=== PATIENT | female | born 1960 | race Caucasian/White ===

== ENCOUNTER → 2017-11-05 09:15 | Observation (INO) ==
[2017-11-03 10:49] LABS: Basophils % 0.2 % (0.1-2.0); Eosinophils # 0.2 K/mm3 (0.0-0.4); Eosinophils % 1.5 % (0.1-12.0); Hematocrit 39.6 % (37.0-47.0); Hemoglobin 12.2 g/dL (12.2-16.2); Lymphocytes # 1.9 K/mm3 (0.7-4.5); Lymphocytes % 18.8 K/mm3 (10-50); Mean Corpuscular HGB Conc 30.9 g/dL (31.8-35.4); Mean Corpuscular Hemoglobin 27.8 pg (27.0-31.2); Mean Corpuscular Volume 89.9 fl (81-99); Mean Platelet Volume 8.3 fl (7.4-10.4); Monocytes # 0.6 K/mm3 (0.1-1.0); Monocytes % 6.4 % (1.7-9.3); Neutrophils # 7.3 K/mm3 (1.8-7.8); Neutrophils % 73.1 % (37.0-80.0); Platelet Count 273 K/mm3 (142-424); Red Cell Distribution Width 14.8 % (11.5-17.5)
[2017-11-03 11:02] LABS: Anion Gap 16.2 mEq/L (5-15); Bilirubin,Total 0.6 mg/dL (0.2-1.0); Globulin 4.1 gm/dl (1.3-3.2); Potassium 4.2 mmoL/L (3.5-5.1); Total Protein,Serum 8.1 gm/dL (6.4-8.2)
[2017-11-03 11:04] LABS: Amylase 40 U/L (25-125); Lipase 152 u/L (73-393)
--- NOTE | 2017-11-03 13:00 | History & Physical Report ---
*Admission Date: 11/03/17 *Chief complaint: Vomiting and diarrhea *History of present illness: 57 yr old female with history of diabetes, HTN, HLD and arthritis presented to our outpatient clinic this morning with c/o vomiting, nausea, diarrhea and abdominal pain for 5 days. She felt poorly for about 24 hours with malaise prior to onset of symptoms. She held her home medications and food for 48 hours and tried to resume PO food last night but then had emisis throughout the night last night. On exam her mucous membranes were dry, bowel sounds hyperactive and high-pitched in the upper abdomen with left upper quadrant tenderness and she was admitted for IV hydration and diagnostics. [facility] History I have reviewed the patient's past medical history: Yes Medical History: Reports:: Coronary Artery Disease, Depression, Diabetes Mellitus Type 1, Diabetes Mellitus Type 2, Hyperlipidemia, Hypertension Denies:: Cancer, Internal Pacemaker, MRSA Other Medical History: Reports: Arthritis, Hypothyroidism Other Surgeries: No: Pacemaker Amputation: No Fractures: Yes - *Social History Educational Level: Completed High School Smoking Status: Former smoker Alcohol Intake: never Occupational Status: disabled Housing: house Household Members: spouse - Psychiatric History Expresses thoughts of harming self/others: None Suicide Plan Description: No Plan *Family Hx:: Cancer, Diabetes, Heart Attack, Hyperlipidemia, Hypertension Review of Systems - Review of Systems Review of systems:: pertinent systems reviewed and negative unless documented below - Constitutional Reports anorexia, Reports malaise, Reports weakness - ENT Reports dry mouth - *Gastrointestinal Reports abdominal pain, Reports belching, Reports cramping, Reports incontinent of stools, Reports loose stools, Reports nausea, Reports vomiting Meds Home Medications Medication Instructions Recorded Confirmed Type Bisoprolol Fumarate 10 mg PO DAILY 11/03/17 11/03/17 History Duloxetine HCl 60 mg PO DAILY 11/03/17 11/03/17 History Levothyroxine Sodium 75 mcg PO DAILY 11/03/17 11/03/17 History [Levothyroxine 75mcg (0.075mg) Tab] Loratadine [Allergy] 10 mg PO DAILY 11/03/17 11/03/17 History Losartan Potassium 100 mg PO DAILY 11/03/17 11/03/17 History Lovastatin 20 mg PO DAILY 11/03/17 11/03/17 History Meloxicam 15 mg PO DAILY 11/03/17 11/03/17 History Metformin HCl 500 mg PO BID 11/03/17 11/03/17 History Omeprazole [Omeprazole 40mg 40 mg PO DAILY 11/03/17 11/03/17 History Capsule] buPROPion HCl [Bupropion Xl] 300 mg PO DAILY 11/03/17 11/03/17 History Allergies Allergy/AdvReac Type Severity Reaction Status Date / Time No Known Allergies Allergy Unverified 02/27/17 15:17 Exam Vital signs and Labs for Last 24 Hours: Temp Pulse Resp BP Pulse Ox 97.8 F 84 20 165/94 100 11/03/17 09:54 11/03/17 09:54 11/03/17 09:54 11/03/17 09:54 11/03/17 09:54 Laboratory Results - last 24 hr 11/03/17 10:30: WBC 10.0, RBC 4.40, Hgb 12.2, Hct 39.6, MCV 89.9, MCH 27.8, MCHC 30.9 L, RDW 14.8, Plt Count 273, MPV 8.3, Neut % (Auto) 73.1, Lymph % (Auto ) 18.8, [place] % (Auto) 6.4, Eos % (Auto) 1.5, Baso % (Auto) 0.2, Neut # (Auto) 7.3, Lymph # (Auto) 1.9, [place] # (Auto) 0.6, Eos # (Auto) 0.2, Baso # (Auto) 0.0 11/03/17 10:30: Sodium 138, Potassium 4.2, Chloride 102, Carbon Dioxide 24, Anion Gap 16.2 H, BUN 41 H, Creatinine 2.52 H, Estimated Creat Clear 21, Estimated GFR 20 L, Est GFR ( Amer) 24 L, Glucose 116 H, Calcium 9.0, Total Bilirubin 0.6, AST 36, ALT 75, Alkaline Phosphatase 112, Total Protein 8.1 , Albumin 4.0, Globulin 4.1 H, Albumin/Globulin Ratio 1.0 L 11/03/17 10:30: Amylase 40, Lipase 152 I & O for Last 24 hours: Intake & Output 11/01/17 11/02/17 11/03/17 11/04/17 11:59 11:59 11:59 11:59 Weight 258 lb 9 oz - Constitutional no acute distress, cooperative - *Routine HEENT Exam Head: Present: normocephalic Eye: Absent: conjunctival icterus ENT: Present: mucous membranes dry, oropharynx clear - *Routine Neck Exam Present: supple. Absent: lymphadenopathy - *Routine Respiratory Exam Present: CTA bilaterally - *Routine Cardiovascular Exam Present: RRR. Absent: murmur - *Routine Abdominal Exam Present: soft, tenderness (left upper quadrant). Absent: normoactive bowel sounds (hyperactive upper abdomen), distended, rebound, guarding - *Routine Extremities Exam Present: pulses intact, normal capillary refill. Absent: edema - *Routine Skin Exam Present: intact, dry, warm - *Routine Neurological Exam Present: alert, oriented X3. Absent: motor deficit Assessment and Plan (1) Gastroenteritis Current visit: Yes Status: Acute Category: Medical Code(s): K52.9 - Noninfective gastroenteritis and colitis, unspecified (2) JOHNNIE (acute kidney injury) Current visit: Yes Status: Acute Category: Medical Code(s): N17.9 - Acute kidney failure, unspecified (3) Abdominal pain, left upper quadrant Current visit: Yes Status: Acute Category: Medical Code(s): R10.12 - Left upper quadrant pain (4) Diabetes mellitus type 2 in obese Current visit: Yes Status: Chronic Category: Medical Code(s): E11.69 - Type 2 diabetes mellitus with other specified complication; E66.9 - Obesity, unspecified (5) HTN (hypertension) Current visit: Yes Status: Chronic Qualifiers: Hypertension type: essential hypertension Qualified Code(s): I10 - Essential (primary) hypertension Category: Medical Code(s): I10 - Essential (primary) hypertension (6) Osteoarthritis Current visit: Yes Status: Chronic Qualifiers: Osteoarthritis location: multiple joints Category: Medical Code(s): M19.90 - Unspecified osteoarthritis, unspecified site (7) Morbid obesity Current visit: Yes Status: Chronic Category: Medical Code(s): E66.01 - Morbid (severe) obesity due to excess calories - Assessment and plan all Dx Assessment and Plan for all problems:: Creatinine 2.52, baseline 1.0. Likely pre-renal. Will rehydrate with NS at 125ml /hr. Vitals are currently stable. Monitor urine output and repeat AM labs. NPO until CT abdomen obtained with oral contrast to evaluate for more concerning abdominal pathology. Once CT completed will begin clear liquid diet as tolerated. Hold metformin, ARB and NSAIDS. FSBS AC and HS with low-intensity SSI for coverage. Diarrhea PCR, urinalysis, blood cultures. IV PPI for GI protection.
--- NOTE | 2017-11-03 13:06 | Pharmacy Consult Notes ---
[facility] Pharmacy VTE Monitoring - Patient Demographics Admission date: 11/03/17 Report Date: 11/03/17 Time: 13:05 Allergies/Adverse Reactions: Patient Allergies No Known Allergies Allergy (Unverified 02/27/17 15:17) Height: 1.63 m Weight: 117.282 kg - VTE Risk Labs: VTE Related Lab Results Hgb 12.2 g/dL (12.2-16.2) 11/03/17 10:30 Hct 39.6 % (37.0-47.0) 11/03/17 10:30 Plt Count 273 K/mm3 (142-424) 11/03/17 10:30 BUN 41 mg/dL (7-18) H 11/03/17 10:30 Creatinine 2.52 mg/dL (0.55-1.02) H 11/03/17 10:30 Estimated Creat Clear 21 mL/min (0-300) 11/03/17 10:30 Was VTE Risk Assessment Performed: Yes VTE Score: 5 VTE Risk Level: Low Risk - Prophylaxis VTE Prophylaxis Ordered?: Yes Types of VTE Prophylaxis: TEDS Knee High Location of Applied Device: Bilateral Lower Extremeties - VTE Diagnosis Confirmed Treatment or plan recommended: Continue Current Treatment
[2017-11-03 13:17] LABS: Microscopic, Urine URINE MICROSCOPIC (MICROSCOPIC)
[2017-11-03 13:24] LABS: Appearance,Urine CLOUDY (Clear); Blood, Urine TRACE-L (Negative); Color,Urine YELLOW (Yellow); Glucose,Urine (UA) Negative (Negative); Ketones,Urine Negative (Negative); Leukocyte Esterase,Urine 2+ (Negative); PH,Urine 5.5 (5.0-8.5); Protein,Urine TRACE (Negative); Specific Gravity, Urine >= 1.030 (1.005-1.030); Urobilinogen,Urine 0.2 EU/dl (0.2)
[2017-11-03 13:48] LABS: Amorphous Sediment,Urine 2+ /lpf; Bacteria,Urine 3+ /lpf; Bilirubin,Urine Negative (Negative); WBC,Urine 20-50 #/hpf (0-3)
[2017-11-04 06:29] LABS: Basophils % 0.3 % (0.1-2.0); Eosinophils # 0.2 K/mm3 (0.0-0.4); Eosinophils % 2.2 % (0.1-12.0); Hematocrit 35.1 % (37.0-47.0); Hemoglobin 11.1 g/dL (12.2-16.2); Lymphocytes # 2.2 K/mm3 (0.7-4.5); Mean Corpuscular HGB Conc 31.5 g/dL (31.8-35.4); Mean Corpuscular Hemoglobin 27.9 pg (27.0-31.2); Mean Corpuscular Volume 88.7 fl (81-99); Mean Platelet Volume 8.5 fl (7.4-10.4); Monocytes # 0.6 K/mm3 (0.1-1.0); Monocytes % 5.9 % (1.7-9.3); Neutrophils # 7.3 K/mm3 (1.8-7.8); Neutrophils % 70.5 % (37.0-80.0); Platelet Count 240 K/mm3 (142-424); Red Blood Count 3.96 M/mm3 (4.20-5.40); Red Cell Distribution Width 14.9 % (11.5-17.5); White Blood Count 10.4 K/mm3 (4.8-10.8)
[2017-11-04 06:34] LABS: Anion Gap 13.9 mEq/L (5-15); Potassium 3.9 mmoL/L (3.5-5.1)
[2017-11-04 06:57] LABS: Calcium 7.8 mg/dL (8.5-10.1)
--- NOTE | 2017-11-04 08:47 | Progress Note ---
Internal Medicine - PN: Subj *Date: 11/04/17 *Time: 08:46 Interval history: Patient feels better, continues to have some episodes of diarrhea. No fevers, no vomiting. Has kept on liquids this morning. Exam Vital signs and Labs for Last 24 Hours: Temp Pulse Resp BP Pulse Ox 98.8 F 96 H 18 127/82 95 11/04/17 07:35 11/04/17 07:35 11/04/17 07:35 11/04/17 07:35 11/04/17 07:35 Laboratory Results - last 24 hr 11/03/17 10:30: WBC 10.0, RBC 4.40, Hgb 12.2, Hct 39.6, MCV 89.9, MCH 27.8, MCHC 30.9 L, RDW 14.8, Plt Count 273, MPV 8.3, Neut % (Auto) 73.1, Lymph % (Auto ) 18.8, [place] % (Auto) 6.4, Eos % (Auto) 1.5, Baso % (Auto) 0.2, Neut # (Auto) 7.3, Lymph # (Auto) 1.9, [place] # (Auto) 0.6, Eos # (Auto) 0.2, Baso # (Auto) 0.0 11/03/17 10:30: Sodium 138, Potassium 4.2, Chloride 102, Carbon Dioxide 24, Anion Gap 16.2 H, BUN 41 H, Creatinine 2.52 H, Estimated Creat Clear 21, Estimated GFR 20 L, Est GFR ( Amer) 24 L, Glucose 116 H, Calcium 9.0, Total Bilirubin 0.6, AST 36, ALT 75, Alkaline Phosphatase 112, Total Protein 8.1 , Albumin 4.0, Globulin 4.1 H, Albumin/Globulin Ratio 1.0 L 11/03/17 10:30: Amylase 40, Lipase 152 11/03/17 11:22: POC Glucose 140 H 11/03/17 13:11: Stl Aeromonas (PCR) Not detected, Stl C. cayetanensis PCR Not detected, Stool Rotavirus (PCR) Not detected, Stl Adenov F 40/41 PCR Not detected, Stool Astrovirus (PCR) Not detected, Stool Campylobacter PCR Not detected, Stl C.difficile Tox PCR Not detected, Stool Cryptosporidium PCR Not detected, Stl E.coli Shiga Tox PCR Not detected, Stool E coli O157 PCR Not detected, Stl Enterotoxigenic E PCR Not detected, Stool EPEC (PCR) Not detected , Stool EAEC (PCR) Not detected, Stl E. histolytica PCR Not detected, Stool Giardia Lamblia PCR Not detected, Stool Salmonella PCR Not detected, Stool Sapovirus (PCR) Not detected, Stl P. shigelloides PCR Not detected, Stl Shigella /EIEC PCR Not detected, St Y.enterocolitica PCR Not detected, Stool Vibrio (PCR ) Not detected, Stl Vibrio cholerae PCR Not detected, Stl Norovirus GI/GII PCR Not detected 11/03/17 13:11: Urine Color Yellow, Urine Appearance Cloudy, Urine pH 5.5, Ur Specific [place] >= 1.030, Urine Protein Trace, Urine Glucose (UA) Negative, Urine Ketones Negative, Urine Blood Trace-l, Urine Nitrate Negative, Urine Bilirubin Negative, Urine Urobilinogen 0.2, Ur Leukocyte Esterase 2+ A, Urine WBC 20-50, Ur Squamous Epith Cells 10-20, Amorphous Sediment 2+, Urine Bacteria 3+, Hyaline Casts 5-10 11/03/17 16:02: POC Glucose 87 11/03/17 20:23: POC Glucose 117 H 11/04/17 06:13: WBC 10.4, RBC 3.96 L, Hgb 11.1 L, Hct 35.1 L, MCV 88.7, MCH 27.9 , MCHC 31.5 L, RDW 14.9, Plt Count 240, MPV 8.5, Neut % (Auto) 70.5, Lymph % ( Auto) 21.0, [place] % (Auto) 5.9, Eos % (Auto) 2.2, Baso % (Auto) 0.3, Neut # (Auto ) 7.3, Lymph # (Auto) 2.2, [place] # (Auto) 0.6, Eos # (Auto) 0.2, Baso # (Auto) 0.0 11/04/17 06:13: Sodium 140, Potassium 3.9, Chloride 107, Carbon Dioxide 23, Anion Gap 13.9, BUN 29 H D, Creatinine 1.70 H D, Estimated Creat Clear 31, Estimated GFR 31 L, Est GFR ( Amer) 37 L D, Glucose 118 H, Calcium 7.8 L D 11/04/17 06:38: POC Glucose 119 H I & O for Last 24 hours: Intake & Output 11/01/17 11/02/17 11/03/17 11/04/17 11:59 11:59 11:59 11:59 Intake Total 3531 / 3531 Output Total 402 / 402 Balance 3129 / 3129 Weight 258 lb 9 oz 258 lb 9 oz Microbiology Reports for the Last 24 Hours: Microbiology 11/03/17 13:11 Urine,Clean Catch Urine Culture - Preliminary Gram Negative Rods Narrative: ENT exam clear. Oral mucosa is much more moist than yesterday. Lungs have clear air movement, but rate regular without murmurs abdomen soft, slightly tender in the lower quadrants. No ankle edema. Assessment and Plan (1) Gastroenteritis Current visit: Yes Status: Acute Category: Medical Code(s): K52.9 - Noninfective gastroenteritis and colitis, unspecified (2) JOHNNIE (acute kidney injury) Current visit: Yes Status: Acute Category: Medical Code(s): N17.9 - Acute kidney failure, unspecified Overall improving. Creatinine down to 1.7. Monitor again tomorrow morning. Advance diet as tolerated. (3) Abdominal pain, left upper quadrant Current visit: Yes Status: Acute Category: Medical Code(s): R10.12 - Left upper quadrant pain (4) Diabetes mellitus type 2 in obese Current visit: Yes Status: Chronic Category: Medical Code(s): E11.69 - Type 2 diabetes mellitus with other specified complication; E66.9 - Obesity, unspecified (5) HTN (hypertension) Current visit: Yes Status: Chronic Qualifiers: Hypertension type: essential hypertension Qualified Code(s): I10 - Essential (primary) hypertension Category: Medical Code(s): I10 - Essential (primary) hypertension (6) Osteoarthritis Current visit: Yes Status: Chronic Qualifiers: Osteoarthritis location: multiple joints Category: Medical Code(s): M19.90 - Unspecified osteoarthritis, unspecified site (7) Morbid obesity Current visit: Yes Status: Chronic Category: Medical Code(s): E66.01 - Morbid (severe) obesity due to excess calories
[2017-11-05 05:25] LABS: Basophils % 0.3 % (0.1-2.0); Eosinophils # 0.2 K/mm3 (0.0-0.4); Eosinophils % 2.7 % (0.1-12.0); Lymphocytes # 1.7 K/mm3 (0.7-4.5); Lymphocytes % 30.4 K/mm3 (10-50); Mean Corpuscular HGB Conc 35.1 g/dL (31.8-35.4); Mean Corpuscular Hemoglobin 31.1 pg (27.0-31.2); Mean Corpuscular Volume 88.7 fl (81-99); Mean Platelet Volume 9.4 fl (7.4-10.4); Monocytes # 0.4 K/mm3 (0.1-1.0); Monocytes % 7.2 % (1.7-9.3); Neutrophils # 3.4 K/mm3 (1.8-7.8); Neutrophils % 59.5 % (37.0-80.0); Platelet Count 161 K/mm3 (142-424); Red Blood Count 3.16 M/mm3 (4.20-5.40); Red Cell Distribution Width 14.9 % (11.5-17.5); White Blood Count 5.7 K/mm3 (4.8-10.8)
[2017-11-05 05:33] LABS: Anion Gap 14.8 mEq/L (5-15); Calcium 7.7 mg/dL (8.5-10.1); Potassium 3.8 mmoL/L (3.5-5.1)
[2017-11-05 05:46] LABS: Hemoglobin 9.9 g/dL (12.2-16.2)
--- NOTE | 2017-11-05 08:28 | Discharge Summary ---
General - General Admission date:: 11/03/17 Discharge date: 11/05/17 HPI HPI: 57 yr old female with history of diabetes, HTN, HLD and arthritis presented to our outpatient clinic this morning with c/o vomiting, nausea, diarrhea and abdominal pain for 5 days. She felt poorly for about 24 hours with malaise prior to onset of symptoms. She held her home medications and food for 48 hours and tried to resume PO food last night but then had emisis throughout the night last night. On exam her mucous membranes were dry, bowel sounds hyperactive and high-pitched in the upper abdomen with left upper quadrant tenderness and she was admitted for IV hydration and diagnostics. Hospital Course Hospital Course: Patient was admitted, found to have acute kidney injury with creatinine greater than 2, her baseline is usually normal. CT of abdomen and pelvis was essentially unremarkable. Rehydrated and improved very nicely and diet was slowly advanced and she tolerated this well although did continue to have ongoing episodes of loose stools. Of note diarrhea PCR testing was unremarkable with no organisms detected She was found to have urinary tract infection with E. coli, pansensitive, tentative to most antibiotics. This morning she was improving. Taking oral fluids well. Plan will be to discharge home on ciprofloxacin. Have blood work ordered in 2 days to reassess her kidney function, I have instructed her to hold her metformin and meloxicam for the time being because of her diarrhea and acute kidney injury respectively. She will be followed up in our [place] office to reassess response to therapy and review her lab work. Objective Vital signs: Temp Pulse Resp BP Pulse Ox 98.3 F 86 18 133/83 98 11/05/17 07:41 11/05/17 07:41 11/05/17 07:41 11/05/17 07:41 11/05/17 07:41 Narrative: This morning patient is alert, pleasant. Talkative. Oriented 3. Oral mucosa moist. No JVD. Lungs are clear. Heart rate regular. Abdomen is soft, no tenderness noted. No edema. Morbid obesity is noted and limits her exam accuracy, complicates all aspects of her care. Results Labs on day of discharge: Labs from last 24 hours 11/05/17 11/05/17 11/05/17 06:11 05:17 05:17 WBC 5.7 D RBC 3.16 L Hgb 9.9 L D Hct 28.0 L MCV 88.7 MCH 31.1 MCHC 35.1 RDW 14.9 Plt Count 161 D MPV 9.4 Neut % (Auto) 59.5 Lymph % (Auto) 30.4 [place] % (Auto) 7.2 Eos % (Auto) 2.7 Baso % (Auto) 0.3 Neut # (Auto) 3.4 Lymph # (Auto) 1.7 [place] # (Auto) 0.4 Eos # (Auto) 0.2 Baso # (Auto) 0.0 Sodium 142 Potassium 3.8 Chloride 109 H Carbon Dioxide 22 Anion Gap 14.8 BUN 13 D Creatinine 1.34 H D Estimated Creat Clear 39 Estimated GFR 40 L Est GFR ( Amer) 49 L D Glucose 107 H POC Glucose 110 Calcium 7.7 L Urine Color Urine Appearance Urine pH Ur Specific [place] Urine Protein Urine Glucose (UA) Urine Ketones Urine Blood Urine Nitrate Urine Bilirubin Urine Urobilinogen Ur Leukocyte Esterase Urine WBC Ur Squamous Epith Cells Amorphous Sediment Urine Bacteria Hyaline Casts 11/04/17 11/04/17 11/04/17 20:39 15:17 11:32 WBC RBC Hgb Hct MCV MCH MCHC RDW Plt Count MPV Neut % (Auto) Lymph % (Auto) [place] % (Auto) Eos % (Auto) Baso % (Auto) Neut # (Auto) Lymph # (Auto) [place] # (Auto) Eos # (Auto) Baso # (Auto) Sodium Potassium Chloride Carbon Dioxide Anion Gap BUN Creatinine Estimated Creat Clear Estimated GFR Est GFR ( Amer) Glucose POC Glucose 109 117 H 125 H Calcium Urine Color Urine Appearance Urine pH Ur Specific [place] Urine Protein Urine Glucose (UA) Urine Ketones Urine Blood Urine Nitrate Urine Bilirubin Urine Urobilinogen Ur Leukocyte Esterase Urine WBC Ur Squamous Epith Cells Amorphous Sediment Urine Bacteria Hyaline Casts 11/03/17 13:11 WBC RBC Hgb Hct MCV MCH MCHC RDW Plt Count MPV Neut % (Auto) Lymph % (Auto) [place] % (Auto) Eos % (Auto) Baso % (Auto) Neut # (Auto) Lymph # (Auto) [place] # (Auto) Eos # (Auto) Baso # (Auto) Sodium Potassium Chloride Carbon Dioxide Anion Gap BUN Creatinine Estimated Creat Clear Estimated GFR Est GFR ( Amer) Glucose POC Glucose Calcium Urine Color Yellow Urine Appearance Cloudy Urine pH 5.5 Ur Specific [place] >= 1.030 Urine Protein Trace Urine Glucose (UA) Negative Urine Ketones Negative Urine Blood Trace-l Urine Nitrate Negative Urine Bilirubin Negative Urine Urobilinogen 0.2 Ur Leukocyte Esterase 2+ A Urine WBC 20-50 Ur Squamous Epith Cells 10-20 Amorphous Sediment 2+ Urine Bacteria 3+ Hyaline Casts 5-10 Preliminary micro results at discharge 11/03/17 13:11 Urine Culture - Preliminary Urine,Clean Catch Escherichia coli Gram Negative Rods DS: Diagnosis - Discharge Diagnosis (1) Gastroenteritis Status: Resolved (2) JOHNNIE (acute kidney injury) Status: Resolved (3) Abdominal pain, left upper quadrant Status: Resolved (4) Diabetes mellitus type 2 in obese Status: Chronic (5) HTN (hypertension) Status: Chronic (6) Osteoarthritis Status: Chronic (7) Morbid obesity Status: Chronic (8) E. coli UTI Status: Acute Discharge Plan - Patient Discharge Instructions ACTIVITY: Continue current activity DIET: low fat, low cholesterol - Follow up Plan Follow up with: Hari Hobbs MD [Staff Physician] - 11/08/17 Disposition: Home, Self-Alf Medications: Home Medications Medication Instructions Recorded Confirmed Type Bisoprolol Fumarate 10 mg PO DAILY 11/03/17 11/03/17 History Duloxetine HCl 60 mg PO DAILY 11/03/17 11/03/17 History Levothyroxine Sodium 75 mcg PO DAILY 11/03/17 11/03/17 History [Levothyroxine 75mcg (0.075mg) Tab] Loratadine [Allergy] 10 mg PO DAILY 11/03/17 11/03/17 History Losartan Potassium 100 mg PO DAILY 11/03/17 11/03/17 History Lovastatin 20 mg PO DAILY 11/03/17 11/03/17 History Meloxicam 15 mg PO DAILY 11/03/17 11/03/17 History Metformin HCl 500 mg PO BID 11/03/17 11/03/17 History Omeprazole [Omeprazole 40mg 40 mg PO DAILY 11/03/17 11/03/17 History Capsule] Verapamil HCl 120 mg PO BID 11/03/17 11/03/17 History buPROPion HCl [Bupropion Xl] 300 mg PO DAILY 11/03/17 11/03/17 History Prescriptions/Medication Reconciliation: New Loperamide HCl [Loperamide] 1 mg PO Q6HP PRN #15 liquid PRN Reason: Diarrhea Ciprofloxacin HCl [Ciprofloxacin 500mg Tab] 500 mg PO BID #10 tab Continue Levothyroxine Sodium [Levothyroxine 75mcg (0.075mg) Tab] 75 mcg PO DAILY Omeprazole [Omeprazole 40mg Capsule] 40 mg PO DAILY Lovastatin 20 mg PO DAILY Losartan Potassium 100 mg PO DAILY Loratadine [Allergy] 10 mg PO DAILY Duloxetine HCl 60 mg PO DAILY buPROPion HCl [Bupropion Xl] 300 mg PO DAILY Bisoprolol Fumarate 10 mg PO DAILY Verapamil HCl 120 mg PO BID Discontinued Metformin HCl 500 mg PO BID Meloxicam 15 mg PO DAILY Other Amb Orders: Basic Metabolic Panel Time Frame: 11/07/17, Facility: [facility] , Location: [facility] Location
== END | disposition home or self-care (01) ==
LOC: 2ND
PROVIDERS: ADMIT Internal Medicine Adolescent Medicine; ATTEND Internal Medicine Adolescent Medicine
CPT/HCPCS: 36415; 74176; 80048; 80053; 81001; 82150; 82962; 83690; 85025; 87040; 87086; 87088; 87186; 87507; G0378; J2405

== ENCOUNTER → 2017-11-07 10:15 | Outpatient (CLI) | payer OTHER, MEDICARE, SELFPAY ==
[2017-11-07 13:50] LABS: Anion Gap 15.6 mEq/L (5-15); Blood Urea Nitrogen 13 mg/dL (7-18); Calcium 8.4 mg/dL (8.5-10.1); Carbon Dioxide 25 mmol/L (21.0-32.0); Chloride 106 mmol/L (98-107); Creatinine,Serum 1.37 mg/dL (0.55-1.02); Estimated Glomerular Filt Rate 39 ml/min (>60); GFR (African American) 48 ML/MIN (>60); Glucose 128 mg/dL (74-106); Potassium 3.6 mmoL/L (3.5-5.1); Sodium 143 mmol/L (136-145)
== END ==
PROVIDERS: PCP Internal Medicine Adolescent Medicine; Visit Provider Internal Medicine Adolescent Medicine
DX: N17.9 Acute kidney failure, unspecified (principal)
CPT/HCPCS: 36415; 80048

== ENCOUNTER → 2018-06-21 10:59 | Outpatient (CLI) | payer OTHER, MEDICARE, SELFPAY ==
[2018-06-21 13:47] LABS: Anion Gap 17.9 mEq/L (5-15); Blood Urea Nitrogen 29 mg/dL (7-18); Calcium 8.9 mg/dL (8.5-10.1); Carbon Dioxide 25 mmol/L (21.0-32.0); Chloride 103 mmol/L (98-107); Creatinine,Serum 1.42 mg/dL (0.55-1.02); Estimated Glomerular Filt Rate 38 ml/min (>60); GFR (African American) 46 ML/MIN (>60); Glucose 144 mg/dL (74-106); Potassium 4.9 mmoL/L (3.5-5.1); Sodium 141 mmol/L (136-145)
== END ==
PROVIDERS: PCP Internal Medicine Adolescent Medicine; Visit Provider Internal Medicine Adolescent Medicine
DX: R94.4 Abnormal results of kidney function studies (principal)
CPT/HCPCS: 36415; 80048

== ENCOUNTER → 2018-07-04 09:36 | Outpatient (CLI) | payer OTHER, MEDICARE, SELFPAY ==
--- NOTE | 2018-07-04 09:47 | US_ITS ---
US Kidney CLINICAL INDICATION: ITS.REASON: ABNORMAL KIDNEY FUNCTION ORDERING PHYSICIAN: Esperanza Quintana APRN PATIENT AGE: 58 years Comparison: None FINDINGS: The right kidney is 10 x 4 x 6 cm. There is mild cortical thinning. No hydronephrosis mass or perinephric fluid. There is mild splenomegaly at 14 cm. The left kidney is 10 x 4 x 5 cm with cortical thinning. No hydronephrosis mass or perinephric fluid collection. IMPRESSION: Bilateral renal cortical thinning, no hydronephrosis apparent
== END ==
PROVIDERS: PCP Internal Medicine Adolescent Medicine; Visit Provider Nurse Practitioner Family
DX: R94.4 Abnormal results of kidney function studies (principal)
CPT/HCPCS: 76770

== ENCOUNTER → 2018-07-06 09:57 | Outpatient (CLI) | payer OTHER, MEDICARE, SELFPAY ==
[2018-07-06 11:59] LABS: Creatinine,Urine Random 101 mg/dL (20-320)
[2018-07-06 12:02] LABS: Creatinine,Serum 1.25 mg/dL (0.55-1.02)
[2018-07-06 12:36] LABS: Collection Time,Urine 24 hours; Creatinine 24 Hour,Urine 1717 mg/24hr (630-2500); Creatinine Clearance Urine 75.4 mL/min (25-115); Patient Height,Urine 63 inches; Patient Weight,Urine 270 lbs; Total Volume,Urine 1700 mL (600-1600)
[2018-07-08 16:15] LABS: Albumin, U 28.8 % (.); Alpha-1-Globulin, U 1.2 % (.); Alpha-2-Globulin, U 12.1 % (.); M-Spike, % Not Observed % (Not Observed); Prot,24hr calculated 366 mg/24 hr (30-150); Protein,Total,Urine 21.5 mg/dL (Not Estab.)
== END ==
PROVIDERS: Visit Provider Internal Medicine Adolescent Medicine
DX: N28.9 Disorder of kidney and ureter, unspecified (principal)
CPT/HCPCS: 36415; 82570; 82575; 84156; 84166

== ENCOUNTER 2019-02-18 17:22 | Observation (INO) ==
[2019-02-18 18:20] LABS: Basophils # 0.1 K/mm3 (0-0.2); Basophils % 0.7 % (0.1-2.0); Eosinophils # 0.2 K/mm3 (0.0-0.4); Eosinophils % 1.5 % (0.1-12.0); Hematocrit 32.7 % (37.0-47.0); Hemoglobin 10.1 g/dL (12.2-16.2); Lymphocytes # 2.4 K/mm3 (0.7-4.5); Lymphocytes % 20.3 % (10-50); Mean Corpuscular HGB Conc 30.9 g/dL (31.8-35.4); Mean Corpuscular Volume 87.4 fl (81-99); Mean Platelet Volume 9.3 fl (7.4-10.4); Monocytes # 0.6 K/mm3 (0.1-1.0); Monocytes % 4.9 % (1.7-9.3); Neutrophils # 8.4 K/mm3 (1.8-7.8); Neutrophils % 72.7 % (37.0-80.0); Platelet Count 231 K/mm3 (142-424); Red Blood Count 3.75 M/mm3 (4.20-5.40); Red Cell Distribution Width 14.7 % (11.5-17.5); White Blood Count 11.6 K/mm3 (4.8-10.8)
[2019-02-18 18:23] LABS: Calcium 8.4 mg/dL (8.5-10.1)
[2019-02-19 06:24] LABS: Basophils # 0.1 K/mm3 (0-0.2); Basophils % 0.6 % (0.1-2.0); Eosinophils # 0.2 K/mm3 (0.0-0.4); Eosinophils % 1.9 % (0.1-12.0); Hematocrit 31.5 % (37.0-47.0); Hemoglobin 9.5 g/dL (12.2-16.2); Lymphocytes # 2.2 K/mm3 (0.7-4.5); Lymphocytes % 22.6 % (10-50); Mean Corpuscular HGB Conc 30.2 g/dL (31.8-35.4); Mean Corpuscular Volume 87.6 fl (81-99); Mean Platelet Volume 9.7 fl (7.4-10.4); Monocytes # 0.7 K/mm3 (0.1-1.0); Monocytes % 6.9 % (1.7-9.3); Neutrophils # 6.6 K/mm3 (1.8-7.8); Neutrophils % 68.1 % (37.0-80.0); Platelet Count 230 K/mm3 (142-424); Red Cell Distribution Width 14.8 % (11.5-17.5); White Blood Count 9.7 K/mm3 (4.8-10.8)
[2019-02-19 06:48] LABS: Anion Gap 14.4 mEq/L (5-15); Calcium 8.3 mg/dL (8.5-10.1)
--- NOTE | 2019-02-19 07:59 | H&P/Discharge Summary ---
General - General Admission date:: 02/18/19 Discharge date: 02/19/19 *Admission Date: 02/18/19 *Chief complaint: Weakness and dizziness/orthostasis *History of present illness: 58-year-old white female with multiple medical problems including morbid obesity, hypertension, history of mild renal insufficiency, who is on multiple blood pressure medications. Came to the office yesterday with a chief complaint of polydipsia without polyuria, recent exposure to gastrointestinal illness from grandchildren but no diarrhea or vomiting. She had mild nausea. In the office she was found to have orthostasis with 30 point systolic pressure dropped and was very dizzy when she stood up. Transferred to the infusion department at [facility] for saline infusions and labs, was found to have significant acute kidney injury with creatinine 2.35, over her baseline of 1.4 and was admitted to hospital for further evaluation and IV fluids. [facility] History I have reviewed the patient's past medical history: Yes Medical History: Reports:: Coronary Artery Disease, Depression, Diabetes Mellitus Type 1, Diabetes Mellitus Type 2, Hyperlipidemia, Hypertension Denies:: Cancer, Internal Pacemaker, MRSA *Have you ever received a pneumonia vaccine?: No *Have you received a flu vaccine this season?: Yes Other Medical History: Reports: Arthritis, Hypothyroidism Other Surgeries: Yes: Colonoscopy, EGD, Tubal Ligation, Other. No: Pacemaker Amputation: No Fractures: Yes - *Social History Educational Level: Completed High School Smoking Status: Former smoker Tobacco Type: cigarettes Alcohol Intake: never *Occupational Status:: disabled Housing: house Household Members: spouse *Travel in the last 8 weeks: None - Psychiatric History Pschychiatric History:: Reports:: Depression Family Hx:: Cancer, Diabetes, Heart Attack, Hyperlipidemia, Hypertension Review of Systems - Review of Systems Review of systems:: pertinent systems reviewed and negative unless documented below See HPI for positive review of systems. Cardiac and pulmonary issues reviewed and are negative. Otherwise 10 point review of systems negative as noted. Exam Vital signs and Labs for Last 24 Hours: Temp Pulse Resp BP Pulse Ox 98.6 F 96 H 18 130/79 95 02/19/19 04:00 02/19/19 04:00 02/19/19 04:00 02/19/19 04:00 02/19/19 04:00 Laboratory Results - last 24 hr 02/18/19 17:45: WBC 11.6 H, RBC 3.75 L, Hgb 10.1 L, Hct 32.7 L, MCV 87.4, MCH 27.0, MCHC 30.9 L, RDW 14.7, Plt Count 231, MPV 9.3, Neut % (Auto) 72.7, Lymph % (Auto) 20.3, Antelope % (Auto) 4.9, Eos % (Auto) 1.5, Baso % (Auto) 0.7, Neut # (Auto) 8.4 H, Lymph # (Auto) 2.4, Antelope # (Auto) 0.6, Eos # (Auto) 0.2, Baso # ( Auto) 0.1 02/18/19 17:45: Sodium 139, Potassium 5.0, Chloride 101, Carbon Dioxide 26, Anion Gap 17.0 H, BUN 31 H, Creatinine 2.53 H, Estimated Creat Clear 20, Estimated GFR 19 L*, Est GFR ( Amer) 23 L, Glucose 114 H, Calcium 8.4 L 02/18/19 17:45: Lactate 2.2 H 02/18/19 21:53: Lactate 2.1 H 02/18/19 23:50: Lactate 1.3 02/19/19 06:00: Sodium 139, Potassium 4.4, Chloride 103, Carbon Dioxide 26, Anion Gap 14.4, BUN 25 H, Creatinine 1.50 H D, Estimated Creat Clear 33, Estimated GFR 35 L, Est GFR ( Amer) 43 L D, Glucose 123 H, Calcium 8.3 L 02/19/19 06:00: WBC 9.7, RBC 3.60 L, Hgb 9.5 L, Hct 31.5 L, MCV 87.6, MCH 26.5 L , MCHC 30.2 L, RDW 14.8, Plt Count 230, MPV 9.7, Neut % (Auto) 68.1, Lymph % (Auto) 22.6, Antelope % (Auto) 6.9, Eos % (Auto) 1.9, Baso % (Auto) 0.6, Neut # (Auto) 6.6, Lymph # (Auto) 2.2, Antelope # (Auto) 0.7, Eos # (Auto) 0.2, Baso # (Auto) 0.1 I & O for Last 24 hours: Intake & Output 02/16/19 02/17/19 02/18/19 02/19/19 11:59 11:59 11:59 11:59 Intake Total 3170 / 3170 Output Total 100 / 100 Balance 3070 / 3070 Weight 283 lb 7 oz Narrative: In the office patient was pleasant, talkative. Orthostatic. Dizzy when she stood up and walked. No other neurologic deficits. Cranial ner ves were intact, oropharynx dry but clear. Lungs clear. Heart rate regular. Not tachycardic. Abdomen soft and nontender. Obesity limits her exam accuracy. No CVA tenderness. Minimal suprapubic tenderness. No edema or clubbing. Hospital Course Hospital Course: Patient was admitted. Saline infusions were continued. Blood and urine cultures were drawn. She had no fever. Leukocytosis was not noted. She has a mild anemia which was slightly worsened with saline administration and dilution. However this morning she felt much better, creatinine had come down to 1.5. She is urinating normally. No more orthostasis and her dizziness is resolved. Urine and blood cultures are pending. Plan would to discharge home. I will hold her losartan, short-term follow-up in my office in 48 hours and labs tomorrow, we will need to reassess her anemia work-up and kidney function in the office. Results Labs on day of discharge: Labs from last 24 hours 02/19/19 02/19/19 02/18/19 06:00 06:00 23:50 WBC 9.7 RBC 3.60 L Hgb 9.5 L Hct 31.5 L MCV 87.6 MCH 26.5 L MCHC 30.2 L RDW 14.8 Plt Count 230 MPV 9.7 Neut % (Auto) 68.1 Lymph % (Auto) 22.6 Antelope % (Auto) 6.9 Eos % (Auto) 1.9 Baso % (Auto) 0.6 Neut # (Auto) 6.6 Lymph # (Auto) 2.2 Antelope # (Auto) 0.7 Eos # (Auto) 0.2 Baso # (Auto) 0.1 Sodium 139 Potassium 4.4 Chloride 103 Carbon Dioxide 26 Anion Gap 14.4 BUN 25 H Creatinine 1.50 H D Estimated Creat Clear 33 Estimated GFR 35 L Est GFR ( Amer) 43 L D Glucose 123 H Lactate 1.3 Calcium 8.3 L 02/18/19 02/18/19 02/18/19 21:53 17:45 17:45 WBC RBC Hgb Hct MCV MCH MCHC RDW Plt Count MPV Neut % (Auto) Lymph % (Auto) Antelope % (Auto) Eos % (Auto) Baso % (Auto) Neut # (Auto) Lymph # (Auto) Antelope # (Auto) Eos # (Auto) Baso # (Auto) Sodium 139 Potassium 5.0 Chloride 101 Carbon Dioxide 26 Anion Gap 17.0 H BUN 31 H Creatinine 2.53 H Estimated Creat Clear 20 Estimated GFR 19 L* Est GFR ( Amer) 23 L Glucose 114 H Lactate 2.1 H 2.2 H Calcium 8.4 L 02/18/19 17:45 WBC 11.6 H RBC 3.75 L Hgb 10.1 L Hct 32.7 L MCV 87.4 MCH 27.0 MCHC 30.9 L RDW 14.7 Plt Count 231 MPV 9.3 Neut % (Auto) 72.7 Lymph % (Auto) 20.3 Antelope % (Auto) 4.9 Eos % (Auto) 1.5 Baso % (Auto) 0.7 Neut # (Auto) 8.4 H Lymph # (Auto) 2.4 Antelope # (Auto) 0.6 Eos # (Auto) 0.2 Baso # (Auto) 0.1 Sodium Potassium Chloride Carbon Dioxide Anion Gap BUN Creatinine Estimated Creat Clear Estimated GFR Est GFR ( Amer) Glucose Lactate Calcium DS: Diagnosis - Discharge Diagnosis (1) Orthostatic hypotension Status: Resolved (2) JOHNNIE (acute kidney injury) Status: Resolved Discharge Plan - Patient Discharge Instructions ACTIVITY: Continue current activity DIET: continue same diet - Follow up Plan Follow up with: Esperanza Quintana APRN [Nurse Practitioner] - 02/21/19 Disposition: Home, Self-Nursing Home Medications: Home Medications Medication Instructions Recorded Confirmed Type Duloxetine HCl 60 mg PO DAILY 11/03/17 02/18/19 History Levothyroxine Sodium 75 mcg PO DAILY 11/03/17 02/18/19 History [Levothyroxine 75mcg (0.075mg) Tab] Losartan Potassium 100 mg PO DAILY 11/03/17 02/18/19 History Lovastatin 20 mg PO DAILY 11/03/17 02/18/19 History Omeprazole [Omeprazole 40mg 40 mg PO DAILY 11/03/17 02/18/19 History Capsule] Verapamil HCl 120 mg PO BID 11/03/17 02/18/19 History Cetirizine HCl [Zyrtec] 10 mg PO DAILY 02/18/19 02/18/19 History Prescriptions/Medication Reconciliation: Continued Levothyroxine Sodium [Levothyroxine 75mcg (0.075mg) Tab] 75 mcg PO DAILY Omeprazole [Omeprazole 40mg Capsule] 40 mg PO DAILY Lovastatin 20 mg PO DAILY Duloxetine HCl 60 mg PO DAILY Verapamil HCl 120 mg PO BID Cetirizine HCl [Zyrtec] 10 mg PO DAILY Discontinued Losartan Potassium 100 mg PO DAILY Other Amb Orders: Basic Metabolic Panel Time Frame: 02/20/19, Location: None Selected Complete Blood Count Auto Diff Time Frame: 02/20/19, Location: None Selected - Problem Reconciliation Problems Reviewed?: Yes
--- NOTE | 2019-02-19 08:15 | Pharmacy Consult Notes ---
[facility] Pharmacy VTE Monitoring - Patient Demographics Admission date: 02/19/19 Report Date: 02/19/19 Time: 08:14 Allergies/Adverse Reactions: Patient Allergies No Known Allergies Allergy (Unverified 02/27/17 15:17) Height: 1.6 m Weight: 128.565 kg - VTE Risk Labs: VTE Related Lab Results Hgb 9.5 g/dL (12.2-16.2) L 02/19/19 06:00 Hct 31.5 % (37.0-47.0) L 02/19/19 06:00 Plt Count 230 K/mm3 (142-424) 02/19/19 06:00 BUN 25 mg/dL (7-18) H 02/19/19 06:00 Creatinine 1.50 mg/dL (0.55-1.02) H D 02/19/19 06:00 Estimated Creat Clear 33 mL/min (50-200) 02/19/19 06:00 Was VTE Risk Assessment Performed: Yes VTE Score: 5 VTE Risk Level: Low Risk - Prophylaxis VTE Prophylaxis Ordered?: Yes Types of VTE Prophylaxis: TEDS Knee High Location of Applied Device: Bilateral Lower Extremeties - VTE Diagnosis Confirmed Treatment or plan recommended: Continue Current Treatment
== END 2019-02-19 10:00 | disposition home or self-care (01) ==
LOC: INF 17:22 → 2ND 17:22
PROVIDERS: ADMIT Internal Medicine Adolescent Medicine; ATTEND Internal Medicine Adolescent Medicine
CPT/HCPCS: 36415; 80048; 83605; 85025; 87040; 87086; 87088; 87186; 96365; 96366; G0378; G0463

== ENCOUNTER → 2019-02-20 14:18 | Outpatient (CLI) | payer OTHER, MEDICARE, SELFPAY ==
[2019-02-20 15:29] LABS: Anion Gap 16.6 mEq/L (5-15); Blood Urea Nitrogen 20 mg/dL (7-18); Calcium 8.5 mg/dL (8.5-10.1); Carbon Dioxide 26 mmol/L (21.0-32.0); Chloride 103 mmol/L (98-107); Creatinine,Serum 1.27 mg/dL (0.55-1.02); Estimated Glomerular Filt Rate 43 ml/min (>60); GFR (African American) 52 ML/MIN (>60); Glucose 165 mg/dL (74-106); Potassium 4.6 mmoL/L (3.5-5.1); Sodium 141 mmol/L (136-145)
== END ==
PROVIDERS: Visit Provider Internal Medicine Adolescent Medicine
DX: D64.9 Anemia, unspecified (principal)
CPT/HCPCS: 36415; 80048

== ENCOUNTER 2019-03-16 12:46 | Observation (INO) ==
--- NOTE | 2019-03-16 12:59 | Emergency Department Note ---
ED Disposition Clinical Impression: Bradycardia, Generalized weakness, Lightheadedness Hypotension Qualifiers: Hypotension type: hypotension due to drug Qualified Code(s): I95.2 - Hypotension due to drugs Disposition: Admitted as Observation Condition on Discharge: Fair (Stable) Time of Disposition: 16:00 - Critical Care Critical Care Time: No Attestation: On 03/16/19, the high probability of a clinically significant, sudden or life threatening deterioration of the following system(s) required my full and direct attention, intervention and personal management. The time I documented below is in addition to time spent performing reported procedures but includes the following listed in this critical care notation. Medical Decision Making - Medical Records Medical records reviewed: Yes: I reviewed the patient's medical records. - Will Inquiry Pt receiving controlled substance: No Will was queried for this patient: No Vital Signs: 03/16/19 12:46 03/16/19 12:59 03/16/19 14:11 Pulse Rate [Radial] 62 43 L 55 L Respiratory Rate 22 Blood Pressure [Right Arm] 74/43 L 114/46 L 120/70 Blood Pressure Mean [Right Arm] 53 68 86 Blood Pressure Source [Right Arm] Automatic Cuff Blood Pressure Position [Right Arm] Sitting Sitting 02 Sat by Pulse Oximetry 96 97 Oxygen Delivery Method Room Air 03/16/19 15:03 Pulse Rate [Radial] 57 L Respiratory Rate Blood Pressure [Right Arm] 128/78 Blood Pressure Mean [Right Arm] 94 Blood Pressure Source [Right Arm] Blood Pressure Position [Right Arm] Sitting 02 Sat by Pulse Oximetry Oxygen Delivery Method - Lab Data Lab results reviewed: Yes: I reviewed the patient's lab results. Lab Results 03/16/19 12:56: WBC 8.4, RBC 3.76 L, Hgb 10.1 L, Hct 33.6 L, MCV 89.2, MCH 26.9 L, MCHC 30.2 L, RDW 15.3, Plt Count 264, MPV 9.8, Neut % (Auto) 59.9, Lymph % (Auto) 31.7, [place]ry % (Auto) 4.7, Eos % (Auto) 2.2, Baso % (Auto) 1.4, Neut # (Auto) 5.1, Lymph # (Auto) 2.7, [place] # (Auto) 0.4, Eos # (Auto) 0.2, Baso # (Auto) 0.1 03/16/19 12:56: Sodium 139, Potassium 5.5 H, Chloride 104, Carbon Dioxide 22, Anion Gap 18.5 H, BUN 26 H, Creatinine 1.62 H, Estimated Creat Clear 30, Estimated GFR 32 L, Est GFR ( Amer) 39 L, Glucose 262 H, Calcium 8.3 L, Total Bilirubin 0.2, AST 21, ALT 37, Alkaline Phosphatase 79, Troponin I < 0.02, Total Protein 6.8, Albumin 3.4, Globulin 3.4 H, Albumin/Globulin Ratio 1.0 L 03/16/19 12:56: Lactate 3.8 H Result diagrams: 03/16/19 12:56 03/16/19 12:56 Orders (Tests/Meds): ED MEDICATIONS Generic Name Dose Route Start Last Admin Trade Name Freq PRN Reason Stop Dose Admin Sodium Chloride 1,000 mls @ 999 mls/hr 03/16/19 13:15 03/16/19 13:00 Sod Chlor 0.9% 1000ml Bag IV 03/16/19 14:15 999 mls/hr .Q1H1M NHI Administration Sodium Chloride 1,800 mls @ 999 mls/hr 03/16/19 14:15 03/16/19 14:06 Sod Chlor 0.9% 1000ml Bag IV 03/16/19 16:03 999 mls/hr .Q1H49M NHI Administration ORDERS Category Date Time Status Chest XR -- portable [XR chest portable] Stat Exams 03/16/19 13:04 Taken Chest XR 2 view (NOT portable) [XR chest 2V] Stat Exams 03/16/19 14:13 Taken Troponin I Q3H Lab 03/16/19 16:15 Ordered Troponin I Q3H Lab 03/16/19 19:15 Ordered Urinalysis and Microscopic Stat Lab 03/16/19 13:06 Ordered - ECG Data Tracing #1 I reviewed this ECG and interpreted as documented below: (EKG at 12:52 PM showed a junctional rhythm with a rate of 49 bpm.) Medical Decision Narrative: 13:01 Patient evaluated. Patient noted to be hypotensive with a blood pressure in the 70s. EKG, chest x-ray and cardiac labs ordered. IV fluid bolus also ordered. Check was 252 mg/dL. 15:57 results of work-up reviewed including EKG, chest x-ray and labs. Attempted to give us a urine specimen however she missed the hat. She has been unable to urinate since that time. UA is still pending. I did discuss this patient's case with Dr. Infante who is on-call for her PCP. He is agreed to admit this patient observation. After history clinical condition on exam and results of her work-up I believe the patient did take an extra Carvedilol this morning shortly before her symptoms of dizziness and hypotension as well as bradycardia started. Patient heart rate is improved. She is not experiencing dizziness at this time. Blood pressure is also improved with fluids and after be monitored here in the ER. I have discussed results of work-up, diagnosis and care plan with patient and family. They understand, agree and all questions answered. Patient will be admitted for observation overnight. General Adult HPI - General Chief complaint: Dizziness Stated complaint: dizzy Time Seen by Provider: 03/16/19 12:49 Mode of Arrival: Wheelchair Source of Information: Patient Limitations: No Limitations Description of Symptoms (Recalled from ER Triage Doc. by RN): felt dizzy at [employer] - History of Present Illness HPI narrative: Patient is here in emergency room via private vehicle with for evaluation complaint having dizziness. Patient states she began to feel dizzy and lightheaded around 10:00 this morning after going to her [employer]. Patient states that her symptoms seem to gotten worse since that time. She has generalized weakness especially in both of her legs. No headache. She denies chest pain or shortness of breath. No abdominal pain. No nausea vomiting or diarrhea. No recent upper respiratory symptoms. Patient has a history of hypertension. 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 She cannot be certain that she may not have taken extra blood pressure medicine this morning. Patient also denies having any recent vaginal or rectal bleeding. No headache. No other complaints. - Related Data Home Medications Medication Instructions Recorded Confirmed Duloxetine HCl 60 mg PO DAILY 11/03/17 02/18/19 Levothyroxine Sodium 75 mcg PO DAILY 11/03/17 02/18/19 [Levothyroxine 75mcg (0.075mg) Tab] Omeprazole [Omeprazole 40mg 40 mg PO DAILY 11/03/17 02/18/19 Capsule] Verapamil HCl 120 mg PO BID 11/03/17 02/18/19 Cetirizine HCl [Zyrtec] 10 mg PO DAILY 02/18/19 02/18/19 ALPRAZolam [Xanax 0.5mg tab] 0.5 mg PO TIDP PRN 02/19/19 02/19/19 Cholecalciferol (Vitamin D3) 2,000 unit PO DAILY 02/19/19 02/19/19 [Vitamin D3] Fluticasone Propionate 1 spray NOSTRIL-B DAILY 02/19/19 02/19/19 Metformin HCl [Metformin 1000mg 1,000 mg PO BID 02/19/19 02/19/19 Tablets] Niacin 500 mg PO PM 02/19/19 02/19/19 Simvastatin 40 mg PO HS 02/19/19 02/19/19 buPROPion HCl [Bupropion Xl] 300 mg PO DAILY 02/19/19 02/19/19 carvediloL [Carvedilol 25mg Tab] 25 mg PO BID 02/19/19 02/19/19 Allergies Allergy/AdvReac Type Severity Reaction Status Date / Time No Known Allergies Allergy Unverified 02/27/17 15:17 [facility] History - Hepatitis A Screen Drug use history?: No High risk sexual behaviors?: No History of sexually transmitted infection?: No Currently employed?: No Childcare worker?: No Do you have indoor plumbing?: Yes Do you have electricity?: Yes Attestation statement:: This patient has been screened for Hepatitis A risk factors. I have reviewed the patient's past medical history: No Medical History: Reports:: Coronary Artery Disease, Depression, Diabetes Mellitus Type 1, Diabetes Mellitus Type 2, Hyperlipidemia, Hypertension Denies:: Cancer, Internal Pacemaker, MRSA Other Medical History: Reports: Arthritis, Hypothyroidism Other Surgeries: Yes: Colonoscopy, EGD, Tubal Ligation, Other. No: Pacemaker Amputation: No Fractures: Yes - Social History Educational Level: Completed High School Smoking Status: Former smoker Tobacco Type: cigarettes Alcohol Intake: never Occupational Status: disabled Housing: house Household Members: spouse - Psychiatric History Pschychiatric History:: Reports:: Depression Family Hx:: Cancer, Diabetes, Heart Attack, Hyperlipidemia, Hypertension ROS Obtained: Yes All systems reviewed & no additional complaints - Constitutional Constitutional: Reports system reviewed and no additional complaints, except as docu, Reports weakness (generalized) - Eyes Eyes: Reports system reviewed and no additional complaints, except as docu, Reports as per HPI (I'm "blind") - ENT Ears, Nose, Mouth, and Throat: Reports system reviewed and no additional complaints, except as docu, Denies nasal congestion - Cardiovascular Cardiovascular: Reports system reviewed and no additional complaints, except as docu, Denies chest pain, Denies diaphoresis, Denies dyspnea - Respiratory Respiratory: Yes system reviewed and no additional complaints, except as docu, No cough, No dyspnea - Gastrointestinal Gastrointestingal: Reports: system reviewed and no additional complaints, except as docu. Denies: abdominal pain, diarrhea, nausea, vomiting - Genitourinary Female Genitourinary: Reports system reviewed and no additional complaints, except as docu, Denies dysuria, Denies hematuria - Musculoskeletal Musculoskeletal: Reports system reviewed and no additional complaints, except as docu - Integumentary/Breasts Skin/Breast: Reports system reviewed and no additional complaints, except as docu, Denies rash - Neurologic Neurologic: Reports system reviewed and no additional complaints, except as docu, Reports as per HPI, Denies abnormal speech, Reports dizziness, Denies focal weakness, Denies numbness, Denies seizure-like activity - Endocrine Endocrine: Reports system reviewed and no additional complaints, except as docu - Hematologic/Lymphatic Henatologic/Lymphatic: Reports system reviewed and no additional complaints, except as docu - Allergic/Immunologic Allergic/Immunologic: Reports system reviewed and no additional complaints, except as docu Physical Exam - General General appearance: alert, in no apparent distress, obese - Head Head exam: atraumatic, normocephalic, normal inspection - Eye Eye exam: Present: normal appearance, PERRL, EOMI - ENT ENT exam: Present: normal oropharynx, mucous membranes moist, other (Discharge from ears or nares) - Neck Neck exam: Present: full ROM, trachea midline - Chest Chest inspection: Present: normal inspection, symmetric chest wall rise - Respiratory Respiratory exam: Present: normal lung sounds bilaterally. Absent: respiratory distress - Cardiovascular Cardiovascular exam: Present: bradycardia, other (Gentle rhythm on EKG at 49 bpm at 12:52 PM) - Abdominal Exam Abdominal exam: Present: soft, normal bowel sounds. Absent: distention, tenderness, guarding, rebound, rigidity, Salgado's sign, tenderness at McBurney's Point - Extremities Exam Extremities exam: Present: normal inspection, full ROM - Neurological Exam Neurological exam: Present: alert, oriented X3, CN II-XII intact, other (NIH Stroke Scale is zero) - Psychiatric Psychiatric exam: Present: normal affect, normal mood - Skin Skin exam: Present: warm, dry, intact. Absent: rash
[2019-03-16 13:13] LABS: Basophils # 0.1 K/mm3 (0-0.2); Basophils % 1.4 % (0.1-2.0); Eosinophils # 0.2 K/mm3 (0.0-0.4); Eosinophils % 2.2 % (0.1-12.0); Hematocrit 33.6 % (37.0-47.0); Hemoglobin 10.1 g/dL (12.2-16.2); Lymphocytes # 2.7 K/mm3 (0.7-4.5); Lymphocytes % 31.7 % (10-50); Mean Corpuscular HGB Conc 30.2 g/dL (31.8-35.4); Mean Corpuscular Volume 89.2 fl (81-99); Mean Platelet Volume 9.8 fl (7.4-10.4); Monocytes # 0.4 K/mm3 (0.1-1.0); Monocytes % 4.7 % (1.7-9.3); Neutrophils # 5.1 K/mm3 (1.8-7.8); Neutrophils % 59.9 % (37.0-80.0); Platelet Count 264 K/mm3 (142-424); Red Blood Count 3.76 M/mm3 (4.20-5.40); Red Cell Distribution Width 15.3 % (11.5-17.5); White Blood Count 8.4 K/mm3 (4.8-10.8)
[2019-03-16 13:24] LABS: Alanine Aminotransferase 37 U/L (12-78); Albumin Level 3.4 gm/dL (3.4-5.0); Alkaline Phosphatase 79 U/L (46-116); Anion Gap 18.5 mEq/L (5-15); Aspartate Amino Transferase 21 U/L (15-37); Bilirubin,Total 0.2 mg/dL (0.2-1.0); Blood Urea Nitrogen 26 mg/dL (7-18); Calcium 8.3 mg/dL (8.5-10.1); Carbon Dioxide 22 mmol/L (21.0-32.0); Chloride 104 mmol/L (98-107); Globulin 3.4 gm/dl (1.3-3.2); Glucose 262 mg/dL (74-106); Sodium 139 mmol/L (136-145); Total Protein,Serum 6.8 gm/dL (6.4-8.2)
[2019-03-16 18:31] LABS: Microscopic, Urine URINE MICROSCOPIC (MICROSCOPIC)
[2019-03-16 18:35] LABS: Appearance,Urine CLEAR (Clear); Bilirubin,Urine Negative (Negative); Blood, Urine Negative (Negative); Color,Urine YELLOW (Yellow); Glucose,Urine (UA) Negative (Negative); Ketones,Urine Negative (Negative); Leukocyte Esterase,Urine Negative (Negative); PH,Urine 5.5 (5.0-8.5); Protein,Urine Negative (Negative); Specific Gravity, Urine 1.025 (1.005-1.030); Urobilinogen,Urine 0.2 EU/dl (0.2)
[2019-03-16 18:38] LABS: Squamous Epithelial Cell,Urine Occasional #/hpf (0-5)
[2019-03-17 07:16] LABS: Anion Gap 15.2 mEq/L (5-15); Calcium 8.3 mg/dL (8.5-10.1)
[2019-03-17 07:18] LABS: Basophils # 0.1 K/mm3 (0-0.2); Basophils % 0.9 % (0.1-2.0); Eosinophils # 0.3 K/mm3 (0.0-0.4); Eosinophils % 2.6 % (0.1-12.0); Hematocrit 31.7 % (37.0-47.0); Hemoglobin 9.9 g/dL (12.2-16.2); Lymphocytes # 3.3 K/mm3 (0.7-4.5); Lymphocytes % 34.8 % (10-50); Mean Corpuscular HGB Conc 31.3 g/dL (31.8-35.4); Mean Corpuscular Volume 86.6 fl (81-99); Monocytes # 0.5 K/mm3 (0.1-1.0); Monocytes % 5.1 % (1.7-9.3); Neutrophils # 5.4 K/mm3 (1.8-7.8); Neutrophils % 56.6 % (37.0-80.0); Platelet Count 203 K/mm3 (142-424); Red Blood Count 3.66 M/mm3 (4.20-5.40); Red Cell Distribution Width 15.1 % (11.5-17.5); White Blood Count 9.5 K/mm3 (4.8-10.8)
--- NOTE | 2019-03-17 07:43 | Pharmacy Consult Notes ---
[facility] Pharmacy VTE Monitoring - Patient Demographics Admission date: 03/16/19 Report Date: 03/17/19 Time: 07:43 Allergies/Adverse Reactions: Patient Allergies No Known Allergies Allergy (Unverified 02/27/17 15:17) Height: 1.6 m Weight: 129.331 kg Patient Problems: Current Active Problems Hypotension (Acute) Bradycardia (Acute) Generalized weakness (Acute) Lightheadedness (Acute) - VTE Risk Labs: VTE Related Lab Results Hgb 9.9 g/dL (12.2-16.2) L 03/17/19 06:48 Hct 31.7 % (37.0-47.0) L 03/17/19 06:48 Plt Count 203 K/mm3 (142-424) 03/17/19 06:48 BUN 21 mg/dL (7-18) H 03/17/19 06:48 Creatinine 1.11 mg/dL (0.55-1.02) H D 03/17/19 06:48 Estimated Creat Clear 44 mL/min (50-200) 03/17/19 06:48 Was VTE Risk Assessment Performed: Yes VTE Score: 4 VTE Risk Level: Low Risk - Prophylaxis VTE Prophylaxis Ordered?: Yes Types of VTE Prophylaxis: TEDS Knee High Location of Applied Device: Bilateral Lower Extremeties - VTE Diagnosis Confirmed Treatment or plan recommended: Continue Current Treatment
--- NOTE | 2019-03-17 08:35 | H&P/Discharge Summary ---
General - General Admission date:: 03/16/19 Discharge date: 03/17/19 *Admission Date: 03/16/19 *Chief complaint: Weakness and dizziness *History of present illness: 59-year-old white female with multiple medical problems with history of exquisite sensitivity to blood pressure medications, who came to the emergency department with weakness, fatigue and dizziness, and was found to be hypotensive. On review of her medication history from the ER it turns out she took double her carvedilol yesterday morning secondary to some vision disturbances that she has. She was admitted overnight for observation and correction of her blood pressure issues. [facility] History I have reviewed the patient's past medical history: Yes Medical History: Reports:: Coronary Artery Disease, Depression, Diabetes Mellitus Type 1, Diabetes Mellitus Type 2, Hyperlipidemia, Hypertension Denies:: Cancer, Internal Pacemaker, MRSA *Have you ever received a pneumonia vaccine?: No *Have you received a flu vaccine this season?: Yes Other Medical History: Reports: Arthritis, Hypothyroidism Other Surgeries: Yes: Colonoscopy, EGD, Tubal Ligation, Other. No: Pacemaker Amputation: No Fractures: Yes - *Social History Educational Level: Completed High School Smoking Status: Former smoker Tobacco Type: cigarettes # Packs/Day (cigarettes): 1 Smoking End Date: 2015 Alcohol Intake: never *Occupational Status:: disabled Housing: house Household Members: spouse, family *Travel in the last 8 weeks: None - Psychiatric History Pschychiatric History:: Reports:: Depression Family Hx:: Cancer, Diabetes, Heart Attack, Hyperlipidemia, Hypertension Review of Systems - Review of Systems Review of systems:: pertinent systems reviewed and negative unless documented below - *Neurologic Reports dizziness, Reports weakness (generalized), Denies abnormal speech, Denies localized weakness, Denies numbness, Denies seizure-like activity Exam Vital signs and Labs for Last 24 Hours: Temp Pulse Resp BP Pulse Ox 98.3 F 79 16 149/78 H 98 03/17/19 04:00 03/17/19 04:00 03/17/19 04:00 03/17/19 04:00 03/17/19 04:00 Laboratory Results - last 24 hr 03/16/19 12:56: WBC 8.4, RBC 3.76 L, Hgb 10.1 L, Hct 33.6 L, MCV 89.2, MCH 26.9 L, MCHC 30.2 L, RDW 15.3, Plt Count 264, MPV 9.8, Neut % (Auto) 59.9, Lymph % (Auto) 31.7, [place] % (Auto) 4.7, Eos % (Auto) 2.2, Baso % (Auto) 1.4, Neut # (Auto) 5.1, Lymph # (Auto) 2.7, [place] # (Auto) 0.4, Eos # (Auto) 0.2, Baso # (Auto) 0.1 03/16/19 12:56: Sodium 139, Potassium 5.5 H, Chloride 104, Carbon Dioxide 22, Anion Gap 18.5 H, BUN 26 H, Creatinine 1.62 H, Estimated Creat Clear 30, Estimated GFR 32 L, Est GFR ( Amer) 39 L, Glucose 262 H, Calcium 8.3 L, Total Bilirubin 0.2, AST 21, ALT 37, Alkaline Phosphatase 79, Troponin I < 0.02, Total Protein 6.8, Albumin 3.4, Globulin 3.4 H, Albumin/Globulin Ratio 1.0 L 03/16/19 12:56: Lactate 3.8 H 03/16/19 16:23: Troponin I < 0.02 03/16/19 17:10: Lactate 2.3 H 03/16/19 18:27: Urine Color Yellow, Urine Appearance Clear, Urine pH 5.5, Ur Specific [place] 1.025, Urine Protein Negative, Urine Glucose (UA) Negative, Urine Ketones Negative, Urine Blood Negative, Urine Nitrate Negative, Urine Bilirubin Negative, Urine Urobilinogen 0.2, Ur Leukocyte Esterase Negative, Ur Squamous Epith Cells Occasional 03/16/19 19:45: Troponin I < 0.02 03/16/19 19:45: Lactate 2.3 H 03/17/19 06:48: WBC 9.5, RBC 3.66 L, Hgb 9.9 L, Hct 31.7 L, MCV 86.6, MCH 27.1, MCHC 31.3 L, RDW 15.1, Plt Count 203, MPV 9.0, Neut % (Auto) 56.6, Lymph % (Auto) 34.8, [place] % (Auto) 5.1, Eos % (Auto) 2.6, Baso % (Auto) 0.9, Neut # (Auto) 5.4, Lymph # (Auto) 3.3, [place] # (Auto) 0.5, Eos # (Auto) 0.3, Baso # (Auto) 0.1 03/17/19 06:48: Sodium 141, Potassium 4.2 D, Chloride 104, Carbon Dioxide 26, Anion Gap 15.2 H, BUN 21 H, Creatinine 1.11 H D, Estimated Creat Clear 44, Estimated GFR 50 L, Est GFR ( Amer) 60 D, Glucose 111 H D, Calcium 8.3 L I & O for Last 24 hours: Intake & Output 03/14/19 03/15/19 03/16/19 03/17/19 11:59 11:59 11:59 11:59 Intake Total 1033 / 1033 Output Total 800 / 800 Balance 233 / 233 Weight 285 lb 2 oz Narrative: Patient feeling much better. Up in a chair, no complaints. No orthostasis. Vital signs have normalized. Heart rate regular. Anterior lung arenas are clear. Abdomen obese but soft. No visible edema. Neurologically patient is intact. Oropharynx clear. Hospital Course Hospital Course: Patient was admitted. Blood pressure medications were held. She was given low- dose IV fluids. This morning she is much better. She will be discharged home. Our pharmacy service will investigate an outpatient pharmacy they can prepackaged her medications for her. Otherwise we will make no medication changes. I will see her next week. Results Labs on day of discharge: Labs from last 24 hours 03/17/19 03/17/19 03/16/19 06:48 06:48 19:45 WBC 9.5 RBC 3.66 L Hgb 9.9 L Hct 31.7 L MCV 86.6 MCH 27.1 MCHC 31.3 L RDW 15.1 Plt Count 203 MPV 9.0 Neut % (Auto) 56.6 Lymph % (Auto) 34.8 [place] % (Auto) 5.1 Eos % (Auto) 2.6 Baso % (Auto) 0.9 Neut # (Auto) 5.4 Lymph # (Auto) 3.3 [place] # (Auto) 0.5 Eos # (Auto) 0.3 Baso # (Auto) 0.1 Sodium 141 Potassium 4.2 D Chloride 104 Carbon Dioxide 26 Anion Gap 15.2 H BUN 21 H Creatinine 1.11 H D Estimated Creat Clear 44 Estimated GFR 50 L Est GFR ( Amer) 60 D Glucose 111 H D Lactate 2.3 H Calcium 8.3 L Total Bilirubin AST ALT Alkaline Phosphatase Troponin I Total Protein Albumin Globulin Albumin/Globulin Ratio Urine Color Urine Appearance Urine pH Ur Specific [place] Urine Protein Urine Glucose (UA) Urine Ketones Urine Blood Urine Nitrate Urine Bilirubin Urine Urobilinogen Ur Leukocyte Esterase Ur Squamous Epith Cells 03/16/19 03/16/19 03/16/19 19:45 18:27 17:10 WBC RBC Hgb Hct MCV MCH MCHC RDW Plt Count MPV Neut % (Auto) Lymph % (Auto) [place] % (Auto) Eos % (Auto) Baso % (Auto) Neut # (Auto) Lymph # (Auto) [place] # (Auto) Eos # (Auto) Baso # (Auto) Sodium Potassium Chloride Carbon Dioxide Anion Gap BUN Creatinine Estimated Creat Clear Estimated GFR Est GFR ( Amer) Glucose Lactate 2.3 H Calcium Total Bilirubin AST ALT Alkaline Phosphatase Troponin I < 0.02 Total Protein Albumin Globulin Albumin/Globulin Ratio Urine Color Yellow Urine Appearance Clear Urine pH 5.5 Ur Specific [place] 1.025 Urine Protein Negative Urine Glucose (UA) Negative Urine Ketones Negative Urine Blood Negative Urine Nitrate Negative Urine Bilirubin Negative Urine Urobilinogen 0.2 Ur Leukocyte Esterase Negative Ur Squamous Epith Cells Occasional 03/16/19 03/16/19 03/16/19 16:23 12:56 12:56 WBC RBC Hgb Hct MCV MCH MCHC RDW Plt Count MPV Neut % (Auto) Lymph % (Auto) [place] % (Auto) Eos % (Auto) Baso % (Auto) Neut # (Auto) Lymph # (Auto) [place] # (Auto) Eos # (Auto) Baso # (Auto) Sodium 139 Potassium 5.5 H Chloride 104 Carbon Dioxide 22 Anion Gap 18.5 H BUN 26 H Creatinine 1.62 H Estimated Creat Clear 30 Estimated GFR 32 L Est GFR ( Amer) 39 L Glucose 262 H Lactate 3.8 H Calcium 8.3 L Total Bilirubin 0.2 AST 21 ALT 37 Alkaline Phosphatase 79 Troponin I < 0.02 < 0.02 Total Protein 6.8 Albumin 3.4 Globulin 3.4 H Albumin/Globulin Ratio 1.0 L Urine Color Urine Appearance Urine pH Ur Specific [place] Urine Protein Urine Glucose (UA) Urine Ketones Urine Blood Urine Nitrate Urine Bilirubin Urine Urobilinogen Ur Leukocyte Esterase Ur Squamous Epith Cells 03/16/19 12:56 WBC 8.4 RBC 3.76 L Hgb 10.1 L Hct 33.6 L MCV 89.2 MCH 26.9 L MCHC 30.2 L RDW 15.3 Plt Count 264 MPV 9.8 Neut % (Auto) 59.9 Lymph % (Auto) 31.7 [place] % (Auto) 4.7 Eos % (Auto) 2.2 Baso % (Auto) 1.4 Neut # (Auto) 5.1 Lymph # (Auto) 2.7 [place] # (Auto) 0.4 Eos # (Auto) 0.2 Baso # (Auto) 0.1 Sodium Potassium Chloride Carbon Dioxide Anion Gap BUN Creatinine Estimated Creat Clear Estimated GFR Est GFR ( Amer) Glucose Lactate Calcium Total Bilirubin AST ALT Alkaline Phosphatase Troponin I Total Protein Albumin Globulin Albumin/Globulin Ratio Urine Color Urine Appearance Urine pH Ur Specific [place] Urine Protein Urine Glucose (UA) Urine Ketones Urine Blood Urine Nitrate Urine Bilirubin Urine Urobilinogen Ur Leukocyte Esterase Ur Squamous Epith Cells DS: Diagnosis - Discharge Diagnosis (1) Hypotension Status: Resolved Discharge Plan - Patient Discharge Instructions ACTIVITY: Continue current activity DIET: continue same diet Patient Instructions: DI for Bradycardia, DI for Hypotension - Follow up Plan Follow up with: Red Lee MD [Primary Care Provider] - 03/25/19 Disposition: Home, Self-Jail Medications: Home Medications Medication Instructions Recorded Confirmed Type Duloxetine HCl 60 mg PO DAILY 11/03/17 03/16/19 History Levothyroxine Sodium 75 mcg PO DAILY 11/03/17 03/16/19 History [Levothyroxine 75mcg (0.075mg) Tab] Omeprazole [Omeprazole 40mg 40 mg PO DAILY 11/03/17 03/16/19 History Capsule] Verapamil HCl 120 mg PO BID 11/03/17 03/16/19 History Cetirizine HCl [Zyrtec] 10 mg PO DAILY 02/18/19 03/16/19 History ALPRAZolam [Xanax 0.5mg tab] 0.5 mg PO TIDP PRN 02/19/19 03/16/19 History Cholecalciferol (Vitamin D3) 2,000 unit PO DAILY 02/19/19 03/16/19 History [Vitamin D3] Metformin HCl [Metformin 1000mg 1,000 mg PO BID 02/19/19 03/16/19 History Tablets] Simvastatin 40 mg PO HS 02/19/19 03/16/19 History carvediloL [Carvedilol 25mg Tab] 25 mg PO BID 02/19/19 03/16/19 History Acetaminophen [Tylenol Arthritis] 650 mg PO BID 03/16/19 03/16/19 History Ibuprofen [Ibuprofen 200MG Capsule] 200 mg PO BID 03/16/19 03/16/19 History Prescriptions/Medication Reconciliation: Continued Levothyroxine Sodium [Levothyroxine 75mcg (0.075mg) Tab] 75 mcg PO DAILY Omeprazole [Omeprazole 40mg Capsule] 40 mg PO DAILY Duloxetine HCl 60 mg PO DAILY Verapamil HCl 120 mg PO BID Cetirizine HCl [Zyrtec] 10 mg PO DAILY ALPRAZolam [Xanax 0.5mg tab] 0.5 mg PO TIDP PRN PRN Reason: Anxiety Cholecalciferol (Vitamin D3) [Vitamin D3] 2,000 unit PO DAILY Metformin HCl [Metformin 1000mg Tablets] 1,000 mg PO BID Simvastatin 40 mg PO HS carvediloL [Carvedilol 25mg Tab] 25 mg PO BID Acetaminophen [Tylenol Arthritis] 650 mg PO BID Ibuprofen [Ibuprofen 200MG Capsule] 200 mg PO BID - Problem Reconciliation Problems Reviewed?: Yes
--- NOTE | 2019-03-17 13:03 | Electrocardiograph Report ---
APPROVED REPORT Exam: Resting ECG HR:49 bpm ECG Measurements Heart Rate 49 AXES QRSd 80 QRS 0 QT 492 T28 QTc 444 <Conclusion> Junctional rhythm Abnormal ECG Electronically signed by : Remi Christianson, 03/17/2019 13:03:04
== END 2019-03-17 10:50 | disposition home or self-care (01) ==
LOC: ER 12:46 → 2ND 12:46
PROVIDERS: ADMIT Family Medicine; ATTEND Internal Medicine Adolescent Medicine
CPT/HCPCS: 36415; 71010; 71020; 71045; 71046; 80048; 80053; 81001; 83605; 84484; 85025; 93005; 96365; 96366; 99285; G0378

== ENCOUNTER → 2019-05-29 09:39 | Outpatient (CLI) | payer OTHER, MEDICARE, SELFPAY | PROVIDERS: PCP Internal Medicine Adolescent Medicine; Visit Provider Internal Medicine Adolescent Medicine | DX: R06.09 Other forms of dyspnea (principal) | CPT/HCPCS: 94060; 94618; 94726; 94729 ==

== ENCOUNTER → 2019-06-06 13:35 | Outpatient (CLI) | payer OTHER, MEDICARE, SELFPAY ==
--- NOTE | 2019-06-06 | CA_ITS ---
APPROVED REPORT EXAM: Comprehensive 2D, Doppler, and color-flow Echocardiogram Pool Table Mechanic: Talia Olivier RT(R) Ht: 5 ft 3 in Wt: 275lbs BSA: 2.21 BP: 140/80 mmHg Indications: COPD, ex smoker quit 5 years ago, edema, HTN, diabetes, SOB, DALAL, obesity, hyperlipidemia, family history of HD 2D Dimensions LVOT 2.11 cm (M/F) 1.5-2.5 M-Mode Dimensions RVDd 2.31 cm (0.9-2.6) LVDd 4.90 cm (3.5-5.7) LVDs 3.39 cm (3.5-5.7) IVSd 1.13 cm (0.6-1.1) PWd 0.85 cm (0.6-1.1) EF (Teich) 58.20% FS 30.80% EDV (Teich) 112.80 mL ESV (Teich) 47.10 mL LV Diastology E/A Ratio 0.89 Mitral Valve MV A Velocity 101.00 (40-130 cm/s) Left Ventricle Left atrium is mildly enlarged, left ventricle is normal size, mild concentric left ventricular hypertrophy, the estimated ejection fraction 55% with no regional wall motion abnormality, grade 1 diastolic dysfunction seen with tissue Doppler evidence of raise left atrial pressure. Right Ventricle Right atrium and right ventricular mildly enlarged with normal contractility. Aortic Valve Aortic valve is minimally thickened and fibrosed, there is no aortic stenosis or aortic insufficiency. Mitral Valve Mitral valve is grossly normal, there is mild mitral regurgitation. Tricuspid Valve Tricuspid valve is grossly normal, there is mild tricuspid regurgitation. Pulmonic Valve Pulmonic valve is poorly visualized. Great Vessels Aortic root is normal size. Pericardium No significant pericardial effusion noted. Conclusion 1. Mildly enlarged left atrium, normal left ventricular size, mild concentric left ventricular hypertrophy, visually estimated ejection fraction 55% with no regional wall motion abnormality, grade 1 diastolic dysfunction seen with tissue Doppler evidence of raise left atrial pressure. 2. Mildly enlarged right ventricle with normal contractility. 3. Mild mitral and tricuspid regurgitation. 4. No significant pericardial effusion noted. Electronically signed by : Geovani Blunt, 06/09/2019 17:27:18
== END ==
PROVIDERS: PCP Internal Medicine Adolescent Medicine; Visit Provider Internal Medicine Adolescent Medicine
DX: I51.89 Other ill-defined heart diseases (principal); R06.09 Other forms of dyspnea
CPT/HCPCS: 93306

== ENCOUNTER → 2020-04-06 16:03 | Outpatient (CLI) | payer OTHER, MEDICARE, SELFPAY ==
--- NOTE | 2020-04-06 16:28 | XR_ITS ---
PROCEDURE: XR CHEST 2V CLINICAL HISTORY: DYSPNEA UPON EFFORT, PANLOBULAR EMPHYSEMA COMPARISON: CT CHESTWO CT chest wo con from 09/12/2018 CR Chest from 09/12/2018 CR XR CHEST 2V from 03/16/2019 CR XR CHEST PORTABLE from 03/16/2019 FINDINGS: There is borderline cardiomegaly without failure. The lungs are clear without infiltrates, suspicious nodules, or pleural effusions. Minimal atelectatic or fibrotic change in the anterior clear space There are mild degenerative changes in the thoracic spine. IMPRESSION: No acute findings. Dictated by: Henry Garcia MD 04/06/2020 19:46 Henry Garcia MD in [place] 04/06/2020 19:46
[2020-04-06 16:31] LABS: Basophils # 0.1 K/mm3 (0-0.2); Basophils % 1.6 % (0.1-2.0); Eosinophils # 0.2 K/mm3 (0.0-0.4); Eosinophils % 2.3 % (0.1-12.0); Hematocrit 33.3 % (37.0-47.0); Hemoglobin 10.1 g/dL (12.2-16.2); Lymphocytes # 2.2 K/mm3 (0.7-4.5); Lymphocytes % 28.6 % (10-50); Mean Corpuscular HGB Conc 30.3 g/dL (31.8-35.4); Mean Corpuscular Hemoglobin 25.4 pg (27.0-31.2); Mean Corpuscular Volume 83.9 fl (81-99); Mean Platelet Volume 11.8 fl (7.4-10.4); Monocytes # 0.4 K/mm3 (0.1-1.0); Neutrophils # 4.8 K/mm3 (1.8-7.8); Neutrophils % 62.6 % (37.0-80.0); Platelet Count 191 K/mm3 (142-424); Red Blood Count 3.98 M/mm3 (4.20-5.40); Red Cell Distribution Width 16.1 % (11.5-17.5); White Blood Count 7.6 K/mm3 (4.8-10.8)
[2020-04-06 16:55] LABS: Chloride 105 mmol/L (98-107); Potassium 5.7 mmoL/L (3.5-5.1); Sodium 140 mmol/L (136-145)
[2020-04-06 16:58] LABS: Alanine Aminotransferase 47 U/L (12-78); Albumin Level 4.7 g/dl (3.5-5.0); Albumin/Globulin Ratio 1.5 (1.1-1.8); Alkaline Phosphatase 99 U/L (38-126); Anion Gap 14.7 mEq/L (5-15); Aspartate Amino Transferase 74 U/L (14-36); Bilirubin,Total 0.5 mg/dl (0.2-1.3); Blood Urea Nitrogen 14 mg/dl (7-17); Carbon Dioxide 26 mmol/L (22.0-30.0); Estimated Glomerular Filt Rate 42 ml/min (>60); GFR (African American) 50 ML/MIN (>60); Globulin 3.2 g/dL (1.3-3.2); Total Protein,Serum 7.9 g/dl (6.3-8.2)
[2020-04-06 16:59] LABS: Calcium 9.9 mg/dl (8.4-10.2); Glucose 90 mg/dl (74-100)
[2020-04-06 17:08] LABS: NT Pro Brain Natriuretic Pep. 556 pg/mL (0-125)
== END ==
PROVIDERS: Visit Provider Internal Medicine Adolescent Medicine
DX: R06.00 Dyspnea, unspecified (principal); J43.1 Panlobular emphysema
CPT/HCPCS: 36415; 71046; 80053; 83880; 85025; 85378

== ENCOUNTER → 2020-04-07 13:09 | Outpatient (CLI) | payer OTHER, MEDICARE, SELFPAY ==
--- NOTE | 2020-04-07 13:28 | CT_ITS ---
PROCEDURE: CT ANGIO CHEST CLINCIAL INDICATION: DYSPNEA COMPARISON: CT LDCTLCAS LDCT FOR LUNG CA SCREEN from 02/08/[address] chest wo con from 09/12/2018 TECHNIQUE: IV Contrast: 70ML Isovue 370 Axial images obtained with sagittal and coronal reformats. All CT scans at the facility use one or more dose reduction, viz: automated exposure control, ma/kV adjustment per patient size (including targeted exams where dose is matched to indication, i.e. head), or iterative reconstruction technique. FINDINGS: HEART AND MEDIASTINAL STRUCTURES: No evidence of pulmonary embolus or aortic aneurysm. No mediastinal or hilar mass or adenopathy. LUNGS AND PLEURAL SPACES: Centrilobular emphysema with COPD. There are faint interlobular hazy opacities which may be seen with smoking related lung disease. There is a 4 mm noncalcified nodule image 39 series 3 in the right upper lobe unchanged. Subpleural opacity is present in the right upper lobe posteriorly at 4 mm unchanged. 4 mm noncalcified nodule left lower lobe probably unchanged given difference in technique. BONY STRUCTURES: Multilevel thoracic spondylosis with sclerosis of the endplates not significantly changed UPPER ABDOMEN: Unremarkable. ADDITIONAL FINDINGS: No other significant abnormalities. IMPRESSION: 1. No evidence of acute pulmonary embolus. 2. COPD with centrilobular emphysema. There are scattered small pulmonary nodular opacities which are stable. 3. There is a mild diffuse interlobular haziness with a mosaic attenuation of the lungs which may be seen with smoking related lung disease/bronchitis. Dictated by: Henry Garcia MD 04/07/2020 15:48 Henry Garcia MD in [place] 04/07/2020 15:48
== END ==
PROVIDERS: PCP Internal Medicine Adolescent Medicine; Visit Provider Internal Medicine Adolescent Medicine
DX: R06.09 Other forms of dyspnea (principal)
CPT/HCPCS: 71275; Q9967

== ENCOUNTER → 2020-08-31 09:53 | Outpatient (CLI) | payer OTHER, MEDICARE, SELFPAY ==
[2020-08-31 14:01] LABS: Basophils # 0.1 K/mm3 (0-0.2); Basophils % 1.3 % (0.1-2.0); Eosinophils # 0.3 K/mm3 (0.0-0.4); Hematocrit 29.2 % (37.0-47.0); Hemoglobin 9.3 g/dL (12.2-16.2); Lymphocytes # 2.1 K/mm3 (0.7-4.5); Lymphocytes % 26.3 % (10-50); Mean Corpuscular HGB Conc 31.7 g/dL (31.8-35.4); Mean Corpuscular Hemoglobin 25.9 pg (27.0-31.2); Mean Corpuscular Volume 81.8 fl (81-99); Mean Platelet Volume 9.5 fl (7.4-10.4); Monocytes # 0.3 K/mm3 (0.1-1.0); Neutrophils % 64.4 % (37.0-80.0); Platelet Count 217 K/mm3 (142-424); Red Blood Count 3.57 M/mm3 (4.20-5.40); Red Cell Distribution Width 16.5 % (11.5-17.5); White Blood Count 7.8 K/mm3 (4.8-10.8)
[2020-08-31 14:15] LABS: Potassium 5.4 mmoL/L (3.5-5.1)
[2020-08-31 14:17] LABS: Alanine Aminotransferase 27 U/L (12-78); Aspartate Amino Transferase 38 U/L (14-36); Blood Urea Nitrogen 28 mg/dl (7-17); Estimated Glomerular Filt Rate 35 ml/min (>60); GFR (African American) 43 ML/MIN (>60)
[2020-08-31 14:18] LABS: Albumin Level 4.1 g/dl (3.5-5.0); Albumin/Globulin Ratio 1.3 (1.1-1.8); Alkaline Phosphatase 96 U/L (38-126); Bilirubin,Total 0.4 mg/dl (0.2-1.3); Calcium 8.8 mg/dl (8.4-10.2); Chol/HDL Ratio 4.5 (1-3.5); Cholesterol 104 mg/dl (140-200); Globulin 3.1 g/dL (1.3-3.2); Glucose 96 mg/dl (74-100); HDL Cholesterol 23 mg/dl (40-60); Total Protein,Serum 7.2 g/dl (6.3-8.2); Triglycerides 231 mg/dl (30-150); VLDL Cholesterol 46 mg/dL (0-40)
[2020-08-31 15:01] LABS: Hemoglobin A1C 5.9 % (4.0-6.0)
[2020-08-31 16:08] LABS: Anion Gap 18.4 mEq/L (5-15)
[2020-08-31 16:09] LABS: Carbon Dioxide 26 mmol/L (22.0-30.0); Chloride 102 mmol/L (98-107); Sodium 141 mmol/L (136-145)
[2020-08-31 19:13] LABS: Vitamin B12 545 pg/mL (239-931)
[2020-09-01 14:47] LABS: Iron 51 ug/dL (37-170)
== END ==
PROVIDERS: Visit Provider Internal Medicine Adolescent Medicine
DX: E11.9 Type 2 diabetes mellitus without complications (principal); E78.5 Hyperlipidemia, unspecified; D64.9 Anemia, unspecified; G60.9 Hereditary and idiopathic neuropathy, unspecified; Z79.84 Long term (current) use of oral hypoglycemic drugs
CPT/HCPCS: 36415; 80053; 80061; 82607; 82728; 83036; 83540; 85025

== ENCOUNTER → 2020-11-17 16:09 | Outpatient (CLI) | payer OTHER, MEDICARE, SELFPAY | PROVIDERS: Visit Provider Internal Medicine Gastroenterology | DX: Z01.812 Encounter for preprocedural laboratory examination (principal); Z20.822 Contact with and (suspected) exposure to COVID-19; Z13.810 Encounter for screening for upper gastrointestinal disorder; Z12.11 Encounter for screening for malignant neoplasm of colon | CPT/HCPCS: U0003 ==

== ENCOUNTER 2020-11-19 08:05 | Day surgery (SDC) | payer OTHER, MEDICARE, SELFPAY ==
[2020-11-17 13:27] VITALS: BMI 47.8
[2020-11-19] VITALS (8 sets, daily range): BP systolic 127–163; BP diastolic 56–97; PULSE 55–76; RESP 18; TEMP 36.4; O2SAT 93–98
[2020-11-19 09:00] LABS: POC Glucose,Bedside 114 (70-110)
--- NOTE | 2020-11-19 09:29 | P.PN_ITS ---
[facility] Anesthesia Checklist - Patient Identification Patient Identification: Arm Band - Structural Data Admitted From: Home Planned Operative Procedure/s: EGD/Colonoscopy Consent for Planned Operative Procedure(s) Verified: Yes - NPO Status Verified Time NPO: 00:00 - Airway Assessment C-Spine Mobility Assessed: Yes TMJ Mobility Assessed: Yes Dentition: Poor Dentition - Neurological Assessment Level of Consciousness: Awake Hx Seizures: No Numbness or tingling in extremities: No - Anesthesia Plan Anesthesia Risk discussed: Yes Anesthesia Plan: Verified ASA Class: III Anesthesia Type: MAC [facility] History I have reviewed the patient's past medical history: Yes Medical History: Reports:: Coronary Artery Disease, Depression, Diabetes Mellitus Type 1, Diabetes Mellitus Type 2, Hyperlipidemia, Hypertension Denies:: Cancer, Internal Pacemaker, MRSA, Seizures *Have you ever received a pneumonia vaccine?: No *Have you received a flu vaccine this season?: No Other Medical History: Reports: Arthritis, Hypothyroidism Anesthesia experience/problems:: Nausea Other Surgeries: Yes: Colonoscopy, EGD, Tubal Ligation, Other. No: Pacemaker Amputation: No Fractures: Yes - *Social History Last grade of school completed: Advanced degree Smoking Status: Former smoker Tobacco Type: cigarettes # Packs/Day (cigarettes): 1 Alcohol Intake: never Substance Use Type: denies use *Occupational Status:: disabled Housing: house Household Members: spouse, family *Travel in the last 8 weeks: None - Psychiatric History Pschychiatric History:: Reports:: Depression Family Hx:: Cancer, Diabetes, Heart Attack, Hyperlipidemia, Hypertension
--- NOTE | 2020-11-19 09:45 | HMH.PROC ---
[facility] Procedure Note Procedure Note:: Upper Endoscopy Procedure Report: Esophagogastroduodenoscopy with cold biopsies Endoscopost: Kin Pappas II, MD Referring Physician: Red Lee M.D. Date of Procedure: November 19, 2020 Equipment: Olympus GIF 190 standard upper endoscope Sedation: MAC sedation Indications: Mrs. Rebolledo is a 60-year-old female with iron deficiency anemia. She recently had a hemoglobin around 9. The patient reports no melena, hematochezia or rectal bleeding. She reports no hematemesis. She has had no vaginal bleeding. She reports no anticoagulation. She does take ibuprofen 200 mg 2 tablets daily. She does have chronic GERD for which she takes omeprazole 40 mg daily. She reports no abdominal pain, indigestion or dyspepsia. She has no dysphagia. Procedure: Prior to the procedure, a history and physical exam was performed, and patient's medications and allergies were reviewed. The risks, benefits and alternatives of the sedation and procedure were discussed with the patient. All questions were answered and informed consent was obtained. The patient was brought to the procedure room. Patient identification and proposed procedure were verified by the physician and the nurse. The patient was placed in a left lateral decubitus position and the scope was passed under direct vision. Throughout the procedure, the patient's blood pressure, pulse, and oxygen saturations were monitored continuously. The upper GI endoscopy was accomplished without difficulty. The patient tolerated the procedure well. Findings: The scope was passed directly into the upper esophagus and advanced to the third portion of the duodenum. The post bulbar duodenum and duodenal bulb were normal with normal mucosa and conniventes. Cold biopsies were taken from the post bulbar duodenum to rule out celiac disease. The scope was withdrawn through a normal duodenal bulb and pylorus into the stomach. There was some mild chronic gastritis and biopsies were taken along the lesser curvature to rule out H. pylori. There was a single gastric polyp with some surface erosion that was removed via cold biopsy. Upon retroflexion there was no hiatal hernia. The scope was then withdrawn into the esophagus. There was no evidence of reflux esophagitis or Corona's. The remainder of the esophageal mucosa was normal. Impression: 1. Chronic gastritis 2. Gastric polyp with surface erosion Plan: I will follow-up the biopsies. I am not convinced that the upper digestive tract findings explain the patient's iron deficiency. I do feel that the daily ibuprofen/NSAID most likely is playing some role with her iron deficiency. I will proceed with diagnostic colonoscopy.
--- NOTE | 2020-11-19 10:10 | P.PCN_ITS ---
[facility] Procedure Note Procedure Note:: Colonoscopy Procedure Report: Colonoscopy with cold snare polypectomy Endoscopist: Kin Pappas II, MD Referring physician: Red Lee M.D. Date of Procedure: November 19, 2020 Equipment: Olympus 190 variable stiffness pediatric colonoscope Sedation: MAC sedation Indication: Mrs. Rebolledo is a 60-year-old female with iron deficiency anemia. Her recent hemoglobin was 9.3 with hematocrit 29.2. This was in August 2020. Her hemoglobin and hematocrit were 9.9 and 31.7 in March 2019. The patient reports no bright red rectal bleeding or hematochezia. She reports no abdominal pain, weight loss, change in her bowel habits or family history of colon cancer. She did have a colonoscopy in April 2015 and had adenomatous polyps removed. Procedure: Prior to the procedure, a history and physical exam was performed, and patient's medications and allergies were reviewed. The risks, benefits and alternatives of the sedation and procedure were discussed with the patient. All questions were answered and informed consent was obtained. The patient was brought to the procedure room. Patient identification and proposed procedure were verified by the physician and the nurse. The patient was placed in a left lateral decubitus position and the scope was passed under direct vision. Throughout the procedure, the patient's blood pressure, pulse, and oxygen saturations were monitored continuously. The colonoscopy was accomplished without difficulty. The patient tolerated the procedure well. Findings: On digital rectal examination there was normal rectal tone. There were no external hemorrhoids. The colonoscope was introduced through the anal canal to the rectum and advanced to the cecum. The ileocecal valve and appendiceal orifice were identified. The scope was advanced a short distance into the ileum which appeared grossly normal. The scope was then withdrawn into the colon. There were a total of 3 polyps (ascending x2 (4 and 6 mm) and rectosigmoid x1 (3 mm)) which were all removed via cold snare polypectomy. The remaining cecum, ascending, transverse, descending, sigmoid and rectum were grossly normal. There were no mucosal abnormalities identified. Upon retroflexion within the rectum there were grade 1 internal hemorrhoids.The preparation was excellent throughout with [place] Preparation Score of 9. The cecal time was 12 minutes. Impression: 1. Diminutive colonic polyps x3 Plan: There was again no source for the patient's anemia. The patient's anemia is chronic and I would consider hematology consultation/evaluation. I would consider reticulocyte count and iron, B12 and folate studies. I do not have any recent creatinine. I will follow up the polyp histology and recommend repeat screening/surveillance colonoscopy again in 5 to 7 years.
[2020-11-19 12:26] LABS: Reticulocyte % (Auto) 3.2 % (0.9-3.2)
[2020-11-19 12:27] LABS: Alanine Aminotransferase 40 U/L (12-78); Albumin Level 4.4 g/dl (3.5-5.0); Albumin/Globulin Ratio 1.3 (1.1-1.8); Alkaline Phosphatase 91 U/L (38-126); Anion Gap 18.8 mEq/L (5-15); Aspartate Amino Transferase 53 U/L (14-36); Bilirubin,Total 0.3 mg/dl (0.2-1.3); Blood Urea Nitrogen 20 mg/dl (7-17); Calcium 9.3 mg/dl (8.4-10.2); Carbon Dioxide 26 mmol/L (22.0-30.0); Chloride 101 mmol/L (98-107); Creatinine Clearance Estimated 34 mL/min (50-200); Estimated Glomerular Filt Rate 38 ml/min (>60); GFR (African American) 46 ML/MIN (>60); Globulin 3.3 g/dL (1.3-3.2); Glucose 144 mg/dl (74-100); Potassium 4.8 mmoL/L (3.5-5.1); Sodium 141 mmol/L (136-145); Total Protein,Serum 7.7 g/dl (6.3-8.2)
[2020-11-19 12:33] LABS: Iron 45 ug/dL (37-170)
[2020-11-19 12:38] LABS: Total Iron Binding Capacity 481 ug/dL (265-497)
[2020-11-19 13:07] LABS: Ferritin 36.2 ng/ml (11.1-264)
[2020-11-19 13:34] LABS: Vitamin B12 674 pg/mL (239-931)
[2020-11-19 13:36] LABS: Folate 5.08 ng/mL
== END 2020-11-19 11:50 | disposition home or self-care (01) ==
LOC: OUTP 08:11
PROVIDERS: PCP Internal Medicine Adolescent Medicine; Visit Provider Internal Medicine Gastroenterology
PROC: 0DJ08ZZ Inspection of Upper Intestinal Tract, Via Natural or Artificial Opening Endoscopic (ICD-10-PCS; CPT 43235; principal; 2020-11-19 09:30)
DX: K29.50 Unspecified chronic gastritis without bleeding (principal); K31.7 Polyp of stomach and duodenum; K63.5 Polyp of colon; I25.10 Atherosclerotic heart disease of native coronary artery without angina pectoris; F32.9 Major depressive disorder, single episode, unspecified; E10.9 Type 1 diabetes mellitus without complications; E11.9 Type 2 diabetes mellitus without complications; E78.5 Hyperlipidemia, unspecified; I10 Essential (primary) hypertension; E03.9 Hypothyroidism, unspecified; M19.90 Unspecified osteoarthritis, unspecified site; Z87.891 Personal history of nicotine dependence
CPT/HCPCS: 43239; 45385; 80053; 82607; 82728; 82746; 82962; 83540; 83550; 85044

== ENCOUNTER → 2021-01-25 08:25 | Outpatient (CLI) | payer OTHER, MEDICARE, SELFPAY ==
[2021-01-26 11:55] LABS: Basophils # 0.1 K/mm3 (0-0.2); Basophils % 0.6 % (0.1-2.0); Eosinophils # 0.2 K/mm3 (0.0-0.4); Eosinophils % 1.4 % (0.1-12.0); Hematocrit 36.6 % (37.0-47.0); Lymphocytes # 4.6 K/mm3 (0.7-4.5); Lymphocytes % 30.7 % (10-50); Mean Corpuscular HGB Conc 29.9 g/dL (31.8-35.4); Mean Corpuscular Hemoglobin 26.1 pg (27.0-31.2); Mean Corpuscular Volume 87.1 fl (81-99); Mean Platelet Volume 10.7 fl (7.4-10.4); Monocytes # 0.7 K/mm3 (0.1-1.0); Monocytes % 4.4 % (1.7-9.3); Neutrophils # 9.4 K/mm3 (1.8-7.8); Neutrophils % 62.9 % (37.0-80.0); Platelet Count 335 K/mm3 (142-424); Red Cell Distribution Width 15.1 % (11.5-17.5)
[2021-01-26 12:00] LABS: MANUAL DIFFERENTIAL MANUAL DIFFERENTIAL (MANUAL DIFF)
[2021-01-26 12:29] LABS: Chloride 105 mmol/L (98-107); Sodium 140 mmol/L (136-145)
[2021-01-26 12:30] LABS: Potassium 5.2 mmoL/L (3.5-5.1)
[2021-01-26 12:32] LABS: Alanine Aminotransferase 36 U/L (12-78); Albumin Level 3.9 g/dl (3.5-5.0); Albumin/Globulin Ratio 1.5 (1.1-1.8); Alkaline Phosphatase 71 U/L (38-126); Anion Gap 16.2 mEq/L (5-15); Aspartate Amino Transferase 45 U/L (14-36); Bilirubin,Total 0.2 mg/dl (0.2-1.3); Blood Urea Nitrogen 50 mg/dl (7-17); Carbon Dioxide 24 mmol/L (22.0-30.0); Cholesterol 123 mg/dl (140-200); Estimated Glomerular Filt Rate 33 ml/min (>60); GFR (African American) 40 ML/MIN (>60); Globulin 2.6 g/dL (1.3-3.2); Total Protein,Serum 6.5 g/dl (6.3-8.2); Triglycerides 255 mg/dl (30-150); VLDL Cholesterol 51 mg/dL (0-40)
[2021-01-26 12:33] LABS: Chol/HDL Ratio 3.4 (1-3.5); Glucose 87 mg/dl (74-100); HDL Cholesterol 36 mg/dl (40-60)
[2021-01-26 12:44] LABS: Direct LDL Cholesterol 46.71 mg/dL (100-129)
[2021-01-26 12:55] LABS: Eosinophils % 2 % (0-3); Hypochromasia 2+; Lymphocytes % 28 % (10-50); Monocytes % 3 % (2-9); Neutrophils % 67 % (42-76); Total Cells Counted 100
[2021-01-26 12:56] LABS: Platelet Estimate Normal
[2021-01-26 13:02] LABS: Thyroid Stimulating Hormone 2.34 uIU/mL (0.465-4.68)
[2021-01-26 22:56] LABS: Vitamin B12 443 pg/mL (239-931)
[2021-01-26 23:23] LABS: Hemoglobin A1C 6.3 % (4.0-6.0)
== END ==
PROVIDERS: Visit Provider Internal Medicine Adolescent Medicine
DX: E11.9 Type 2 diabetes mellitus without complications (principal); E78.5 Hyperlipidemia, unspecified; G60.9 Hereditary and idiopathic neuropathy, unspecified
CPT/HCPCS: 80053; 80061; 82306; 82607; 83036; 84443; 85007; 85025

== ENCOUNTER → 2021-02-22 18:52 | Outpatient (CLI) | payer OTHER, MEDICARE, SELFPAY | PROVIDERS: Visit Provider Internal Medicine Adolescent Medicine | DX: R30.0 Dysuria (principal); B96.4 Proteus (mirabilis) (morganii) as the cause of diseases classified elsewhere | CPT/HCPCS: 87086; 87088; 87186 ==

== ENCOUNTER → 2021-04-05 17:19 | Outpatient (CLI) | payer MEDICARE, SELFPAY ==
--- NOTE | 2021-04-05 17:38 | XR_ITS ---
PROCEDURE INFORMATION: Exam: XR Chest Exam date and time: 04/05/2021 5:38 PM Age: 61 years old Clinical indication: Cough and shortness of breath; Patient HX: SOA TECHNIQUE: Imaging protocol: XR of the chest. Views: 2 views. COMPARISON: CR XR CHEST 2V 04/06/2020 4:33 PM FINDINGS: Lungs: Unremarkable. No consolidation. Pleural spaces: Unremarkable. No pleural effusion. No pneumothorax. Heart/Mediastinum: Unremarkable. No cardiomegaly. Bones/joints: Unremarkable. IMPRESSION: No acute findings.
[2021-04-05 17:49] LABS: Basophils # 0.1 K/mm3 (0-0.2); Basophils % 1.4 % (0.1-2.0); Eosinophils # 0.2 K/mm3 (0.0-0.4); Eosinophils % 2.2 % (0.1-12.0); Hematocrit 35.4 % (37.0-47.0); Hemoglobin 10.6 g/dL (12.2-16.2); Lymphocytes % 30.5 % (10-50); Mean Corpuscular HGB Conc 29.9 g/dL (31.8-35.4); Mean Corpuscular Hemoglobin 25.6 pg (27.0-31.2); Mean Corpuscular Volume 85.6 fl (81-99); Mean Platelet Volume 11.2 fl (7.4-10.4); Monocytes # 0.3 K/mm3 (0.1-1.0); Monocytes % 4.7 % (1.7-9.3); Neutrophils # 4.1 K/mm3 (1.8-7.8); Neutrophils % 61.3 % (37.0-80.0); Platelet Count 183 K/mm3 (142-424); Red Blood Count 4.14 M/mm3 (4.20-5.40); Red Cell Distribution Width 15.7 % (11.5-17.5); White Blood Count 6.7 K/mm3 (4.8-10.8)
[2021-04-05 18:42] LABS: Alanine Aminotransferase 36 U/L (12-78); Albumin Level 4.6 g/dl (3.5-5.0); Albumin/Globulin Ratio 1.8 (1.1-1.8); Alkaline Phosphatase 99 U/L (38-126); Anion Gap 19.2 mEq/L (5-15); Aspartate Amino Transferase 38 U/L (14-36); Bilirubin,Total 0.4 mg/dl (0.2-1.3); Blood Urea Nitrogen 25 mg/dl (7-17); Calcium 9.3 mg/dl (8.4-10.2); Carbon Dioxide 23 mmol/L (22.0-30.0); Chloride 104 mmol/L (98-107); Estimated Glomerular Filt Rate 33 ml/min (>60); GFR (African American) 39 ML/MIN (>60); Globulin 2.6 g/dL (1.3-3.2); Glucose 150 mg/dl (74-100); Potassium 5.2 mmoL/L (3.5-5.1); Sodium 141 mmol/L (136-145); Total Protein,Serum 7.2 g/dl (6.3-8.2)
== END ==
PROVIDERS: Visit Provider Internal Medicine Adolescent Medicine
DX: U07.1 COVID-19 (principal); R06.02 Shortness of breath; R05.9 Cough, unspecified
CPT/HCPCS: 36415; 71046; 80053; 85025; C9803; U0003; U0005

== ENCOUNTER 2021-04-12 15:12 | Outpatient (CLI) | payer MEDICARE, SELFPAY ==
[2021-04-12 15:20] VITALS: BMI 44.2
[2021-04-12 15:40] VITALS: BP 96/68; PULSE 58; RESP 20; O2SAT 95
[2021-04-12 15:49] LABS: Chloride 101 mmol/L (98-107)
[2021-04-12 15:50] LABS: Sodium 132 mmol/L (136-145)
[2021-04-12 15:53] LABS: Blood Urea Nitrogen 55 mg/dl (7-17); Calcium 8.6 mg/dl (8.4-10.2); Carbon Dioxide 21 mmol/L (22.0-30.0); Creatinine Clearance Estimated 20 mL/min (50-200); Estimated Glomerular Filt Rate 20 ml/min (>60); GFR (African American) 25 ML/MIN (>60); Glucose 128 mg/dl (74-100)
[2021-04-12 17:40] VITALS: BP 105/72; PULSE 61; RESP 20; O2SAT 96
== END 2021-04-12 17:40 | disposition home or self-care (01) ==
LOC: INF 15:14
PROVIDERS: PCP Internal Medicine Adolescent Medicine; Visit Provider Internal Medicine Adolescent Medicine
DX: U07.1 COVID-19 (principal)
CPT/HCPCS: 80048; 96360; 96361; 96375; J2405

== ENCOUNTER 2021-04-13 11:15 | Outpatient (CLI) | payer MEDICARE, SELFPAY ==
[2021-04-13 12:10] VITALS: BP 120/61; PULSE 94; RESP 20; O2SAT 94
[2021-04-13 13:42] VITALS: BMI 44.2
[2021-04-13 14:00] LABS: Chloride 111 mmol/L (98-107); Sodium 138 mmol/L (136-145)
[2021-04-13 14:01] LABS: Potassium 4.8 mmoL/L (3.5-5.1)
[2021-04-13 14:03] LABS: Blood Urea Nitrogen 33 mg/dl (7-17); Creatinine Clearance Estimated 37 mL/min (50-200); Estimated Glomerular Filt Rate 41 ml/min (>60); GFR (African American) 50 ML/MIN (>60)
[2021-04-13 14:04] LABS: Calcium 7.8 mg/dl (8.4-10.2); Carbon Dioxide 21 mmol/L (22.0-30.0); Glucose 123 mg/dl (74-100)
[2021-04-13 14:06] LABS: Anion Gap 10.8 mEq/L (5-15)
[2021-04-13 14:25] VITALS: BP 148/65; PULSE 88; RESP 20
== END 2021-04-13 14:25 | disposition home or self-care (01) ==
LOC: INF 11:17
PROVIDERS: PCP Internal Medicine Adolescent Medicine; Visit Provider Internal Medicine Adolescent Medicine
DX: U07.1 COVID-19 (principal)
CPT/HCPCS: 80048; 96360

== ENCOUNTER → 2021-09-09 07:27 | Outpatient (CLI) | payer MEDICARE, SELFPAY ==
[2021-09-08 16:58] LABS: Chloride 105 mmol/L (98-107); Potassium 5.1 mmoL/L (3.5-5.1); Sodium 139 mmol/L (136-145)
[2021-09-08 17:01] LABS: Alanine Aminotransferase 38 U/L (12-78); Albumin Level 4.4 g/dl (3.5-5.0); Albumin/Globulin Ratio 1.5 (1.1-1.8); Alkaline Phosphatase 101 U/L (38-126); Anion Gap 16.1 mEq/L (5-15); Aspartate Amino Transferase 50 U/L (14-36); Bilirubin,Total 0.4 mg/dl (0.2-1.3); Blood Urea Nitrogen 26 mg/dl (7-17); Calcium 9.6 mg/dl (8.4-10.2); Carbon Dioxide 23 mmol/L (22.0-30.0); Cholesterol 120 mg/dl (140-200); Estimated Glomerular Filt Rate 41 ml/min (>60); GFR (African American) 50 ML/MIN (>60); Globulin 2.9 g/dL (1.3-3.2); Glucose 147 mg/dl (74-100); HDL Cholesterol 24 mg/dl (40-60); Total Protein,Serum 7.3 g/dl (6.3-8.2); Triglycerides 305 mg/dl (30-150); VLDL Cholesterol 61 mg/dL (0-40)
[2021-09-08 17:03] LABS: Basophils # 0.1 K/mm3 (0-0.2); Basophils % 1.5 % (0.1-2.0); Eosinophils # 0.4 K/mm3 (0.0-0.4); Eosinophils % 4.6 % (0.1-12.0); Hemoglobin 9.7 g/dL (12.2-16.2); Lymphocytes # 2.3 K/mm3 (0.7-4.5); Lymphocytes % 25.7 % (10-50); Mean Corpuscular HGB Conc 32.3 g/dL (31.8-35.4); Mean Corpuscular Volume 80.6 fl (81-99); Mean Platelet Volume 10.4 fl (7.4-10.4); Monocytes # 0.6 K/mm3 (0.1-1.0); Monocytes % 6.2 % (1.7-9.3); Neutrophils # 5.5 K/mm3 (1.8-7.8); Neutrophils % 62.1 % (37.0-80.0); Platelet Count 210 K/mm3 (142-424); Red Blood Count 3.72 M/mm3 (4.20-5.40); Red Cell Distribution Width 15.2 % (11.5-17.5); White Blood Count 8.8 K/mm3 (4.8-10.8)
[2021-09-08 17:13] LABS: Direct LDL Cholesterol 38.56 mg/dL (100-129)
[2021-09-08 17:43] LABS: Hemoglobin A1C 6.6 % (4.0-6.0)
== END ==
PROVIDERS: PCP Internal Medicine Adolescent Medicine; Visit Provider Internal Medicine Adolescent Medicine
DX: E11.69 Type 2 diabetes mellitus with other specified complication (principal); E66.9 Obesity, unspecified; K52.9 Noninfective gastroenteritis and colitis, unspecified; Z79.84 Long term (current) use of oral hypoglycemic drugs; Z68.42 Body mass index [BMI] 45.0-49.9, adult
CPT/HCPCS: 80053; 80061; 83036; 85025

== ENCOUNTER → 2021-12-08 14:39 | Outpatient (CLI) | payer MEDICARE, SELFPAY ==
[2021-12-08 19:12] LABS: Basophils # 0.2 K/mm3 (0-0.2); Basophils % 1.6 % (0.1-2.0); Eosinophils # 0.3 K/mm3 (0.0-0.4); Eosinophils % 2.7 % (0.1-12.0); Hematocrit 34.6 % (37.0-47.0); Hemoglobin 10.8 g/dL (12.2-16.2); Lymphocytes # 3.4 K/mm3 (0.7-4.5); Lymphocytes % 31.6 % (10-50); Mean Corpuscular HGB Conc 31.2 g/dL (31.8-35.4); Mean Corpuscular Hemoglobin 26.3 pg (27.0-31.2); Mean Corpuscular Volume 84.4 fl (81-99); Mean Platelet Volume 10.6 fl (7.4-10.4); Monocytes # 0.7 K/mm3 (0.1-1.0); Monocytes % 6.3 % (1.7-9.3); Neutrophils # 6.3 K/mm3 (1.8-7.8); Neutrophils % 57.8 % (37.0-80.0); Platelet Count 243 K/mm3 (142-424); White Blood Count 10.9 K/mm3 (4.8-10.8)
[2021-12-08 20:22] LABS: Thyroid Stimulating Hormone 2.72 uIU/mL (0.465-4.68)
== END ==
PROVIDERS: PCP Internal Medicine Adolescent Medicine; Visit Provider Internal Medicine Adolescent Medicine
DX: E11.69 Type 2 diabetes mellitus with other specified complication (principal); E66.9 Obesity, unspecified; D64.9 Anemia, unspecified; Z79.4 Long term (current) use of insulin; Z68.42 Body mass index [BMI] 45.0-49.9, adult
CPT/HCPCS: 83036; 84443; 85025

== ENCOUNTER → 2021-12-15 14:15 | Outpatient (CLI) | payer MEDICARE, SELFPAY ==
--- NOTE | 2021-12-15 14:15 | CT_ITS ---
FINAL REPORT CLINICAL HISTORY: lung cancer screening, hx smoker, quit 7 years ago, smoker 2 ppd for 45 years COMPARISON: CTA chest dated April 07, 2020 FINDINGS: Low-Dose Chest CT CTDI vol (mGy): 2.90 DLP (mGy-cm): 89.86 Axial images were obtained from the lung apex to the mid abdomen by computed tomography. Low-dose protocol was utilized. FINDINGS: CHEST: There is no axillary adenopathy. There is no hilar or mediastinal adenopathy. The heart is proper size. There is no pericardial or pleural effusion. Limited images of the upper abdomen are unremarkable. Lung window images demonstrate a calcified granuloma in the left lower lobe. There are several small pulmonary nodules again seen. These are not as well seen as on the prior exam but are probably stable. A stable 3 mm nodule is seen in the right upper lobe on image 24. A 2nd stable 3 mm nodule is seen near the major fissure on image 28. There are several other less than 5 mm pulmonary nodules bilaterally that are also stable. There is no definite new mass or nodule identified. IMPRESSION: Lung RADS category 2. Recommend 12 month follow-up low-dose chest CT. Reviewed, Interpreted and Dictated by Willian Hidalgo III, MD Transcribed by Kirill Griffith Authenticated and [facility]
== END ==
PROVIDERS: PCP Internal Medicine Adolescent Medicine; Visit Provider Internal Medicine Adolescent Medicine
DX: Z87.891 Personal history of nicotine dependence (principal); Z12.2 Encounter for screening for malignant neoplasm of respiratory organs
CPT/HCPCS: 71271

== ENCOUNTER → 2022-05-11 13:11 | Outpatient (CLI) | payer MEDICARE, SELFPAY ==
--- NOTE | 2022-05-11 13:14 | MM_ITS ---
PROCEDURE INFORMATION: Exam: Bilateral Screening 3D Mammography Exam date and time: 05/11/2022 1:12 PM Age: 62 years old Clinical indication: Screening examination TECHNIQUE: Imaging protocol: Bilateral Screening tomosynthesis and 2D mammography including computer-aided detection (CAD) when performed. COMPARISON: DMSB DIG MAMM-SCREEN BETZY 02/08/2016 2:14 PM FINDINGS: MAMMOGRAPHY: Breast composition: The breasts are almost entirely fatty. Mass: None. Architectural distortion: None. Calcifications: No suspicious calcifications. Asymmetric density: None. Skin thickening: None. Axillary adenopathy: None. IMPRESSION: No mammographic evidence of malignancy. Annual screening is recommended unless otherwise clinically indicated. ASSESSMENT: BI-RADS Category 1: Negative
== END ==
PROVIDERS: PCP Internal Medicine Adolescent Medicine; Visit Provider Internal Medicine Adolescent Medicine
DX: Z12.31 Encounter for screening mammogram for malignant neoplasm of breast (principal)
CPT/HCPCS: 77063; 77067

== ENCOUNTER → 2023-02-16 08:25 | Outpatient (CLI) | payer MEDICARE, SELFPAY | PROVIDERS: PCP Family Medicine; Visit Provider Family Medicine | DX: R05.9 Cough, unspecified (principal); U07.1 COVID-19 | CPT/HCPCS: 87635 ==

== ENCOUNTER → 2023-03-01 08:32 | Outpatient (CLI) | payer MEDICARE, SELFPAY ==
[2023-03-01 17:08] LABS: Basophils # 0.1 K/mm3 (0-0.2); Basophils % 1.3 % (0.1-2.0); Eosinophils # 0.4 K/mm3 (0.0-0.4); Eosinophils % 4.6 % (0.1-12.0); Hematocrit 32.7 % (37.0-47.0); Hemoglobin 10.5 g/dL (12.2-16.2); Lymphocytes # 2.2 K/mm3 (0.7-4.5); Lymphocytes % 25.5 % (10-50); Mean Corpuscular HGB Conc 32.1 g/dL (31.8-35.4); Mean Corpuscular Hemoglobin 26.1 pg (27.0-31.2); Mean Corpuscular Volume 81.1 fl (81-99); Mean Platelet Volume 9.7 fl (7.4-10.4); Monocytes # 0.4 K/mm3 (0.1-1.0); Neutrophils # 5.5 K/mm3 (1.8-7.8); Neutrophils % 63.6 % (37.0-80.0); Platelet Count 210 K/mm3 (142-424); Red Blood Count 4.04 M/mm3 (4.20-5.40); Red Cell Distribution Width 16.5 % (11.5-17.5); White Blood Count 8.7 K/mm3 (4.8-10.8)
[2023-03-01 17:12] LABS: Alanine Aminotransferase 34 U/L (12-78); Albumin Level 4.2 g/dl (3.5-5.0); Albumin/Globulin Ratio 1.4 (1.1-1.8); Alkaline Phosphatase 96 U/L (38-126); Anion Gap 15.9 mEq/L (5-15); Aspartate Amino Transferase 44 U/L (14-36); Bilirubin,Total 0.4 mg/dl (0.2-1.3); Blood Urea Nitrogen 19 mg/dl (7-17); Calcium 8.6 mg/dl (8.4-10.2); Carbon Dioxide 20 mmol/L (22.0-30.0); Chloride 108 mmol/L (98-107); Chol/HDL Ratio 4.9 (1-3.5); Cholesterol 118 mg/dl (140-200); Estimated Glomerular Filt Rate 41 ml/min (>60); GFR (African American) 50 ML/MIN (>60); Globulin 3.1 g/dL (1.3-3.2); Glucose 114 mg/dl (74-100); HDL Cholesterol 24 mg/dl (40-60); Potassium 4.9 mmoL/L (3.5-5.1); Sodium 139 mmol/L (136-145); Total Protein,Serum 7.3 g/dl (6.3-8.2); Triglycerides 283 mg/dl (30-150); VLDL Cholesterol 57 mg/dL (0-40)
[2023-03-01 17:24] LABS: Direct LDL Cholesterol 53.03 mg/dL (100-129)
[2023-03-01 17:54] LABS: Hemoglobin A1C 6.2 % (4.0-6.0)
[2023-03-01 18:30] LABS: Iron 66 ug/dL (37-170)
[2023-03-01 18:39] LABS: Total Iron Binding Capacity 433 ug/dL (265-497)
== END ==
PROVIDERS: PCP Family Medicine; Visit Provider Family Medicine
DX: Z00.00 Encounter for general adult medical examination without abnormal findings (principal); R53.83 Other fatigue; I10 Essential (primary) hypertension; E11.69 Type 2 diabetes mellitus with other specified complication; D64.9 Anemia, unspecified; E66.9 Obesity, unspecified; Z79.84 Long term (current) use of oral hypoglycemic drugs; Z87.891 Personal history of nicotine dependence; Z68.42 Body mass index [BMI] 45.0-49.9, adult
CPT/HCPCS: 80053; 80061; 83036; 83540; 83550; 84443; 85025

== ENCOUNTER 2023-06-05 20:35 | Outpatient (CLI) | payer MEDICARE, SELFPAY ==
[2023-06-05 20:40] LABS: Amphetamine/Metha Screen,Urine Negative ng/ml (<1000)
[2023-06-05 20:41] LABS: Barbiturates Screen,Urine Negative ng/ml (<200); Benzodiazepines Screen,Urine Positive ng/ml (<200)
[2023-06-05 20:42] LABS: Cannabinoid Screen,Urine Negative ng/ml (<50)
[2023-06-05 20:43] LABS: Cocaine Screen,Urine Negative ng/ml (<300); Methadone Screen,Urine Negative ng/ml (<300)
[2023-06-05 20:44] LABS: Opiate Screen,Urine Negative ng/ml (<300)
[2023-06-05 20:45] LABS: Phencyclidine Screen,Urine Negative ng/ml (<25)
== END 2023-06-05 23:59 ==
LOC: LAB.DROPOF 20:35
PROVIDERS: PCP Family Medicine; Visit Provider Family Medicine
DX: Z79.899 Other long term (current) drug therapy (principal)
CPT/HCPCS: 80307

== ENCOUNTER 2023-06-29 00:53 | Emergency (ER) | payer MEDICARE, SELFPAY ==
[2023-06-29 00:55] VITALS: BP 188/89; PULSE 88; RESP 33; TEMP 36.9; O2SAT 88; BMI 44.2
--- NOTE | 2023-06-29 01:02 | ECG_ITS ---
APPROVED REPORT Exam: Resting ECG HR:102 bpm ECG Measurements Heart Rate 102 AXES KS 171 P 82 QRSd 102 QRS 21 QT 348 T 89 QTc 407 Conclusion SINUS TACHYCARDIA WITH OCCASIONAL SUPRAVENTRICULAR PREMATURE COMPLEXES NONSPECIFIC T-WAVE ABNORMALITY ABNORMAL RHYTHM ECG UNCONFIRMED REPORT Electronically signed by : LEILANI HARO, 07/02/2023 02:57:00
--- NOTE | 2023-06-29 01:02 | PC.NURSE ---
Placed patient on 2LNC as patient is currently 88% on RM, Dr. Velasco arrived to bedside, updated provider.
--- NOTE | 2023-06-29 01:05 | XR_ITS ---
PROCEDURE INFORMATION: Exam: XR Chest Exam date and time: 06/29/2023 1:14 AM Age: 63 years old Clinical indication: Shortness of breath; Additional info: SOA, copd TECHNIQUE: Imaging protocol: Radiologic exam of the chest. Views: 1 view. COMPARISON: CT LUNG SCREENING 12/15/2021 2:19 PM FINDINGS: Limitations: The patient is wearing a bra which minimally limits the study. Lungs: No evidence of acute pulmonary disease or infiltrates Pleural spaces: No large effusion or pneumothorax. Heart/Mediastinum: No evidence of mediastinal widening or cardiac silhouette enlargement; the mediastinum and heart appear within normal limits for contour and size. Bones/joints: No evidence of acute osseous abnormalities within the visualized portions of the thoracic spine and ribs. Osseous structures appear appropriate for patient age. IMPRESSION: No dense parenchymal consolidation, pleural effusion, or pneumothorax.
--- NOTE | 2023-06-29 01:05 | ED_ITS ---
Discharge Plan Disposition Patient Disposition: Home, Self-Care Prescriptions Prescriptions: New prednisone 50 mg tablet 50 mg PO DAILY 5 Days Qty: 5 0RF No Action losartan 50 mg tablet 50 mg PO DAILY metformin 500 mg tablet extended release 24 hr 1,000 mg PO BID allopurinol 100 mg tablet 100 mg PO BID bisoprolol fumarate 5 mg tablet 5 mg PO DAILY cetirizine 10 mg tablet 10 mg PO DAILY Patient Comments: TAKE ONE TABLET BY MOUTH EVERY DAY triamcinolone acetonide 0.1 % cream 1 applic topical BID Qty: 30 0RF albuterol sulfate 0.63 mg/3 mL solution for nebulization 0.63 mg inhalation QID PRN (Reason: shortness of breath or wheezing) Qty: 75 0RF sodium chloride 0.9 % solution for nebulization 3 ml inhalation Q15M PRN (Reason: shortness of breath or wheezing) Qty: 90 2RF alprazolam 0.5 mg tablet 0.5 mg PO TIDP PRN (Reason: Anxiety) Qty: 90 2RF simvastatin 40 MG tablet 40 mg PO HS cholecalciferol (vitamin D3) 2,000 UNIT tablet 2,000 unit PO DAILY omeprazole 40 MG capsule,delayed release(DR/EC) 40 mg PO DAILY levothyroxine 75 MCG tablet 75 mcg PO DAILY duloxetine 60 MG capsule,delayed release(DR/EC) 60 mg PO DAILY verapamil 120 MG tablet 120 mg PO BID Referrals Follow up/Referrals: Paul Noe MD [Primary Care Provider] - See instructions Activity Restrictions/Add. Instructions Additional Instructions/Restrictions: Please follow-up with your primary care provider. Please return to the emergency department if you develop any new or worsening symptoms or become concerned for your health. Please take steroids as prescribed if your symptoms continue. Clinical Impressions Clinical Impression: Acute exacerbation of chronic obstructive pulmonary disease (COPD) Discharge ED Provider: Robson Velasco General Adult HPI General Chief complaint: Shortness of Breath/Dyspnea Stated complaint: copd, trouble breathing Time Seen by Provider: 06/29/23 01:05 History of Present Illness HPI narrative: 63-year-old female with history of COPD, diabetes, arthritis, chronic kidney disease presents with worsening shortness of breath. They have been replacing the floor inside the home and has been very kishan today. They also stained some cabinets and that is produced fumes as well. The patient's shortness of breath has been worsening since that time. She reports this feels like when she ac cidentally inhaled some cleaning chemicals. She denies any chest pain. Denies any abdominal pain or recent fever or illness. Related Data Home Medications Medication Instructions Recorded Confirmed duloxetine 60 mg capsule,delayed 60 mg PO DAILY Depression 11/03/17 06/05/23 release levothyroxine 75 mcg tablet 75 mcg PO DAILY THYROID 11/03/17 06/05/23 omeprazole 40 mg capsule,delayed 40 mg PO DAILY GERD 11/03/17 06/05/23 release verapamil 120 mg tablet 120 mg PO BID HEART RATE 11/03/17 06/05/23 cholecalciferol (vitamin D3) 50 2,000 unit PO DAILY Supplement 02/19/19 06/05/23 mcg (2,000 unit) tablet simvastatin 40 mg tablet 40 mg PO HS Cholesterol 02/19/19 06/05/23 allopurinol 100 mg tablet 100 mg PO BID 09/08/21 06/05/23 bisoprolol fumarate 5 mg tablet 5 mg PO DAILY 09/08/21 06/05/23 losartan 50 mg tablet 50 mg PO DAILY 09/08/21 06/05/23 metformin 500 mg tablet,extended 1,000 mg PO BID 09/08/21 06/05/23 release 24 hr cetirizine 10 mg tablet 10 mg PO DAILY 02/16/23 06/05/23 Previous Rx's Medication Instructions Recorded alprazolam 0.5 mg tablet 0.5 mg PO TIDP PRN Anxiety #90 tabs 10/12/21 triamcinolone acetonide 0.1 % 1 applic topical BID #30 grams 02/16/23 topical cream albuterol sulfate 0.63 mg/3 mL 0.63 mg (3 mL) inhalation QID PRN 05/15/23 solution for nebulization shortness of breath or wheezing #75 mL sodium chloride 0.9 % for 3 ml inhalation Q15M PRN shortness 05/15/23 nebulization of breath or wheezing #90 mL prednisone 50 mg tablet 50 mg PO DAILY 5 days #5 tabs 06/29/23 Allergies Allergy/AdvReac Type Severity Reaction Status Date / Time No Known Allergies Allergy Verified 06/05/23 13:48 [facility] Disclaimer: The information contained in this section may have been updated after the patient was seen, as this information can be updated by other users. Medical History Lichen sclerosus of female genitalia Lightheadedness Generalized weakness Orthostatic hypotension Elevated erythrocyte sedimentation rate E. coli UTI Abdominal pain, left upper quadrant JOHNNIE (acute kidney injury) Gastroenteritis Surgical History H/O tubal ligation Family History Father Cancer Social History Smoking Status: Former smoker tobacco type: cigarettes packs per day: 1 alcohol intake: never substance use type: denies use current occupational status: disabled Travel in the last 8 weeks: None household members: spouse and family housing: house current occupational exposures/hazards: No caffeine: Yes ROS Obtained: Yes All systems reviewed & no additional complaints except as documented Physical Exam General General appearance: alert and in no apparent distress Head Head exam: atraumatic and normocephalic Eye Eye exam: Present normal appearance, PERRL and EOMI ENT ENT exam: Present normal oropharynx and normal external ear exam Neck Neck exam: Present normal inspection and full ROM Chest Chest inspection: Present normal inspection and symmetric chest wall rise; Absent tenderness Respiratory Respiratory exam: Present wheezes and prolonged expiratory phase; Absent respiratory distress Cardiovascular Cardiovascular exam: Present normal rhythm and tachycardia Abdominal Exam Abdominal exam: Present soft; Absent distention, tenderness or guarding Extremities Exam Extremities exam: Present normal inspection; Absent edema or joint swelling Back Exam Back exam: Present normal inspection; Absent tenderness Neurological Exam Neurological exam: Present alert and oriented X3; Absent motor sensory deficit Psychiatric Psychiatric exam: Present normal affect and normal mood Skin Skin exam: Present warm, dry and normal color Lymphatic Lymphatic Findings: no adenopathy Medical Decision Making Medical Records Medical records reviewed: Yes I reviewed the patient's medical records. Will Inquiry Pt receiving controlled substance: No Will was queried for this patient: No Vital Signs: 06/29/23 00:55 06/29/23 01:42 06/29/23 01:42 Temperature 98.4 F Temperature Source Oral Pulse Rate 93 H 93 H Pulse Rate [Left Radial] 88 Respiratory Rate 33 H Blood Pressure Blood Pressure [Right Arm] 188/89 H Blood Pressure Mean Blood Pressure Mean [Right Arm] 122 Blood Pressure Source [Right Arm] Automatic Cuff Blood Pressure Position Blood Pressure Position [Right Arm] Sitting 02 Sat by Pulse Oximetry 88 L Oxygen Delivery Method Room Air Oxygen Flow Rate (LPM) 06/29/23 01:46 06/29/23 02:00 06/29/23 02:31 Temperature Temperature Source Pulse Rate 96 H 85 Pulse Rate [Left Radial] Respiratory Rate 22 13 Blood Pressure 118/68 133/84 153/82 H Blood Pressure [Right Arm] Blood Pressure Mean 87 100 105 Blood Pressure Mean [Right Arm] Blood Pressure Source [Right Arm] Blood Pressure Position Blood Pressure Position [Right Arm] 02 Sat by Pulse Oximetry 89 L 91 L Oxygen Delivery Method Nasal Cannula Oxygen Flow Rate (LPM) 2 06/29/23 02:35 Temperature 98.3 F Temperature Source Oral Pulse Rate 85 Pulse Rate [Left Radial] Respiratory Rate 15 Blood Pressure 153/82 H Blood Pressure [Right Arm] Blood Pressure Mean Blood Pressure Mean [Right Arm] Blood Pressure Source [Right Arm] Blood Pressure Position Sitting Blood Pressure Position [Right Arm] 02 Sat by Pulse Oximetry Oxygen Delivery Method Room Air Oxygen Flow Rate (LPM) Lab Data Lab results reviewed: Yes I reviewed the patient's lab results. Orders (Tests/Meds): ED MEDICATIONS Discontinued Medications Generic Name Dose Route Start Last Admin Trade Name Freq PRN Reason Stop Dose Admin Albuterol/Ipratropium 6 ml 06/29/23 01:05 06/29/23 01:25 Ipratropium/Albuterol 3 Ml Neb IH 06/29/23 01:06 6 ml ONCE ONE Administration Magnesium Sulfate 2 gm in 50 mls @ 50 mls/hr 06/29/23 01:05 06/29/23 01:13 Magnesium Sulfate 2gm/50ml Premix IV 06/29/23 02:04 50 mls/hr ONCE ONE Administration Methylprednisolone Sodium Succinate 80 mg 06/29/23 01:05 06/29/23 01:14 Methylprednisolone Sod Succ 125mg Vial IV 06/29/23 01:06 80 mg ONCE ONE Administration ORDERS Category Date Time Status CXR --portable [XR chest portable] Stat Exams 06/29/23 01:05 Completed Medical Decision Narrative: 63-year-old female with history of obesity, COPD, chronic kidney disease presents with progressive shortness of breath today after exposure to dust and fumes in the home during home renovation projects.. History was obtained interactive discussion with patient, family, chart review on arrival, patient is [afebrile, hemodynamically stable, satting 88-92 on room air,, alert, oriented x4, GCS 15], moving all extremities spontaneously. Full physical exam performed and significant for wheezing and diminished breath sounds with prolonged expiratory phase bilaterally. Differential includes but is not limited to COPD exacerbation, pneumonia, URI, heart failure. History and exam is most consistent with acute COPD exacerbation. Patient was placed on 2 L nasal cannula upon arrival. Patient was given DuoNeb's x 2, 80 of Solu-Medrol, 2 g IV magnesium for symptomatic management and correction of underlying abnormalities. Workup initiated including chest x-ray. On re-evaluation, patient [remains afebrile, HD stable.] She reports marked symptomatic improvement. She is satting 90% back on room air. We will observe for short period of time Imaging independently interpreted by me and significant for no focal opacity, some haziness in the left costophrenic angle. See radiology read for full review of final results. Laboratory workup, CT imaging, BiPAP was considered, but deemed unnecessary due to history and physical exam. Given patient history, exam and workup, patient's presentation most likely represents acute COPD exacerbation. On reassessment patient remains hemodynamically stable and breathing comfortably on room air with sats around 90%. Extensive discussion had with patient regarding her presentation. She was instructed to avoid the dust and fumes that she has been exposed to recently. A prescription for prednisone was written to take if her symptoms persist over the next couple of days. No indication for antibiotic at this time. Patient was discharged in stable condition with return precautions.. Procedures Risk/Benefits of Procedure(s) Were Explained: Yes Critical Care Critical Care Time Critical Care Time: No
--- NOTE | 2023-06-29 01:10 | PC.NURSE ---
Notified respiratory of mariama joy.
[2023-06-29] MEDS: MAGNESIUM SULFATE IN WATER 2 GM/50 ML PIGGYBACK IV (01:13)
[2023-06-29] MEDS: METHYLPREDNISOLONE SOD SUCC 125MG VIAL 80 MG IV (01:14)
--- NOTE | 2023-06-29 01:21 | PC.NURSE ---
patient getting breathing treatment, family at bedside
[2023-06-29] MEDS: IPRATROPIUM/ALBUTEROL 3 ML NEB 6 ML IH (01:25)
[2023-06-29 01:42] VITALS: PULSE 93
[2023-06-29 01:46] VITALS: BP 118/68; PULSE 96; RESP 22; O2SAT 89
[2023-06-29 02:00] VITALS: BP 133/84
[2023-06-29 02:31] VITALS: BP 153/82; PULSE 85; RESP 13; O2SAT 91
[2023-06-29 02:35] VITALS: BP 153/82; PULSE 85; RESP 15; TEMP 36.8; O2SAT 91
== END 2023-06-29 02:36 | disposition home or self-care (01) ==
PROVIDERS: Emergency Provider Emergency Medicine; PCP Family Medicine
DX: J44.1 Chronic obstructive pulmonary disease with (acute) exacerbation (principal); R06.02 Shortness of breath; R00.0 Tachycardia, unspecified; E11.9 Type 2 diabetes mellitus without complications; Z79.84 Long term (current) use of oral hypoglycemic drugs
CPT/HCPCS: 71045; 93005; 96365; 96375; 99284; J3475

== ENCOUNTER 2023-10-04 16:30 | Outpatient (CLI) | payer MEDICARE, SELFPAY ==
[2023-10-04 17:22] LABS: Basophils # 0.1 K/mm3 (0-0.2); Basophils % 1.1 % (0.1-2.0); Eosinophils # 0.3 K/mm3 (0.0-0.4); Hematocrit 27.5 % (37.0-47.0); Hemoglobin 9.8 g/dL (12.2-16.2); Lymphocytes # 2.3 K/mm3 (0.7-4.5); Lymphocytes % 25.6 % (10-50); Mean Corpuscular HGB Conc 35.6 g/dL (31.8-35.4); Mean Corpuscular Hemoglobin 28.8 pg (27.0-31.2); Mean Corpuscular Volume 80.8 fl (81-99); Mean Platelet Volume 10.4 fl (7.4-10.4); Monocytes # 0.5 K/mm3 (0.1-1.0); Monocytes % 5.5 % (1.7-9.3); Neutrophils # 5.7 K/mm3 (1.8-7.8); Neutrophils % 64.8 % (37.0-80.0); Platelet Count 203 K/mm3 (142-424); Red Blood Count 3.41 M/mm3 (4.20-5.40); White Blood Count 8.9 K/mm3 (4.8-10.8)
[2023-10-04 17:40] LABS: Alanine Aminotransferase 24 U/L (12-78); Albumin Level 3.9 g/dl (3.5-5.0); Albumin/Globulin Ratio 1.4 (1.1-1.8); Alkaline Phosphatase 86 U/L (38-126); Aspartate Amino Transferase 25 U/L (14-36); Bilirubin,Total 0.3 mg/dl (0.2-1.3); Blood Urea Nitrogen 19 mg/dl (7-17); Calcium 9.5 mg/dl (8.4-10.2); Carbon Dioxide 21 mmol/L (22.0-30.0); Chloride 111 mmol/L (98-107); Estimated Glomerular Filt Rate 56 ml/min (>60); GFR (African American) 67 ML/MIN (>60); Globulin 2.8 g/dL (1.3-3.2); Glucose 176 mg/dl (74-100); Sodium 142 mmol/L (136-145); Total Protein,Serum 6.7 g/dl (6.3-8.2)
[2023-10-04 19:46] LABS: Hemoglobin A1C 6.5 % (4.0-6.0)
== END 2023-10-04 23:59 | disposition home or self-care (01) ==
LOC: LAB.DROPOF 16:32
PROVIDERS: PCP Family Medicine; Visit Provider Family Medicine
DX: E11.69 Type 2 diabetes mellitus with other specified complication (principal); E66.9 Obesity, unspecified; Z79.84 Long term (current) use of oral hypoglycemic drugs; Z68.42 Body mass index [BMI] 45.0-49.9, adult
CPT/HCPCS: 80053; 83036; 85025

== ENCOUNTER 2024-01-03 13:30 | Outpatient (CLI) | payer MEDICARE, SELFPAY ==
[2024-01-03 16:37] LABS: Creatinine,Urine Random 303 mg/dL (Not Estab.)
[2024-01-03 17:20] LABS: Microalbumin/Creatinine Ratio 103.9
== END 2024-01-03 23:59 | disposition home or self-care (01) ==
LOC: LAB.DROPOF 01-04 12:33
PROVIDERS: PCP Family Medicine; Visit Provider Family Medicine
DX: E11.9 Type 2 diabetes mellitus without complications (principal)
CPT/HCPCS: 82043; 82570

== ENCOUNTER 2024-01-16 15:10 | Outpatient (CLI) | payer MEDICARE, SELFPAY ==
--- NOTE | 2024-01-16 15:10 | CT_ITS ---
FINAL REPORT TECHNIQUE: Thin section axial images were obtained from the lung apices to the upper abdomen by computed tomography. Reformatted images were obtained and reviewed. This study was performed with techniques to keep radiation doses al low as reasonably achievable (ALARA). Individualized dose reduction techniques using automated exposure control or adjustment of mA and/or kV according to the patient's size were employed. CLINICAL HISTORY: former smoker , quit 9 years ago. smoked 2 ppd x 45 years COMPARISON: 12/15/2021 FINDINGS: CHEST CT LOW DOSE 64-year-old female, former smoker who quit 9 years ago, [id number] history. CTDI vol (mGy): 2.9 DLP (mGy-cm): 96.38 There is no axillary adenopathy. There is no mediastinal or hilar mass or adenopathy. The heart is normal in size. There is no pericardial or pleural effusion. Lung window images demonstrate a calcified granuloma in the left lower lobe. There is a 3 mm right upper lobe nodule, best seen on image #31 of series 3, stable. There are scattered other less than 5 mm in size nodules. No new pulmonary nodules are identified.. Limited images of the upper abdomen are unremarkable. IMPRESSION: Lung-RADS category 2. Recommend 12 month follow up low dose chest CT. Reviewed, Interpreted and Dictated by Willian Hidalgo III, MD Transcribed by Veronica Fitzgerald Authenticated and [facility]
[2024-01-16 15:42] LABS: Basophils # 0.2 K/mm3 (0-0.2); Basophils % 1.8 % (0.1-2.0); Eosinophils # 0.3 K/mm3 (0.0-0.4); Eosinophils % 2.9 % (0.1-12.0); Hematocrit 32.5 % (37.0-47.0); Hemoglobin 10.3 g/dL (12.2-16.2); Lymphocytes # 2.8 K/mm3 (0.7-4.5); Lymphocytes % 25.8 % (10-50); Mean Corpuscular HGB Conc 31.7 g/dL (31.8-35.4); Mean Corpuscular Hemoglobin 24.8 pg (27.0-31.2); Mean Corpuscular Volume 78.2 fl (81-99); Mean Platelet Volume 9.5 fl (7.4-10.4); Monocytes # 0.4 K/mm3 (0.1-1.0); Neutrophils # 7.1 K/mm3 (1.8-7.8); Neutrophils % 65.5 % (37.0-80.0); Platelet Count 295 K/mm3 (142-424); Red Blood Count 4.16 M/mm3 (4.20-5.40); Red Cell Distribution Width 16.5 % (11.5-17.5); White Blood Count 10.9 K/mm3 (4.8-10.8)
[2024-01-16 16:29] LABS: Alanine Aminotransferase 47 U/L (12-78); Albumin Level 4.2 g/dl (3.5-5.0); Albumin/Globulin Ratio 1.4 (1.1-1.8); Alkaline Phosphatase 111 U/L (38-126); Anion Gap 16.7 mEq/L (5-15); Aspartate Amino Transferase 40 U/L (14-36); Bilirubin,Total 0.5 mg/dl (0.2-1.3); Blood Urea Nitrogen 16 mg/dl (7-17); Calcium 9.5 mg/dl (8.4-10.2); Carbon Dioxide 25 mmol/L (22.0-30.0); Chloride 101 mmol/L (98-107); Chol/HDL Ratio 4.3 (1-3.5); Cholesterol 141 mg/dl (140-200); Estimated Glomerular Filt Rate 45 ml/min (>60); GFR (African American) 55 ML/MIN (>60); Glucose 201 mg/dl (74-100); HDL Cholesterol 33 mg/dl (40-60); Potassium 4.7 mmoL/L (3.5-5.1); Sodium 138 mmol/L (136-145); Total Protein,Serum 7.2 g/dl (6.3-8.2); Triglycerides 270 mg/dl (30-150); VLDL Cholesterol 54 mg/dL (0-40)
[2024-01-16 16:40] LABS: Direct LDL Cholesterol 66.12 mg/dL (100-129)
[2024-01-16 17:46] LABS: Iron 59 ug/dL (37-170); Total Iron Binding Capacity 447 ug/dL (265-497)
== END 2024-01-16 23:59 | disposition home or self-care (01) ==
PROVIDERS: PCP Family Medicine; Visit Provider Family Medicine
DX: F17.210 Nicotine dependence, cigarettes, uncomplicated (principal); D64.9 Anemia, unspecified; Z86.2 Personal history of diseases of the blood and blood-forming organs and certain disorders involving the immune mechanism; E78.5 Hyperlipidemia, unspecified
CPT/HCPCS: 71271; 80053; 80061; 82728; 83540; 83550; 85025

== ENCOUNTER 2024-01-22 14:48 | Outpatient (CLI) | payer MEDICARE, SELFPAY ==
[2024-01-22 15:12] VITALS: BP 149/69; PULSE 71; RESP 18; TEMP 36.7; O2SAT 96
[2024-01-22] MEDS: SODIUM CHLORIDE 0.9% 50ML BAG 50 ML IV (15:12)
[2024-01-22] MEDS: SODIUM CHLORIDE 0.9% 10ML FLUSH SYRINGE 10 ML IV (15:12)
[2024-01-22] MEDS: IRON SUCROSE COMPLEX 200 MG in 0.9 % SODIUM CHLORIDE 100 ML 220 MG IV (15:12)
[2024-01-22 15:50] VITALS: BP 138/70; PULSE 72; RESP 18; O2SAT 96
== END 2024-01-22 15:50 | disposition home or self-care (01) ==
LOC: INF 14:49
PROVIDERS: PCP Family Medicine; Visit Provider Family Medicine
DX: D50.9 Iron deficiency anemia, unspecified (principal)
CPT/HCPCS: 96365; J1756

== ENCOUNTER 2024-01-29 14:55 | Outpatient (CLI) | payer MEDICARE, SELFPAY ==
[2024-01-29] MEDS: SODIUM CHLORIDE 0.9% 10ML FLUSH SYRINGE 10 ML IV (15:04)
[2024-01-29] MEDS: SODIUM CHLORIDE 0.9% 50ML BAG 50 ML IV (15:04)
[2024-01-29] MEDS: IRON SUCROSE COMPLEX 200 MG in 0.9 % SODIUM CHLORIDE 100 ML 220 MG IV (15:05)
[2024-01-29 15:07] VITALS: BP 145/74; PULSE 74; RESP 16; TEMP 36.6; O2SAT 96
[2024-01-29 15:42] VITALS: BP 149/84; PULSE 72; RESP 16; TEMP 36.6; O2SAT 96
== END 2024-01-29 15:46 | disposition home or self-care (01) ==
LOC: INF 14:56
PROVIDERS: PCP Family Medicine; Visit Provider Family Medicine
DX: D50.9 Iron deficiency anemia, unspecified (principal)
CPT/HCPCS: 96365; J1756

== ENCOUNTER 2024-02-05 14:49 | Outpatient (CLI) | payer MEDICARE, SELFPAY ==
[2024-02-05] MEDS: SODIUM CHLORIDE 0.9% 50ML BAG 50 ML IV (15:01)
[2024-02-05] MEDS: IRON SUCROSE COMPLEX 200 MG in 0.9 % SODIUM CHLORIDE 100 ML 220 MG IV (15:01)
[2024-02-05] MEDS: SODIUM CHLORIDE 0.9% 10ML FLUSH SYRINGE 10 ML IV (15:01)
[2024-02-05 15:05] VITALS: BP 134/89; PULSE 74; RESP 22; TEMP 36.4; O2SAT 97
[2024-02-05 15:43] VITALS: BP 111/62; PULSE 65; RESP 22; O2SAT 98
== END 2024-02-05 15:50 | disposition home or self-care (01) ==
LOC: INF 14:50
PROVIDERS: PCP Family Medicine; Visit Provider Family Medicine
DX: R50.9 Fever, unspecified (principal)
CPT/HCPCS: 96365; J1756

== ENCOUNTER 2024-02-12 14:49 | Outpatient (CLI) | payer MEDICARE, SELFPAY ==
[2024-02-12 15:02] VITALS: BP 150/87; PULSE 71; RESP 16; TEMP 36.4; O2SAT 94
[2024-02-12] MEDS: IRON SUCROSE COMPLEX 200 MG in 0.9 % SODIUM CHLORIDE 100 ML 220 MG IV (15:02)
[2024-02-12] MEDS: SODIUM CHLORIDE 0.9% 50ML BAG 50 ML IV (15:02)
[2024-02-12] MEDS: SODIUM CHLORIDE 0.9% 10ML FLUSH SYRINGE 10 ML IV (15:02)
[2024-02-12 15:55] VITALS: BP 135/70; PULSE 61; RESP 18; TEMP 36.4; O2SAT 96
== END 2024-02-12 15:56 | disposition home or self-care (01) ==
LOC: INF 14:51
PROVIDERS: PCP Family Medicine; Visit Provider Family Medicine
DX: D50.9 Iron deficiency anemia, unspecified (principal)
CPT/HCPCS: 96365; J1756

== ENCOUNTER 2024-02-19 14:15 | Outpatient (CLI) | payer MEDICARE, SELFPAY ==
[2024-02-19] MEDS: IRON SUCROSE COMPLEX 200 MG in 0.9 % SODIUM CHLORIDE 100 ML 220 MG IV (14:27)
[2024-02-19] MEDS: SODIUM CHLORIDE 0.9% 50ML BAG 50 ML IV (14:28)
[2024-02-19 14:34] VITALS: BP 131/66; PULSE 68; RESP 18; TEMP 36.7; O2SAT 99
== END 2024-02-19 23:59 | disposition home or self-care (01) ==
LOC: INF 14:15
PROVIDERS: PCP Family Medicine; Visit Provider Family Medicine
DX: D50.9 Iron deficiency anemia, unspecified (principal)
CPT/HCPCS: J1756

== ENCOUNTER 2024-04-15 14:28 | Outpatient (CLI) | payer MEDICARE, SELFPAY ==
[2024-04-15 14:57] LABS: Basophils # 0.1 K/mm3 (0-0.2); Basophils % 1.2 % (0.1-2.0); Eosinophils # 0.4 K/mm3 (0.0-0.4); Eosinophils % 3.6 % (0.1-12.0); Hematocrit 38.9 % (37.0-47.0); Hemoglobin 11.7 g/dL (12.2-16.2); Lymphocytes # 2.4 K/mm3 (0.7-4.5); Lymphocytes % 22.5 % (10-50); Mean Corpuscular HGB Conc 30.1 g/dL (31.8-35.4); Mean Corpuscular Hemoglobin 26.8 pg (27.0-31.2); Mean Platelet Volume 11.4 fl (7.4-10.4); Monocytes # 0.7 K/mm3 (0.1-1.0); Monocytes % 6.6 % (1.7-9.3); Neutrophils # 7.1 K/mm3 (1.8-7.8); Neutrophils % 65.6 % (37.0-80.0); Platelet Count 215 K/mm3 (142-424); Red Blood Count 4.37 M/mm3 (4.20-5.40); Red Cell Distribution Width 16.3 % (11.5-17.5); White Blood Count 10.8 K/mm3 (4.8-10.8)
[2024-04-15 15:26] LABS: Albumin Level 4.3 g/dl (3.5-5.0); Chloride 102 mmol/L (98-107)
[2024-04-15 15:27] LABS: Potassium 4.9 mmoL/L (3.5-5.1); Sodium 142 mmol/L (136-145)
[2024-04-15 15:29] LABS: Alanine Aminotransferase 29 U/L (12-78); Albumin/Globulin Ratio 1.5 (1.1-1.8); Alkaline Phosphatase 89 U/L (38-126); Anion Gap 17.9 mEq/L (5-15); Aspartate Amino Transferase 36 U/L (14-36); Bilirubin,Total 0.3 mg/dl (0.2-1.3); Blood Urea Nitrogen 18 mg/dl (7-17); Carbon Dioxide 27 mmol/L (22.0-30.0); Estimated Glomerular Filt Rate 55 ml/min (>60); GFR (African American) 67 ML/MIN (>60); Globulin 2.8 g/dL (1.3-3.2); Total Protein,Serum 7.1 g/dl (6.3-8.2)
[2024-04-15 15:30] LABS: Calcium 9.2 mg/dl (8.4-10.2); Glucose 143 mg/dl (74-100)
== END 2024-04-15 23:59 | disposition home or self-care (01) ==
LOC: LAB 14:29
PROVIDERS: PCP Family Medicine; Visit Provider Family Medicine
DX: D64.9 Anemia, unspecified (principal)
CPT/HCPCS: 36415; 80053; 85025

== ENCOUNTER 2024-05-08 13:55 | Outpatient (CLI) | payer MEDICARE, SELFPAY ==
--- NOTE | 2024-05-08 13:59 | CA_ITS ---
FINAL REPORT CLINICAL HISTORY: RT BRUIT,EX SMOKER,HTN,OBESITY COMPARISON: None FINDINGS: RIGHT CAROTID: CCA PSV -82.3 cm/sec ICA PSV -128.3 cm/sec ICA/CCA PSV ratio -1.9. Comments: Moderate plaque disease is noted. LEFTCAROTID: CCA PSV -115. cm/sec ICA PSV -97. cm/sec ICA/CCA PSV ratio -1.1. Comments: Moderate plaque disease is noted. Antegrade flow is seen within the vertebral arteries. IMPRESSION: Carotid stenosis classified less than 50%, with moderate bilateral plaque. Reviewed, Interpreted and Dictated by Jorge Roberson MD Transcribed by Veronica Fitzgerald Authenticated and [facility]
== END 2024-05-08 23:59 | disposition home or self-care (01) ==
LOC: RT 13:56
PROVIDERS: PCP Family Medicine; Visit Provider Family Medicine
DX: R09.89 Other specified symptoms and signs involving the circulatory and respiratory systems (principal)
CPT/HCPCS: 93880

== ENCOUNTER 2024-07-01 16:03 | Outpatient (CLI) | payer MEDICARE, SELFPAY ==
--- NOTE | 2024-07-01 16:30 | MM_ITS ---
PROCEDURE INFORMATION: Exam: MG Bilateral Screening 3D Mammography Exam date and time: 07/01/2024 4:05 PM Age: 64 years old Clinical indication: Screening examination. TECHNIQUE: Imaging protocol: Bilateral Screening tomosynthesis and 2D mammography including computer-aided detection (CAD) when performed. COMPARISON: 1. MG MM DIG SCREENING MAMM BI W/CAD 05/11/2022 1:12 PM 2. MG DMSB DIG MAMM-SCREEN BETZY 02/08/2016 2:14 PM FINDINGS: MAMMOGRAPHY: Breast composition: The breasts are almost entirely fatty. Mass: None. Architectural distortion: None. Calcifications: No suspicious calcifications. Asymmetric density: None. Skin thickening: None. Axillary adenopathy: None. IMPRESSION: No mammographic evidence of malignancy. Annual screening is recommended unless otherwise clinically indicated. ASSESSMENT: BI-RADS Category 1: Negative.
== END 2024-07-01 23:59 | disposition home or self-care (01) ==
LOC: RAD 16:03
PROVIDERS: PCP Family Medicine; Visit Provider Family Medicine
DX: Z12.31 Encounter for screening mammogram for malignant neoplasm of breast (principal)
CPT/HCPCS: 77063; 77067

== ENCOUNTER 2024-10-28 17:41 | Emergency (ER) | payer MEDICARE, SELFPAY ==
--- OUTSIDE RECORDS SUMMARY | 2024-06-14 17:30 | XMS_ITS ---
Author Organization [facility] Address [address] [place] [address] Care Team Providers Care Candy Mixer Name Role Phone Red Lee Primary Care Provider [phone] Migration, Provider Unavailable Unavailable REASON FOR VISIT [facility] Encounter Medications Medication SIG (Take, Route, Frequency, Duration) Notes Start Date End Date Status Loperamide HCl 2 MG 1 cap(s) orally every 6 hours prn; Duration: 7 day(s) 12/13/2018 Active BI-PAP SUPPLIES DIRECTED DIRECTED; Duration: 30 DAYS *Please review for potential replacement for e-prescription and drug interaction check* 12/17/2019 Active metFORMIN HCl ER 500 MG TAKE TWO TABLETS BY MOUTH TWICE DAILY; Duration: 90 Active ALPRAZolam 0.5 MG 1 tab(s) orally 3 times a day prn; Duration: 30 days 02/09/2023 Active Cetirizine HCl 10 MG 1 tab(s) orally once a day; Duration: 90 Active Vitamin D3 50 MCG TAKE ONE TABLET BY MOUTH EVERY DAY; Duration: 90 *Please review and pick correct strength-formulatio n from Medispan options. If intended option is not shown, discontinue and re-order from Quick Search* Active Levothyroxine Sodium 75 MCG 1 tab(s) orally once a day; Duration: 90 Active Allopurinol 100 MG 1 tab(s) orally 2 times a day; Duration: 90 days Active Simvastatin 40 MG 1 tab(s) orally once a day; Duration: 90 days Active Losartan Potassium 50 MG 1 tab(s) orally once a day; Duration: 90 days Active Verapamil HCl 120 MG TAKE ONE TABLET BY MOUTH TWICE DAILY; Duration: 30 Active Cymbalta 60 MG 1 cap(s) orally once a day; Duration: 90 days Active Omeprazole 40 MG TAKE ONE CAPSULE BY MOUTH EVERY DAY; Duration: 30 Active Bisoprolol Fumarate 5 MG 1 tab(s) orally once a day; Duration: 90 days Active Encounters Encounter Location Date Provider Diagnosis [facility] [address] [place] [address] 06/14/2024 Provider Migration Plan Of Treatment Medication Medication Name Sig Start Date Stop Date Notes metFORMIN HCl ER 500 MG TAKE TWO TABLETS BY MOUTH TWICE DAILY; Duration: 90 ALPRAZolam 0.5 MG 1 tab(s) orally 3 times a day prn; Duration: 30 days 02/09/2023 Cetirizine HCl 10 MG 1 tab(s) orally once a day; Duration: 90 Vitamin D3 50 MCG TAKE ONE TABLET BY MOUTH EVERY DAY; Duration: 90 *Please review and pick correct strength-formulation from [facility] options. If intended option is not shown, discontinue and re-order from Quick Search* Levothyroxine Sodium 75 MCG 1 tab(s) orally once a day; Duration: 90 Allopurinol 100 MG 1 tab(s) orally 2 times a day; Duration: 90 days Simvastatin 40 MG 1 tab(s) orally once a day; Duration: 90 days Losartan Potassium 50 MG 1 tab(s) orally once a day; Duration: 90 days Bisoprolol Fumarate 5 MG 1 tab(s) orally once a day; Duration: 90 days Progress Notes * Staci SAINZDOB:1959 (64 yo F)Acc No.[id number]:06/14/2024 Patient: Staci JEAN-BAPTISTE Provider: Teri epps Migration :1960 A ge:64 Y S ex:Female Date:06/14/2024 Address:[address] [place], [place] [address] [id number] Pcp:Red Lee Subjective: * Chief Complaints: * [facility] . [facility] * Medical History: * Medications: T aking Loperamide HCl 2 MG Capsule 1 cap(s) orally every 6 hours prn , Taking BI- PAP SUPPLIES DIRECTED DIRECTED , Notes to Pharmacist: *Please review for potential replacement for e-prescription and drug interaction check*, Taking Verapamil HCl 120 MG Tablet TAKE ONE TABLET BY MOUTH TWICE DAILY , Taking Cymbalta 60 MG Capsule Delayed Release Particles 1 cap(s) orally once a day , Taking Omeprazole 40 MG Capsule Delayed Release TAKE ONE CAPSULE BY MOUTH EVERY DAY Objective: * Vitals: Assessment: Plan: * Treatment: * * Electronic signature of Fabian prater Migration on 10/28/2024 at 05:53 PM EDT Sign off status: Pending * Provider: Teri epps Migration Date: 0 06/14/2024 Generated for Shane ngyuễn/Reyes/Gila on: 10/28/2024 05:53 PM EDT
[2024-10-28] VITALS (7 sets, daily range): BP systolic 95–153; BP diastolic 42–80; PULSE 60–80; RESP 16–21; TEMP 36.6–36.7; O2SAT 95–98; BMI 52.3
--- OUTSIDE RECORDS SUMMARY | 2024-10-28 17:54 | XMS_ITS | Clinical Summary ---
Author Organization Healthcare Address [address] [place] [address] Care Team Providers Care Line Service Attendant Name Role Phone Red Lee MD Primary Care Provider [phone] Family History Medical History Relation Name Comments Brain cancer Father Other cancer Father Diabetes Other 1 Hypertension Other 2 Macular degeneration Other 3 Brain cancer Other 4 Diabetes Sibling 1 Hypertension Sibling 2 Relation Name Status Comments Father Other 1 Other 2 Other 3 Other 4 Sibling 1 Sibling 2 Social History Tobacco Use Types Packs/Day Years Used Date Smoking Tobacco: Every Day Alcohol Use Standard Drinks/Week Comments No 0 (1 standard drink = 0.6 oz pur e alcohol) Comments Unknown Sex and Gender Information Value Date Recorded Sex Assigned at Not on file Legal Sex Female 8:30 PM EDT Gender Identity Not on file Sexual Orientation Not on file Last Filed Vital Signs Vital Sign Reading Time Taken Comments Blood Pressure 133/76 09/22/2019 1:47 PM EDT Pulse 65 09/22/2019 1:47 PM EDT Temperature - - Respiratory Rate - - Oxygen Saturation - - Inhaled Oxygen Concentration - - Weight 127 kg (281 lb 1.4 oz) 09/22/2019 1:47 PM EDT Height 160 cm (5' 3 ) 09/22/2019 1:47 PM EDT Body Mass Index 49.79 09/22/2019 1:47 PM EDT Plan of Treatment Not on file Care Teams Line Service Attendant Relationship Specialty Start Date End Date Red Lee MD [address] [place] [address] PCP - General 07/23/20
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
--- NOTE | 2024-10-28 18:05 | ECG_ITS ---
APPROVED REPORT Exam: Resting ECG HR:69 bpm ECG Measurements Heart Rate 69 AXES IA 209 P 71 QRSd 97 QRS 20 QT 388 T 28 QTc 407 Conclusion SINUS RHYTHM LOW QRS VOLTAGE IN PRECORDIAL LEADS [QRS DEFLECTION < 1.0 mV IN CHEST LEADS] NONSPECIFIC T-WAVE ABNORMALITY BORDERLINE ECG UNCONFIRMED REPORT Normal sinus rhythm. No ST elevation or depression. Electronically signed by : CONSTANCE CAREY, 10/29/2024 00:28:14
--- NOTE | 2024-10-28 18:07 | HMH.EDGENADL ---
Discharge Plan Disposition Patient Disposition: Home, Self-Care Prescriptions Prescriptions: No Action nystatin 100,000 unit/gram cream 1 applic topical BID Qty: 30 5RF sodium chloride 0.9 % solution for nebulization 3 ml inhalation Q15M PRN (Reason: shortness of breath or wheezing) Qty: 90 2RF albuterol sulfate 0.63 mg/3 mL solution for nebulization 0.63 mg inhalation QID PRN (Reason: shortness of breath or wheezing) Qty: 75 2RF levothyroxine 75 mcg tablet 75 mcg PO DAILY Qty: 90 3RF cetirizine 10 mg tablet See Rx Instructions .ROUTE .COMPLEX Qty: 90 1RF Dose Instruction: TAKE ONE TABLET BY MOUTH EVERY DAY Rx Instructions: TAKE ONE TABLET BY MOUTH EVERY DAY verapamil 120 mg tablet See Rx Instructions .ROUTE .COMPLEX Qty: 180 1RF Dose Instruction: TAKE ONE TABLET BY MOUTH TWICE DAILY Rx Instructions: TAKE ONE TABLET BY MOUTH TWICE DAILY simvastatin 40 mg tablet 40 mg PO HS Qty: 90 3RF alprazolam 0.5 mg tablet 0.5 mg PO TIDP PRN (Reason: Anxiety) Qty: 90 2RF glipizide 10 mg tablet extended release 24hr 10 mg PO BID 90 Days Qty: 180 3RF Rx Instructions: Take 1 tablet BID losartan 50 mg tablet 50 mg PO DAILY Qty: 90 3RF cholecalciferol (vitamin D3) 50 mcg (2,000 unit) tablet 2,000 unit PO DAILY 90 Days Qty: 90 0RF omeprazole 40 mg capsule,delayed release(DR/EC) See Rx Instructions .ROUTE .COMPLEX Qty: 90 0RF Dose Instruction: TAKE ONE CAPSULE BY MOUTH EVERY DAY Rx Instructions: TAKE ONE CAPSULE BY MOUTH EVERY DAY duloxetine 60 mg capsule,delayed release(DR/EC) See Rx Instructions .ROUTE .COMPLEX Qty: 90 0RF Dose Instruction: TAKE ONE CAPSULE BY MOUTH EVERY DAY Rx Instructions: TAKE ONE CAPSULE BY MOUTH EVERY DAY metformin 500 mg tablet extended release 24 hr 1,000 mg PO BID 30 Days Qty: 120 2RF allopurinol 100 mg tablet 100 mg PO BID 30 Days Qty: 60 2RF bisoprolol fumarate 5 mg tablet See Rx Instructions .ROUTE .COMPLEX Qty: 90 1RF Dose Instruction: TAKE ONE TABLET BY MOUTH EVERY DAY Rx Instructions: TAKE ONE TABLET BY MOUTH EVERY DAY amoxicillin-pot clavulanate [Augmentin] 500-125 mg tablet 1 tab PO TID Qty: 30 0RF Referrals Follow up/Referrals: Paul Noe MD [Primary Care Provider, Internal Medicine] - See instructions Walker Randle MD [Staff Physician, Cardiology] - See instructions Activity Restrictions/Add. Instructions Additional Instructions/Restrictions: You are being referred to the rn labor delivery, Dr. Randle, for follow-up regarding your swelling. Encouraged to continue taking your antibiotics as prescribed. Follow-up with Dr. Noe tomorrow to schedule a follow-up appointment. If you develop any new or worsening symptoms, or if you become concerned for your health for any reason, return to the emergency department for evaluation. Clinical Impressions Clinical Impression: Shortness of breath, Bilateral leg edema, Elevated brain natriuretic peptide (BNP) level Print Language Print Language: Trinidadian Discharge ED Provider: Brandon Gusman Adult HPI General Chief complaint: Extremity Injury, Lower Stated complaint: AO 2 weeks ago Left leg injury,hurts all over Time Seen by Provider: 10/28/24 17:54 Mode of Arrival: Ambulatory Source of Information: Patient Limitations: No Limitations History of Present Illness HPI narrative: Staci Rebolledo is a 64y female with a history of sleep apnea uses BiPAP at night, COPD, anxiety, obesity, CKD who presents to the emergency department for concern for fatigue, weakness and shortness of breath. Patient states that 3 weeks ago, she fell while being pushed in a wheelchair and injured her left lower extremity. She has been on Augmentin for 6 days now and feels that her legs not significantly getting better and states that the leg gets warm at night. She is also noted swelling to both of her lower extremities. Starting today, she has felt myalgias as well as fatigue and shortness of breath worsened with exertion. She does state that she is short of breath at baseline but it feels worse than normal. She denies any chest pain or cough. She denies any fevers. She spoke with her primary care physician and was at an appointment today with them, however they got pulled away to a meeting and they advised her to come to the emergency department for possible pulmonary embolism. Related Data Previous Rx's ?Medication ?Instructions ?Recorded sodium chloride 0.9 % for 3 ml inhalation Q15M PRN shortness 05/15/23 nebulization of breath or wheezing #90 mL albuterol sulfate 0.63 mg/3 mL 0.63 mg (3 mL) inhalation QID PRN 10/12/23 solution for nebulization shortness of breath or wheezing #75 mL levothyroxine 75 mcg tablet 75 mcg PO DAILY THYROID #90 tabs 02/13/24 cetirizine 10 mg tablet See Rx Instructions .Route 04/08/24 .COMPLEX #90 tabs nystatin 100,000 unit/gram topical 1 applic topical BID #30 grams 06/24/24 cream verapamil 120 mg tablet See Rx Instructions .Route 07/09/24 .COMPLEX #180 tabs simvastatin 40 mg tablet 40 mg PO HS Cholesterol #90 tabs 08/07/24 alprazolam 0.5 mg tablet 0.5 mg PO TIDP PRN Anxiety #90 tabs 08/14/24 glipizide 10 mg tablet, extended 10 mg PO BID 90 days #180 tabs 09/16/24 release 24 hr losartan 50 mg tablet 50 mg PO DAILY #90 tabs 09/16/24 allopurinol 100 mg tablet 100 mg PO BID 30 days #60 tabs 10/10/24 bisoprolol fumarate 5 mg tablet See Rx Instructions .Route 10/10/24 .COMPLEX #90 tabs cholecalciferol (vitamin D3) 50 2,000 unit PO DAILY Supplement 90 10/10/24 mcg (2,000 unit) tablet days #90 tabs duloxetine 60 mg capsule,delayed See Rx Instructions .Route 10/10/24 release .COMPLEX #90 caps metformin 500 mg tablet,extended 1,000 mg (2 x 500 mg) PO BID 30 10/10/24 release 24 hr days #120 tabs omeprazole 40 mg capsule,delayed See Rx Instructions .Route 10/10/24 release .COMPLEX #90 caps amoxicillin 500 mg-potassium 1 tab PO TID #30 tabs 10/22/24 clavulanate 125 mg tablet (Augmentin) Allergies Allergy/AdvReac Type Severity Reaction Status Date / Time shingle vaccine Allergy Mild itching Uncoded 09/24/24 12:45 [facility] Disclaimer: The information contained in this section may have been updated after the patient was seen, as this information can be updated by other users. Medical History (Updated 10/28/24 @ 22:35 by Brandon Gusman MD) History of thyroid disease History of sleep apnea History of neuropathy History of kidney disease History of hypertension History of hyperlipidemia History of diabetes as a child History of depression History of CHF (congestive heart failure) History of COPD History of anxiety History of anemia DUSTIN (obstructive sleep apnea) Hypertensive heart and chronic kidney disease with heart failure and stage 1 through stage 4 chronic kidney disease, or unspecified chronic kidney disease Chronic kidney disease, stage 3b Other reduced mobility Age-related physical debility Difficulty in walking, not elsewhere classified Lichen sclerosus of female genitalia Lightheadedness Generalized weakness Orthostatic hypotension Elevated erythrocyte sedimentation rate E. coli UTI Abdominal pain, left upper quadrant JOHNNIE (acute kidney injury) Gastroenteritis Surgical History H/O tubal ligation Family History Father Cancer Other Hyperlipidemia Hypertension Social History Smoking Status: Former smoker tobacco type: cigarettes packs per day: 1 alcohol intake: former substance use type: denies use current occupational status: unemployed and retired Travel in the last 8 weeks?: None household members: spouse housing: house marital status: current occupational exposures/hazards: No caffeine: Yes Have you lived/traveled outside [place] in past 30 days?: No Contact w/someone who lives/traveled outside US past 30 days?: No Exposure to someone with infectious disease in past 14 days?: No Do you have a fever (greater than 100.4 F or 38 C)?: No Have you tested positive for COVID-19?: No Exposed to someone with COVID-19 in past 14 days?: No Do you have a sore throat?: No Do you have a cough?: No Do you have any weakness?: No Do you have any diarrhea?: No Are you experiencing any unusual bleeding?: No Do you have any muscle aches/pain?: No Do you have any abdominal pain?: No Are you experiencing loss of taste or smell?: No Other Medical History Have you received the Flu Vaccine for this season: Yes (2019) Have you received the Pneumonia Vaccine: No ROS Obtained: Yes Systems reviewed as appropriate & no additional complaints except as documented Physical Exam General General appearance: alert, in no apparent distress and obese Head Head exam: atraumatic Eye Eye exam: Present normal appearance ENT ENT exam: Present normal external ear exam Neck Neck exam: Present full ROM Chest Chest inspection: Present symmetric chest wall rise Respiratory Respiratory exam: Present normal lung sounds bilaterally and stridor; Absent respiratory distress or wheezes Cardiovascular Cardiovascular exam: Present regular rate and normal rhythm Abdominal Exam Abdominal exam: Present soft; Absent tenderness or guarding Extremities Exam Extremities exam: Present normal inspection and edema Back Exam Back exam: Present normal inspection Neurological Exam Neurological exam: Present alert and oriented X3 Psychiatric Psychiatric exam: Present normal affect Skin Skin exam: Present warm and dry Medical Decision Making Medical Records Screening: Per USPSTF and CDC recommendations, given the prevalence of disease in our region, it is our hospital?s policy to screen for HIV and viral Hepatitis for all patients aged 18 and over and those with ongoing risk factors. Will Inquiry Pt receiving controlled substance: No Vital Signs: 10/28/24 18:09 10/28/24 18:32 10/28/24 19:30 Temperature 98.1 F Temperature Source Oral Pulse Rate 65 60 Pulse Rate [Left Radial] 80 Respiratory Rate 20 20 21 Blood Pressure 95/42 L 102/53 L Blood Pressure [Right Arm] 123/80 Blood Pressure Mean [Right Arm] 94 Blood Pressure Source Blood Pressure Position 02 Sat by Pulse Oximetry 98 97 98 Oxygen Delivery Method Room Air 10/28/24 20:00 10/28/24 20:31 10/28/24 21:00 Temperature Temperature Source Pulse Rate 65 67 61 Pulse Rate [Left Radial] Respiratory Rate 16 20 16 Blood Pressure 122/73 148/63 H 153/61 H Blood Pressure [Right Arm] Blood Pressure Mean [Right Arm] Blood Pressure Source Blood Pressure Position 02 Sat by Pulse Oximetry 98 95 96 Oxygen Delivery Method 10/28/24 22:45 Temperature 97.8 F Temperature Source Tympanic Pulse Rate 80 Pulse Rate [Left Radial] Respiratory Rate 16 Blood Pressure 132/69 Blood Pressure [Right Arm] Blood Pressure Mean [Right Arm] Blood Pressure Source Automatic Cuff Blood Pressure Position Sitting 02 Sat by Pulse Oximetry Oxygen Delivery Method Room Air Lab Data Lab Results 10/28/24 18:05: WBC 13.4 H, RBC 3.64 L, Hgb 10.0 L, Hct 32.3 L, MCV 88.7, MCH 27.5, MCHC 31.0 L, RDW 15.7, Plt Count 245, MPV 11.0 H, Neut % (Auto) 76.6, Lymph % (Auto) 14.1, [place] % (Auto) 5.1, Eos % (Auto) 2.3, Baso % (Auto) 0.6, Neut # (Auto) 10.3 H, Lymph # (Auto) 1.9, [place] # (Auto) 0.7, Eos # (Auto) 0.3, Baso # (Auto) 0.1, VBG pH 7.34, VBG pCO2 38.0, VBG pO2 50.8 H, VBG HCO3 20.0 L, VBG Total CO2 21.2 L, VBG O2 Saturation 80.9 H, VBG Base Excess -5.7 L, VBG Lactic Acid 4.4 H, Sodium 138, Potassium 4.8, Chloride 105, Carbon Dioxide 20 L, Anion Gap 17.8 H, BUN 22 H, Creatinine 1.50 H, Estimated Creat Clear 29, Estimated GFR 35 L, Est GFR ( Amer) 42 L, Glucose 177 H, Calcium 9.1, Total Bilirubin 0.5, AST 26, ALT 24, Alkaline Phosphatase 98, NT-Pro-B Natriuret Pep 354 H, Total Protein 7.7, Albumin 4.3, Globulin 3.4 H, Albumin/Globulin Ratio 1.3 10/28/24 18:32: SARS-CoV-2 (PCR) Not detected, Influenza A Untype (PCR) Not detected, Influenza Type B (PCR) Not detected 10/28/24 18:39: Lactate 4.3 H 10/28/24 21:45: Lactate 1.8 10/28/24 18:05 10/28/24 18:05 Orders (Tests/Meds): ED MEDICATIONS Discontinued Medications Generic Name Dose Route Start Last Admin Trade Name Freq PRN Reason Stop Dose Admin Diphenhydramine HCl 25 mg 10/28/24 21:11 10/28/24 21:14 Diphenhydramine 50mg/Ml Vial IV 10/28/24 21:12 25 mg ONCE ONE Administration Lactated Ringer's 500 mls @ 999 mls/hr 10/28/24 18:44 10/28/24 19:31 Lactated Ringer's 500ml IV 10/28/24 19:14 Infused .Q31M ONE Infusion Iopamidol 80 ml 10/28/24 19:10 10/28/24 19:10 Iopamidol-370 (76%);100ml Bottle IV 10/28/24 19:11 80 ml ONCE ONE Administration Sodium Chloride 50 ml 10/28/24 19:10 10/28/24 19:10 0.9 % Sodium Chloride 50 Ml Vial IV 10/28/24 19:11 50 ml ONCE ONE Administration Sodium Chloride 10 ml 10/28/24 19:10 10/28/24 19:10 Sodium Chloride 0.9% 10ml Syr (Rad Only) IV 11/27/24 19:09 10 ml NEEDED PRN Administration Maintain IV Site ORDERS Category Date Time Status CT angio chest PE protocol Stat Cat Scan 10/28/24 18:16 Completed POCUS Point of Care (ER Only) Stat Exams 10/28/24 18:16 Completed BNP [NT Pro Brain Natriuretic Pep.] Stat Lab 10/28/24 18:05 Completed CBC w/Auto Diff [Complete Blood Count Auto Diff] Stat Lab 10/28/24 18:05 Completed CMP [Comprehensive Metabolic Panel] Stat Lab 10/28/24 18:05 Completed Lactic Acid Follow Up (RFLX 1) Stat Lab 10/28/24 21:45 Completed Lactic Acid Stat Lab 10/28/24 18:39 Completed Rapid PCR Covid and Flu A/B Stat Lab 10/28/24 18:32 Completed Blood Culture Stat Micro 10/28/24 18:55 Received VBG [Venous Blood Gas] Stat RT 10/28/24 18:05 Completed ECG Data Tracing #1: I reviewed this ECG and interpreted as documented below: NSR. No ST elevation or depression. QTC 407 Medical Decision Narrative: Staci Rebolledo is a 64y female with a history of sleep apnea uses BiPAP at night, COPD, anxiety, obesity, CKD who presents to the emergency department for concern for fatigue, weakness and shortness of breath. Patient states that 3 weeks ago, she fell while being pushed in a wheelchair and injured her left lower extremity. She has been on Augmentin for 6 days now and feels that her legs not significantly getting better and states that the leg gets warm at night. She is also noted swelling to both of her lower extremities. Starting today, she has felt myalgias as well as fatigue and shortness of breath worsened with exertion. She does state that she is short of breath at baseline but it feels worse than normal. She denies any chest pain or cough. She denies any fevers. She spoke with her primary care physician and was at an appointment today with them, however they got pulled away to a meeting and they advised her to come to the emergency department for possible pulmonary embolism. On arrival, patient is normotensive, heart rate within normal limits, breathing comfortably on room air with appropriate oxygen saturation. Afebrile. Physical exam, as stated above, reveals an overall well-appearing female in no distress. She is speaking in full sentences. GCS 15. Cardiopulmonary exam is unremarkable. Abdomen is soft, nontender nondistended. She does have 2+ pitting edema to her distal bilateral lower extremities. Differential diagnosis includes, but is not limited to: Pneumonia, pulmonary embolism, viral respiratory illness, CHF, electrolyte derangement, metabolic derangement, among others. The most morbid conditions were considered and workup was based on these. Laboratory studies showed mild leukocytosis of 13.4, stably low hemoglobin at 10 and hematocrit of 32.3. Initial VBG with normal pH of 7.34 but lactate of 4.4. Creatinine is chronically elevated and near baseline of 1.5, BUN of 22, anion gap is mildly elevated at 17.8, likely secondary to elevated lactate. Glucose of 177. Liver enzymes and bilirubin within normal limits. BNP is mildly elevated at 354. Negative viral respiratory panel. EKG, as stated above, showed no evidence of ischemia. Oxnnk-if-hsed cardiac and lung ultrasound showed normal estimated left ventricular ejection fraction. No pericardial effusion. No wall motion abnormalities. No B-lines or consolidations on lung ultrasound. See procedure note for details. CT imaging was interpreted by me personally. No groundglass opacities, no pulmonary emboli. See final radiology report for details. On reassessment, patient remained hemodynamically stable without any worsening of her symptoms. Is felt that she would benefit from referral to cardiology for her lower extremity edema and mildly elevated BNP for workup of possible congestive heart failure. She does state that she has been told that she might have heart failure but is never been formally worked up for it. Encouraged her to follow-up with her primary care physician closely and gave strict return precautions. All questions were answered. She demonstrated understanding and was in agreement this plan. She was then discharged from the emergency department in stable condition. Procedures Limited Ultrasound Interpretation:: Limited cardiac ultrasound Indication: Shortness of breath Identified cardiac views: Cardiac parasternal long axis -Cardiac parasternal short axis -Cardiac apical four-chamber -Cardiac subxiphoid Findings: -Cardiac activity present -Wall motion grossly normal -Pericardial effusion absent -Right heart strain absent Impression: -From above Images were saved to permanent archive The study was technically adequate CPT: 09661 This study was performed by mt, and I personally interpreted all images/videos. Based on my clinical judgement, these images were adequate and did not necessitate further imaging. Limited lung ultrasound A focused ultrasound exam of the pleural spaces was performed to evaluate for pneumothorax, pulmonary edema, pleural effusion and/or consolidation. The ultrasound was performed with the following indications, as noted in the H&P: Dyspnea Identified structures: Right and left thoracic cavities were examined. Findings: Lung sliding: - Left present - Right present B-lines: - Left absent - Right absent Pleural effusion: - Left absent - Right absent Consolidation: - Left absent - Right absent Impression: - Pneumothorax absent - Pleural effusion absent - B-lines absent - Consolidation absent Images were saved to permanent archive The study was technically adequate CPT 56251-22 This study was performed by mt, and I personally interpreted all images/videos. Based on my clinical judgement, these images were adequate and did not necessitate further imaging. Critical Care Critical Care Time Critical Care Time: No
--- NOTE | 2024-10-28 18:16 | CT_ITS ---
PROCEDURE INFORMATION: Exam: CTA Chest With Contrast Exam date and time: 10/28/2024 7:07 PM Age: 64 years old Clinical indication: Cough; Additional info: Shortness of breath, possible pe TECHNIQUE: Imaging protocol: Computed tomographic angiography of the chest with contrast. Exam focused on the arteries. 3D rendering (Not supervised by radiologist): MIP and/or 3D reconstructed images were created by the technologist. Total images: 691 Radiation optimization: All CT scans at this facility use at least one of these dose optimization techniques: automated exposure control; mA and/or kV adjustment per patient size (includes targeted exams where dose is matched to clinical indication); or iterative reconstruction. Contrast material: ISOVUE; Contrast volume: 75 ml; Contrast route: INTRAVENOUS (IV); COMPARISON: CT ANGIO CHEST 04/07/2020 2:08 PM FINDINGS: Pulmonary arteries: Adequate contrast opacification of the pulmonary arteries. No main or saddle pulmonary emboli. No lobar or segmental pulmonary emboli. Distal segmental evaluation of both lung bases is compromised by attenuation and motion artifact. Aorta: Moderate to severe atherosclerotic irregularity of the thoracic aorta without aneurysm or dissection. Lungs: The trachea and main bronchi are patent. No acute infiltrate or airspace consolidation. No pulmonary mass. Linear left basilar atelectasis or scarring. Calcified left basilar granuloma. There are few scattered pulmonary micro nodules, unchanged from January 16, 2024. Pleural spaces: Unremarkable. No pneumothorax. No pleural effusion. Heart: Normal heart size. No pericardial effusion. Small quantity fluid in the superior pericardial recess. Coronary arteries: Coronary artery calcifications. Mediastinal space: No mediastinal mass or hematoma. Lymph nodes: Calcified left hilar and subcarinal lymph nodes. No mediastinal lymphadenopathy. Liver: Mild hepatic steatosis versus phase of contrast. Intraperitoneal space: No acute process in the upper abdomen. Bones/joints: Osteopenia. Moderate degenerative changes throughout the thoracic spine. Mild levocurvature at the thoracolumbar junction. Soft tissues: Unremarkable. IMPRESSION: 1. No acute intrathoracic process. Specifically, no acute pulmonary emboli. 2. Stable scattered calcified and noncalcified pulmonary micro nodules, most likely granulomatous. 3. Clear lungs.
[2024-10-28 18:25] LABS: Hematocrit 32.3 % (37.0-47.0); Hemoglobin 10.0 g/dL (12.2-16.2); Immature Granulocytes % 1.3 %; Mean Corpuscular HGB Conc 31.0 g/dL (31.8-35.4); Mean Corpuscular Hemoglobin 27.5 pg (27.0-31.2); Mean Corpuscular Volume 88.7 fl (81-99); Nucleated Red Blood Cells % 0 %; Platelet Count 245 K/mm3 (142-424); Red Blood Count 3.64 M/mm3 (4.20-5.40); Red Cell Distribution Width-SD 51.1 fL; White Blood Count 13.4 K/mm3 (4.8-10.8)
[2024-10-28 18:28] LABS: Albumin Level 4.3 g/dl (3.5-5.0); Chloride 105 mmol/L (98-107); Potassium 4.8 mmoL/L (3.5-5.1); Sodium 138 mmol/L (136-145)
[2024-10-28 18:30] LABS: Blood Urea Nitrogen 22 mg/dl (7-17); Creatinine Clearance Estimated 29 mL/min (50-200); Creatinine,Serum 1.50 mg/dl (0.52-1.04); Estimated Glomerular Filt Rate 35 ml/min (>60); GFR (African American) 42 ML/MIN (>60)
[2024-10-28 18:31] LABS: Alanine Aminotransferase 24 U/L (12-78); Albumin/Globulin Ratio 1.3 (1.1-1.8); Alkaline Phosphatase 98 U/L (38-126); Anion Gap 17.8 mEq/L (5-15); Aspartate Amino Transferase 26 U/L (14-36); Bilirubin,Total 0.5 mg/dl (0.2-1.3); Calcium 9.1 mg/dl (8.4-10.2); Carbon Dioxide 20 mmol/L (22.0-30.0); Globulin 3.4 g/dL (1.3-3.2); Glucose 177 mg/dl (74-100); Total Protein,Serum 7.7 g/dl (6.3-8.2)
[2024-10-28 18:36] LABS: VBG HCO3 20.0 mmol/L (23-30); VBG PCO2 38.0 mmol/L (35-51); VBG PH 7.34 mmol/L (7.31-7.41); VBG PO2 50.8 mmol/L (28-40)
[2024-10-28 18:38] LABS: Lactate Venous 4.4 mmol/L (0.4-2.0)
[2024-10-28 18:40] LABS: NT Pro Brain Natriuretic Pep. 354 pg/mL (0-125)
[2024-10-28 18:52] LABS: Coronavirus 19, PCR Not Detected (NotDetected); Influenza A, PCR Not Detected (NotDetected); Influenza B, PCR Not Detected (NotDetected)
[2024-10-28] MEDS: RINGERS SOLUTION,LACTATED 500 ML 999 ML IV (18:52)
[2024-10-28] MEDS: IOPAMIDOL-370 (76%);100ML BOTTLE 80 ML IV (19:10)
[2024-10-28] MEDS: 0.9 % SODIUM CHLORIDE 50 ML VIAL IV (19:10)
[2024-10-28] MEDS: SODIUM CHLORIDE 0.9% 10ML SYR (RAD ONLY) 10 ML IV (19:10)
--- NOTE | 2024-10-28 19:28 | PC.NURSE ---
critical called from lab, Lactic 4.2. notified
[2024-10-28 21:51] LABS: Reflex Lactic Add Lactic Reflex
[2024-10-28 22:07] LABS: Lactic Acid Follow Up (RFLX 1) 1.8 mmol/L (0.7-2.1)
[2024-10-31 21:30] LABS: Acinetobacter calcoaceticus-ba Not Detected; Bacteroides fragilis Not Detected; Candida auris Not Detected; Candida glabrata Not Detected; Enterobacterales Not Detected; Enterococcus faecalis Not Detected; Enterococcus faecium Not Detected; Klebsiella aerogenes Not Detected; Klebsiella pneumoniae grp Not Detected; Proteus spp. Not Detected; Salmonella spp. Not Detected; Serratia marcescens Not Detected; Staphylococcus epidermidis Detected; Staphylococcus lugdunensis Not Detected; Staphylococcus spp. Detected; Stenotrophomonas maltophilia Not Detected; Streptococcus agalactiae(GrpB) Not Detected; Streptococcus pyogenes Group A Not Detected; Streptococcus spp. Not Detected; mecA/C Detected
--- NOTE | 2024-11-01 06:17 | PC.NURSE ---
MD notifed of blood culture results. suspects contamination and to check pt condition in the AM by phone call
--- NOTE | 2024-11-03 10:01 | PC.NURSE ---
Prelim blood culture results discussed with . No change to treatment.
--- NOTE | 2024-11-12 10:06 | PC.NURSE ---
I spoke with about the pts final blood culture. No change needed to treatment.
== END 2024-10-28 22:46 | disposition home or self-care (01) ==
PROVIDERS: Emergency Provider Student in an Organized Health Care Education/Training Program; PCP Family Medicine
DX: R06.02 Shortness of breath (principal); R74.02 Elevation of levels of lactic acid dehydrogenase [LDH]; R60.0 Localized edema; R53.83 Other fatigue; R79.89 Other specified abnormal findings of blood chemistry; Z87.891 Personal history of nicotine dependence
CPT/HCPCS: 36415; 71275; 80053; 82803; 83605; 83880; 85025; 87040; 87077; 87154; 87636; 93005; 96374; 99284; 99285; J1200; J7120; Q9967

== ENCOUNTER 2024-11-13 11:52 | Outpatient (CLI) | payer MEDICARE, SELFPAY ==
--- OUTSIDE RECORDS SUMMARY | 2024-06-14 17:30 | XMS_ITS ---
Author Organization [facility] Address [address] [place] [address] Care Team Providers Care Roofing Sales Representative Name Role Phone Red Lee Primary Care Provider Migration, Provider Unavailable Unavailable REAS[facility] Encounter Medications Medication SIG (Take, [...] Active Encounters Encounter Location Date Provider Diagnosis [facility] [address] [place] [address] 06/14/2024 Provider Migration Plan Of Treatment Medication [...] *Please review and pick correct strength-formulation from [facility] options. If intended option is not shown, [...] Notes * Staci SAINZDOB:1959 (64 yo F)Acc No.[id number]:06/14/2024 Patient: Staci JEAN-BAPTISTE Provider: Teri epps Migration :1960 A ge:64 Y S ex:Female Date:06/14/2024 Address:[address] [place], [place] [address] [id number] Pcp:Red Lee Subjective: * Chief Complaints: * [facility] . [facility] * Medical History: * [...] Electronic signature of Fabian prater Migration on 11/13/2024 at 11:56 AM EDT Sign off status: Pending * Provider: Teri epps Migration Date: 0 06/14/2024 Generated for Shane nguyễn/Reyes/Gila on: 0 11/13/2024 11:56 AM EDT
--- NOTE | 2024-11-13 | CA_ITS ---
APPROVED REPORT Exam: Pharmacologic Technologist: Patti Quan Ht: 5 ft 2 in Wt: 288 lbs BSA: 2.23 m2 HR: 61 bpm BP: 126/68 mmHg Medical History Medications: Albuterol, Allopurinol, Alprazolam, Bisoprolol Fumarate, Cetirizine, Vitamin D3, Verapamil, Duloxetine, glipizide ER, Levothyroxine, Losartan, Metformin ER, Nystatin, Omeprazole, Simvastatin. Stress Test Details Test: Lexiscan Reason for pharmacologic stress test: physical limitation. HR Resting HR: 61 bpm Max Heart Rate (APMHR): 154 bpm Max HR Achieved: 79 bpm Target HR (85% APMHR): 131 bpm % of APMHR: 51 Recovery HR: 73 bpm BP Resting BP: 126.0/68.0 mmHg Max BP: 132.0/76.0 mmHg Recovery BP: 117.0/69.0 mmHg ECG Resting ECG: SR Stress ECG Conclusion Symptoms: None. Arrhythmias/Ectopy: None. ST-T Changes: less than 0.5mm upsloping ST segment changes. Conclusion: Nondiagnostic ECG/Lexiscan. Electronically signed by : Suzi Avalos MD 11/14/2024 23:29:28
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
--- OUTSIDE RECORDS SUMMARY | 2024-11-13 11:57 | XMS_ITS | Clinical Summary ---
Author Organization [facility] Address [address] [place] [address] Care Team Providers Care Back Order Clerk Name Role Phone Red Lee MD Primary Care Provider [phone] Family History Medical History Relation Name Comments [...] of Treatment Not on file Care Teams Back Order Clerk Relationship Specialty Start Date End Date Red Lee MD [address] [place] [address] PCP - General 07/23/20
--- NOTE | 2024-11-13 12:30 | NM_ITS ---
APPROVED REPORT Exam: Nuclear Stress Test Indication: htn, dibetes, hyperlipidemia, fm hx, sob, fatigue, edema, dizziness Patient Location: Outpatient Stress Tech: Patti Barrett [place] Tech:Rocío Rebolledo, ARRT RT(R)(N) Ht: 5 ft 1 in Wt: 280 lbs Bra Size: dd HR: 62 bpm BP: 126/68 mmHg BSA: 2.18 m2 TID: 1.38 BMI: 52.9 History: htn, dibetes, hyperlipidemia, fm hx, sob, fatigue, edema, dizziness Procedure: Patient received 0.4 mg of intravenous Lexiscan, resting heart rate 62 bpm, resting blood pressure 126/68 mmHg, with Lexiscan maximum heart rate achieved was 79 bpm which is % of the maximum predicted heart rate and blood pressure was 132/76 mmHg. With Lexiscan, patient denied any complaint of chest pain. Cardiac Stress and Resting SPECT Images: Cardiac Stress and Resting SPECT images were obtained using technetium 99m Myoview 32.8 mCi stress and 11.03 mCi at rest. Resting and stress imaging in supine and prone positions demonstrate no evidence of focal fixed or reversible perfusion defects. There is increase in transient ischemic dilatation ratio (TID 1.38), which may be suggestive of possible multivessel disease or balanced ischemia. Gated imaging demonstrates normal global and regional LV systolic function. LVEF is calculated at 60%. Conclusion: No evidence of focal fixed or reversible perfusion defects. There is increase in transient ischemic dilatation ratio (TID 1.38), which may be suggestive of possible multivessel disease or balanced ischemia. Gated imaging demonstrates normal global and regional LV systolic function. LVEF is calculated at 60%. Electronically signed by : Suzi Avalos MD 11/14/2024 23:25:01
[2024-11-13 14:03] VITALS: BP 126/68; PULSE 61; RESP 14
[2024-11-13] MEDS: SODIUM CHLORIDE 0.9% 10ML SYR (RAD ONLY) 10 ML IV ×2 (14:05)
[2024-11-13] MEDS: ISOTOPE MYOVIEW (PER STUDY) 1 DOSE IV (14:05)
--- NOTE | 2024-11-13 15:15 | CA_ITS ---
APPROVED REPORT EXAM: Comprehensive 2D, Doppler, and color-flow Echocardiogram Mandolin Repairer: Kathy Katz RDCS Ht: 5 ft 2 in Wt: 288lbs BSA: 2.23 BP: 111/68 mmHg Indications: SOA M-Mode Dimensions RVDd 2.43 cm (0.9-2.6) LA Diam 3.37 cm (1.9-4.0) LVDd 5.50 cm (3.5-5.7) LVDs 3.49 cm (3.5-5.7) IVSd 0.94 cm (0.6-1.1) PWd 0.98 cm (0.6-1.1) EF (Teich) 65.70% FS 36.50% EDV (Teich) 147.40 mL TAPSE 2.33 (<1.7) ESV (Teich) 50.50 mL LV Diastology E Decel Time 220 (160-240 msec) E/A Ratio 1.1 Mitral Valve MV E Max Uche. 97.0 (40-130 cm/s) MV A Velocity 87.0 (40-130 cm/s) E/A Ratio 1.11 MV PHT 64.0 ms Left Ventricle The left ventricle is normal size. Left ventricular systolic function is normal. There is normal left ventricular wall thickness. The septum is asynchronous. The left ventricular diastolic function is normal. LVEF is 55-60% Right Ventricle The right ventricle is normal size. The right ventricular systolic function is normal. Atria The left atrium is mildly dilated. The right atrium is mildly dilated. There is no color Doppler evidence of interatrial shunt. Aortic Valve The aortic valve is mildly thickened. There is no hemodynamically significant aortic valvular stenosis. Trace aortic regurgitation is present. Mitral Valve The mitral valve is normal in structure. No evidence of mitral valve stenosis. Trace mitral regurgitation is present. Tricuspid Valve The tricuspid valve leaflets are thin and pliable. Trace tricuspid regurgitation. There is insufficient TR jet to estimate RVSP. Pulmonic Valve The pulmonary valve is grossly normal in structure. Trace pulmonic valve regurgitation is present. Great Vessels The aortic root is normal in size. IVC is normal in size and collapses >50% with inspiration. Pericardium There is no pericardial effusion. Other Information Study Quality: Technically Difficult Conclusion Technically difficult study. Normal biventricular systolic function. Asynchronous septum. Mild biatrial dilation. No significant valvular stenosis or regurgitation. Electronically signed by : Suzi Avalos MD 11/14/2024 23:12:05
== END 2024-11-13 23:59 | disposition home or self-care (01) ==
LOC: RAD 11:53
PROVIDERS: PCP Family Medicine; Visit Provider Physician Assistant
DX: I11.9 Hypertensive heart disease without heart failure (principal); J44.9 Chronic obstructive pulmonary disease, unspecified; E11.9 Type 2 diabetes mellitus without complications; E78.5 Hyperlipidemia, unspecified; R94.39 Abnormal result of other cardiovascular function study; R79.89 Other specified abnormal findings of blood chemistry; R94.31 Abnormal electrocardiogram [ECG] [EKG]; R93.1 Abnormal findings on diagnostic imaging of heart and coronary circulation
CPT/HCPCS: 78452; 93017; 93018; 93306; A9502; J2785

== ENCOUNTER 2024-11-17 15:18 | Outpatient (CLI) | payer MEDICARE, SELFPAY ==
--- NOTE | 2024-11-17 15:20 | XR_ITS ---
FINAL REPORT CLINICAL HISTORY: low back pain COMPARISON: None FINDINGS: AP and lateral views of the lumbar spine were obtained. There is no prior exam for comparison. There is no acute fracture or malalignment. Vertebral body height is preserved. Multilevel degenerative disc disease is present, most pronounced at the L1-2 and L2-3 levels. No acute paraspinal abnormality. IMPRESSION: No acute osseous abnormality of the lumbar spine. Multilevel degenerative disc disease, most pronounced at the L1-2 and L2-3 levels. Reviewed, Interpreted and Dictated by Kayla Catherine MD Transcribed by Veronica Fitzgerald Authenticated and [facility]
--- OUTSIDE RECORDS SUMMARY | 2024-11-17 15:20 | XMS_ITS | Clinical Summary ---
Author Organization [facility] Address [address] [place] [address] Care Team Providers Care Steel Burner Name Role Phone Red Lee MD Primary Care Provider [phone] Family History Medical History Relation Name Comments [...] of Treatment Not on file Care Teams Steel Burner Relationship Specialty Start Date End Date Red Lee MD [address] [place] [address] PCP - General 07/23/20
== END 2024-11-17 23:59 | disposition home or self-care (01) ==
LOC: RT 15:18
PROVIDERS: PCP Family Medicine; Visit Provider Family Medicine
DX: M51.369 Other intervertebral disc degeneration, lumbar region without mention of lumbar back pain or lower extremity pain (principal); R39.9 Unspecified symptoms and signs involving the genitourinary system
CPT/HCPCS: 72100; 87086; 87088; 87186

== ENCOUNTER 2024-11-25 13:45 | Emergency (ER) | payer MEDICARE, SELFPAY ==
--- OUTSIDE RECORDS SUMMARY | 2024-06-14 17:30 | XMS_ITS ---
Author Organization [facility] Address [address] [place] [address] Care Team Providers Care Coke Still Cleaner Name Role Phone Red Lee Primary Care Provider [phone] Migration, Provider Unavailable Unavailable REASON [facility] VISIT [facility] Encounter Medications Medication SIG (Take, Route, [...] Active Encounters Encounter Location Date Provider Diagnosis [facility] [address] [place] [address] 06/14/2024 Provider Migration Plan Of Treatment Medication [...] *Please review and pick correct strength-formulation from [facility] options. If intended option is not [...] Notes * Staci SAINZDOB:1959 (64 yo F)Acc No.[id number]:06/14/2024 Patient: Staci JEAN-BAPTISTE Provider: Teri epps Migration :1960 A ge:64 Y S ex:Female Date:06/14/2024 Address:[address] [place], [place] [address] [id number] Pcp:Red Lee Subjective: * Chief Complaints: * [facility] . [facility] * Medical History: * Medications: [...] Electronic signature of Fabian prater Migration on 11/25/2024 at 02:33 PM EDT Sign off status: Pending * Provider: Teri epps Migration Date: 0 06/14/2024 Generated for Shane nguyễn/Reyes/Gila on: 0 11/25/2024 02:33 PM EDT
[2024-11-25] VITALS (7 sets, daily range): BP systolic 146–170; BP diastolic 60–109; PULSE 60–79; RESP 13–22; TEMP 36.7–37; O2SAT 65–100; BMI 53.8
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
--- OUTSIDE RECORDS SUMMARY | 2024-11-25 14:34 | XMS_ITS ---
Laboratory report Created on: November 14, 2024 JOY SAINZ : 1960 Sex: Female Author Organization Unknown PROBLEMS Problems List Code Description RESULTS Laboratory Orders Date Order Code Test 2024-10-28 [id number] AEROBE ID + SUSC EPT Laboratory Results Date LOINC Test Value Unit Reference Range Interpre tation 2024-10-28 [id number] AEROBE ID + SUSCEPT FINAL A 2024-10-28 [id number] RESULT 1 STAPEP A 2024-10-28 [id number] ANTIMICROBIAL SUSCEPTIBILITY [facility]
--- OUTSIDE RECORDS SUMMARY | 2024-11-25 14:34 | XMS_ITS | Clinical Summary ---
Author Organization [facility] Address [address] [place] [address] Care Team Providers Care Strategic Account Manager Name Role Phone Red Lee MD Primary Care Provider [phone] Family History Medical History Relation Name Comments [...] of Treatment Not on file Care Teams Strategic Account Manager Relationship Specialty Start Date End Date Red Lee MD [address] [place] [address] PCP - General 07/23/20
--- NOTE | 2024-11-25 14:41 | XR_ITS ---
FINAL REPORT CLINICAL HISTORY: Shortness of breath COMPARISON: 09/12/2018 FINDINGS: A single frontal view of the chest was obtained. No acute pulmonary opacity is present. There is no evidence of effusion or pneumothorax. Mediastinum is unremarkable. Heart size is normal. IMPRESSION: No acute abnormality. Reviewed, Interpreted and Dictated by Jorge Roberson MD Transcribed by Lesly Villa Authenticated and [facility]
--- NOTE | 2024-11-25 14:43 | [facility].EDCP ---
Discharge Plan Disposition Chief Complaint: Weakness Prescriptions Prescriptions: No Action nystatin 100,000 unit/gram cream 1 applic topical BID Qty: 30 5RF sulfamethoxazole-trimethoprim 800-160 mg tablet 1 tab PO BID Qty: 14 0RF spironolactone 25 mg tablet 25 mg PO DAILY Qty: 30 2RF losartan 25 mg tablet 25 mg PO DAILY Qty: 30 3RF albuterol sulfate 0.63 mg/3 mL solution for nebulization 0.63 mg inhalation QID PRN (Reason: shortness of breath or wheezing) Qty: 75 2RF levothyroxine 75 mcg tablet 75 mcg PO DAILY Qty: 90 3RF cetirizine 10 mg tablet See Rx Instructions .ROUTE .COMPLEX Qty: 90 1RF Dose Instruction: TAKE ONE TABLET BY MOUTH EVERY DAY Rx Instructions: TAKE ONE TABLET BY MOUTH EVERY DAY verapamil 120 mg tablet See Rx Instructions .ROUTE .COMPLEX Qty: 180 1RF Dose Instruction: TAKE ONE TABLET BY MOUTH TWICE DAILY Rx Instructions: TAKE ONE TABLET BY MOUTH TWICE DAILY simvastatin 40 mg tablet 40 mg PO HS Qty: 90 3RF glipizide 10 mg tablet extended release 24hr 10 mg PO BID 90 Days Qty: 180 3RF Rx Instructions: Take 1 tablet BID cholecalciferol (vitamin D3) 50 mcg (2,000 unit) tablet 2,000 unit PO DAILY 90 Days Qty: 90 0RF omeprazole 40 mg capsule,delayed release(DR/EC) See Rx Instructions .ROUTE .COMPLEX Qty: 90 0RF Dose Instruction: TAKE ONE CAPSULE BY MOUTH EVERY DAY Rx Instructions: TAKE ONE CAPSULE BY MOUTH EVERY DAY duloxetine 60 mg capsule,delayed release(DR/EC) See Rx Instructions .ROUTE .COMPLEX Qty: 90 0RF Dose Instruction: TAKE ONE CAPSULE BY MOUTH EVERY DAY Rx Instructions: TAKE ONE CAPSULE BY MOUTH EVERY DAY metformin 500 mg tablet extended release 24 hr 1,000 mg PO BID 30 Days Qty: 120 2RF allopurinol 100 mg tablet 100 mg PO BID 30 Days Qty: 60 2RF bisoprolol fumarate 5 mg tablet See Rx Instructions .ROUTE .COMPLEX Qty: 90 1RF Dose Instruction: TAKE ONE TABLET BY MOUTH EVERY DAY Rx Instructions: TAKE ONE TABLET BY MOUTH EVERY DAY alprazolam 0.5 mg tablet 0.5 mg PO TIDP PRN (Reason: Anxiety) Qty: 90 2RF Referrals Follow up/Referrals: Paul Noe MD [Primary Care Provider, Internal Medicine] - See instructions Clinical Impressions Clinical Impression: Chest pain, Acute hyperkalemia Stand Alone Forms Stand Alone Forms: Transfer Record - ED Print Language Print Language: Indonesian Discharge ED Provider: Brandon Gusman HPI <Bradnon Gusman MD - Last Filed: 11/25/24 15:53> General Chief Complaint: Weakness Stated Complaint: Weakness/dizziness/confusion Time Seen by Provider: 11/25/24 14:31 History of Present Illness HPI narrative: Staci Rebolledo is a 64y female with a history of COPD, obesity, type 2 diabetes on metformin, hypertension who presents to the emergency department complaining of dizziness and shortness of breath. Patient states that she fell a month ago and injured her left lower extremity. She states that she was on Augmentin and then Bactrim for an infection of her left lower extremity that she had after the fall. She states that her last dose of Bactrim was on Sunday (2 days ago). She states that while taking the Bactrim, she has been nauseated and feeling dizzy. She states that she has had issues with getting dehydrated in the past and feels like she might be dehydrated now. She reports shortness of breath but denies any chest pain. She denies any history of blood clots. She states that she is not on any blood thinning medications. Patient also states that last night, she had some numbness of her tongue and some numbness around her mouth this morning that have since resolved. Related Data Previous Rx's ?Medication ?Instructions ?Recorded albuterol sulfate 0.63 mg/3 mL 0.63 mg (3 mL) inhalation QID PRN 10/12/23 solution for nebulization shortness of breath or wheezing #75 mL levothyroxine 75 mcg tablet 75 mcg PO DAILY THYROID #90 tabs 02/13/24 cetirizine 10 mg tablet See Rx Instructions .Route 04/08/24 .COMPLEX #90 tabs nystatin 100,000 unit/gram topical 1 applic topical BID #30 grams 06/24/24 cream verapamil 120 mg tablet See Rx Instructions .Route 07/09/24 .COMPLEX #180 tabs simvastatin 40 mg tablet 40 mg PO HS Cholesterol #90 tabs 08/07/24 glipizide 10 mg tablet, extended 10 mg PO BID 90 days #180 tabs 09/16/24 release 24 hr allopurinol 100 mg tablet 100 mg PO BID 30 days #60 tabs 10/10/24 bisoprolol fumarate 5 mg tablet See Rx Instructions .Route 10/10/24 .COMPLEX #90 tabs cholecalciferol (vitamin D3) 50 2,000 unit PO DAILY Supplement 90 10/10/24 mcg (2,000 unit) tablet days #90 tabs duloxetine 60 mg capsule,delayed See Rx Instructions .Route 10/10/24 release .COMPLEX #90 caps metformin 500 mg tablet,extended 1,000 mg (2 x 500 mg) PO BID 30 10/10/24 release 24 hr days #120 tabs omeprazole 40 mg capsule,delayed See Rx Instructions .Route 10/10/24 release .COMPLEX #90 caps losartan 25 mg tablet 25 mg PO DAILY #30 tabs 10/30/24 spironolactone 25 mg tablet 25 mg PO DAILY #30 tabs 10/30/24 alprazolam 0.5 mg tablet 0.5 mg PO TIDP PRN Anxiety #90 tabs 11/11/24 sulfamethoxazole 800 1 tab PO BID UTI #14 tabs 11/17/24 mg-trimethoprim 160 mg tablet Allergies Allergy/AdvReac Type Severity Reaction Status Date / Time varicella virus vaccine live Allergy Severe Unknown Verified 11/17/24 13:31 allergy reaction Iodinated Contrast Media Allergy Intermediate Hives Verified 11/17/24 13:31 amoxicillin Allergy Diarrhea Verified 11/17/24 13:31 clavulanic acid (From Allergy Diarrhea Verified 11/17/24 13:31 Augmentin) [facility] <Brandon Gusman MD - Last Filed: 11/25/24 15:53> [facility] Disclaimer: The information contained in this section may have been updated after the patient was seen, as this information can be updated by other users. Medical History (Updated 11/25/24 @ 15:52 by Brandon Gusman MD) Low back pain COPD, severe History of thyroid disease History of sleep apnea History of neuropathy History of kidney disease History of hypertension History of hyperlipidemia History of diabetes as a child History of depression History of CHF (congestive heart failure) History of COPD History of anxiety History of anemia DUSTIN (obstructive sleep apnea) Hypertensive heart and chronic kidney disease with heart failure and stage 1 through stage 4 chronic kidney disease, or unspecified chronic kidney disease Chronic kidney disease, stage 3b Other reduced mobility Age-related physical debility Difficulty in walking, not elsewhere classified Lichen sclerosus of female genitalia Lightheadedness Generalized weakness Orthostatic hypotension Elevated erythrocyte sedimentation rate E. coli UTI Abdominal pain, left upper quadrant JOHNNIE (acute kidney injury) Gastroenteritis Surgical History H/O tubal ligation Family History Father Cancer Other Hyperlipidemia Hypertension Social History Smoking Status: Former smoker tobacco type: cigarettes packs per day: 1 alcohol intake: former substance use type: denies use current occupational status: unemployed and retired Travel in the last 8 weeks?: None household members: spouse housing: house marital status: current occupational exposures/hazards: No caffeine: Yes Have you lived/traveled outside [place] in past 30 days?: No Contact w/someone who lives/traveled outside US past 30 days?: No Exposure to someone with infectious disease in past 14 days?: No Do you have a fever (greater than 100.4 F or 38 C)?: No Have you tested positive for COVID-19?: No Exposed to someone with COVID-19 in past 14 days?: No Do you have a sore throat?: No Do you have a cough?: No Do you have any weakness?: No Do you have any diarrhea?: No Are you experiencing any unusual bleeding?: No Do you have any muscle aches/pain?: No Do you have any abdominal pain?: No Are you experiencing loss of taste or smell?: No Other Medical History Have you received the Flu Vaccine for this season: Yes (2019) Have you received the Pneumonia Vaccine: No <Brandon Gusman MD - Last Filed: 11/25/24 15:53> ROS Obtained: Yes Systems reviewed as appropriate & no additional complaints except as documented Physical Exam <Brandon Gusman MD - Last Filed: 11/25/24 15:53> General General appearance: alert, anxious and obese Head Head exam: atraumatic Eye Eye exam: Present normal appearance ENT ENT exam: Present normal external ear exam Neck Neck exam: Present full ROM Chest Chest inspection: Present symmetric chest wall rise Respiratory Respiratory exam: Present respiratory distress (mild increase work with breathing); Absent normal lung sounds bilaterally (diminished breath sounds on the left) Cardiovascular Cardiovascular exam: Present regular rate and normal rhythm Abdominal Exam Abdominal exam: Present soft; Absent tenderness or guarding Extremities Exam Extremities exam: Present normal inspection Back Exam Back exam: Present normal inspection Neurological Exam Neurological exam: Present alert and oriented X3 Psychiatric Psychiatric exam: Present normal affect Skin Skin exam: Present warm and dry HEART Score <Brandon Gusman MD - Last Filed: 11/25/24 15:53> HEART Score HEART Score assessment performed?: Yes HEART Score: 4 <Deandra Alvarez DO - Last Filed: 11/25/24 18:03> HEART Score HEART Score: 4 Critical Care <Brandon Gusman MD - Last Filed: 11/25/24 15:53> Critical Care Time Critical Care Time: Yes Attestation: On 11/25/24, the high probability of a clinically significant, sudden or life threatening deterioration of the following system(s) required my full and direct attention, intervention and personal management. The time I documented below is in addition to time spent performing reported procedures but includes the following listed in this critical care notation. Total Time Total Critical Care Time: 35 <Deandra Alvarez DO - Last Filed: 11/25/24 18:03> Total Time Total Critical Care Time: 60 Medical Decision Making <Brandon Gusman MD - Last Filed: 11/25/24 15:53> Will Inquiry Pt receiving controlled substance: No Vital Signs Vital Signs: 11/25/24 14:50 11/25/24 15:19 11/25/24 16:01 Temperature 98.1 F 98.1 F Temperature Source Oral Oral Pulse Rate 66 63 Pulse Rate [Right Radial] 79 Respiratory Rate 22 15 17 Blood Pressure 130/85 146/67 H Blood Pressure [Right Arm] 170/109 H Blood Pressure Mean [Right Arm] 129 Blood Pressure Source Automatic Cuff Blood Pressure Source [Right Arm] Automatic Cuff Blood Pressure Position Sitting Blood Pressure Position [Right Arm] Supine 02 Sat by Pulse Oximetry 96 100 Oxygen Delivery Method Room Air Room Air Lab Data Labs: Lab Results 11/25/24 14:41: VBG pH 7.33, VBG pCO2 37.5, VBG pO2 119.7 H, VBG HCO3 19.2 L, VBG Total CO2 20.3 L, VBG O2 Saturation 98.2 H, VBG Base Excess -6.8 L, VBG Lactic Acid 1.8 11/25/24 14:46: WBC 11.9 H, RBC 4.06 L, Hgb 11.3 L, Hct 36.5 L, MCV 89.9, MCH 27.8, MCHC 31.0 L, RDW 16.3, Plt Count 294, MPV 10.7 H, Neut % (Auto) 66.0, Lymph % (Auto) 24.2, Dane % (Auto) 6.3, Eos % (Auto) 1.4, Baso % (Auto) 1.3, Neut # (Auto) 7.8, Lymph # (Auto) 2.9, Dane # (Auto) 0.8, Eos # (Auto) 0.2, Baso # (Auto) 0.2, D-Dimer 0.45, Sodium 136, Potassium 8.5 H*, Chloride 107, Carbon Dioxide 19 L, Anion Gap 18.5 H, BUN 24 H, Creatinine 1.50 H, Estimated Creat Clear 28, Estimated GFR 35 L, Est GFR ( Amer) 42 L, Glucose 40 L*, Calcium 10.0, Magnesium 1.4 L, Total Bilirubin 0.5, AST 37 H, ALT 25, Alkaline Phosphatase 72, Troponin I < 0.01, Total Protein 8.5 H, Albumin 4.8, Globulin 3.7 H, Albumin/Globulin Ratio 1.3, SARS-CoV-2 (PCR) Not detected, Influenza Type A (PCR) Not detected, Influenza Type B (PCR) Not detected, RSV (PCR) Not detected, Rhinovirus (PCR) Not detected 11/25/24 15:39: Sodium 137, Potassium 8.7 H*, Chloride 105, Carbon Dioxide 22, Anion Gap 18.7 H, BUN 25 H, Creatinine 1.50 H, Estimated Creat Clear 28, Estimated GFR 35 L, Est GFR ( Amer) 42 L, Glucose 42 L*, Calcium 10.1, Total Bilirubin 0.4, AST 34, ALT 23, Alkaline Phosphatase 79, Total Protein 8.4 H, Albumin 4.8, Globulin 3.6 H, Albumin/Globulin Ratio 1.3 11/25/24 16:08: POC Glucose 127 H 11/25/24 17:09: Sodium 135 L, Potassium 7.6 H*, Chloride 102, Carbon Dioxide 22, Anion Gap 18.6 H, BUN 24 H, Creatinine 1.50 H, Estimated Creat Clear 28, Estimated GFR 35 L, Est GFR ( Amer) 42 L, Glucose 202 H D, Calcium 10.7 H, Total Bilirubin 0.3, AST 29, ALT 23, Alkaline Phosphatase 82, Total Protein 7.9, Albumin 4.6, Globulin 3.3 H, Albumin/Globulin Ratio 1.4 11/25/24 14:46 11/25/24 17:09 Response Orders (Tests/Meds): ED MEDICATIONS Discontinued Medications Generic Name Dose Route Start Last Admin Trade Name Freq PRN Reason Stop Dose Admin Albuterol Sulfate 7.5 mg 11/25/24 15:38 11/25/24 16:05 Albuterol 0.083% 2.5 Mg/3 Ml [facility] 11/25/24 15:39 7.5 mg ONCE ONE Administration Albuterol Sulfate 12.5 mg 11/25/24 16:07 11/25/24 16:19 Albuterol 0.083% 2.5 Mg/3 Ml [facility] 11/25/24 16:08 12.5 mg ONCE ONE Administration Albuterol/Ipratropium 3 ml 11/25/24 14:44 11/25/24 15:42 Ipratropium/Albuterol 3 Ml [facility] 11/25/24 14:45 3 ml ONCE ONE Administration Dextrose 50 ml 11/25/24 15:20 11/25/24 17:49 Dextrose 50% 50ml Syringe (Crash Cart) IVP 11/25/24 15:21 Not Given ONCE ONE Dextrose 50 ml 11/25/24 15:20 11/25/24 15:36 Dextrose 50% 50ml Syringe (Crash Cart) IVP 11/25/24 15:21 50 ml ONCE ONE Administration Dextrose 50 ml 11/25/24 15:38 11/25/24 16:18 Dextrose 50% 50ml Syringe (Crash Cart) IVP 11/25/24 15:39 50 ml ONCE ONE Administration Furosemide 40 mg 11/25/24 16:10 11/25/24 16:36 Furosemide 40mg/4ml Vial IV 11/25/24 16:11 40 mg ONCE ONE Administration Calcium Gluconate/Sodium Chloride 2 gm in 100 mls @ 50 mls/hr 11/25/24 15:20 11/25/24 17:49 Calcium Gluconate 2,000mg/100ml Nacl Premix IV 11/25/24 17:19 Not Given ONCE ONE Calcium Gluconate/Sodium Chloride 2 gm in 100 mls @ 50 mls/hr 11/25/24 15:30 11/25/24 17:46 Calcium Gluconate 2,000mg/100ml Nacl Premix IV 11/25/24 17:19 Infused ONCE ONE Infusion Magnesium Sulfate 2 gm in 50 mls @ 50 mls/hr 11/25/24 15:51 11/25/24 17:48 Magnesium Sulfate 2gm/50ml Premix IV 11/25/24 16:50 Infused ONCE ONE Infusion Insulin Human Regular 10 unit 11/25/24 15:38 11/25/24 15:57 Insulin Human Regular 100 Units/Ml 10ml Vial IVP 11/25/24 15:39 10 unit ONCE ONE Administration Sodium Zirconium Cyclosilicate 10 gm 11/25/24 15:49 11/25/24 16:19 Lokelma 5gm Packet PO 11/25/24 15:50 10 gm ONCE ONE Administration ORDERS Category Date Time Status CXR --portable [XR chest portable] Stat Exams 11/25/24 14:41 Completed CBC w/Auto Diff [Complete Blood Count Auto Diff] Stat Lab 11/25/24 14:46 Completed CMP [Comprehensive Metabolic Panel] Stat Lab 11/25/24 14:46 Completed CMP [Comprehensive Metabolic Panel] Stat Lab 11/25/24 15:39 Completed CMP [Comprehensive Metabolic Panel] Stat Lab 11/25/24 17:09 Completed D-Dimer Stat Lab 11/25/24 14:46 Completed Magnesium Stat Lab 11/25/24 14:46 Completed Mini Respiratory Panel Stat Lab 11/25/24 14:46 Completed POC Glucose,Bedside Routine Lab 11/25/24 16:08 Completed Troponin I Stat Lab 11/25/24 14:46 Completed UA [Urinalysis and Microscopic] Stat Lab 11/25/24 16:47 Ordered Blood Culture Stat Micro 11/25/24 16:45 Received VBG [Venous Blood Gas] Stat RT 11/25/24 14:41 Completed MDM Narrative Medical Decision Narrative: Staci Rebolledo is a 64y female with a history of COPD, obesity, type 2 diabetes on metformin, hypertension who presents to the emergency department complaining of dizziness and shortness of breath. Patient states that she fell a month ago and injured her left lower extremity. She states that she was on Augmentin and then Bactrim for an infection of her left lower extremity that she had after the fall. She states that her last dose of Bactrim was on Sunday (2 days ago). She states that while taking the Bactrim, she has been nauseated and feeling dizzy. She states that she has had issues with getting dehydrated in the past and feels like she might be dehydrated now. She reports shortness of breath but denies any chest pain. She denies any history of blood clots. She states that she is not on any blood thinning medications. Patient also states that last night, she had some numbness of her tongue and some numbness around her mouth this morning that have since resolved. On arrival, patient is initially hypertensive but blood pressure 170/109 but corrected to 130/85 without intervention. Heart rate within normal limits, afebrile, oxygen saturation 96% on room air. Physical exam, as stated above, revealed an anxious, nontoxic-appearing female with mild increased work of breathing. Cardiopulmonary exam showed diminished breath sounds bilaterally but no wheezing or rhonchi. No cardiac murmurs. Abdomen is soft, nontender nondistended. She is speaking in full sentences. Her left lower extremity is without erythema or swelling. Patient was noted to be hypoglycemic on arrival with fingerstick blood glucose of 44 and was immediately given orange juice. Differential diagnosis includes, but is not limited to: ACS, pulmonary embolism, pneumonia, urinary tract infection, electrolyte derangement, metabolic derangement, among others. The most morbid conditions were considered and workup was based on these. Workup in the emergency department included: Fingerstick blood glucose, chest x-ray, urinalysis, VBG with lactate, CBC with differential, magnesium, mini respiratory panel, troponin, CMP, D-dimer, EKG. Patient was initially started on 1 L lactated ringer. At this time, some of the patient's lab work has come back. CBC with mild leukocytosis of 11.9 without neutrophilia. Hemoglobin is stably low at 11.3, hematocrit 36.5. D-dimer is negative at 0.45. CMP shows significantly elevated potassium of 8.5. EKG does shows some changes consistent with hyperkalemia with a widened QRS but no ST elevation or depression. No peaked T waves. 2 g IV calcium gluconate was immediately ordered. A repeat CMP was also sent to ensure that this value was accurate. Patient was also noted to be persistently hypoglycemic on her CMP with glucose of 40. 2 amps of D50 were ordered. Instructions were given to administer 10 units of regular insulin after stabilization of her glucose. Will start patient on a continuous albuterol nebulizer at this time. Patient to remain on continuous cardiac monitoring. Blood cultures were also ordered. 10 mg of Lokelma was also ordered. Patient's D-dimer was negative at 0.45. Magnesium is low at 1.4 (will replace with 2 g of IV magnesium sulfate). Liver enzymes unremarkable nonactionable. Initial troponin less than 0.01. The remainder of the patient's workup is pending at this time. At this time, patient's care was transferred to the oncoming physician, Dr. Alvarez, pending completion of her workup. <Deandra Alvarez, DO - Last Filed: 11/25/24 18:03> Vital Signs Vital Signs: 11/25/24 14:50 11/25/24 15:19 11/25/24 16:01 Temperature 98.1 F 98.1 F Temperature Source Oral Oral Pulse Rate 66 63 Pulse Rate [Right Radial] 79 Respiratory Rate 22 15 17 Blood Pressure 130/85 146/67 H Blood Pressure [Right Arm] 170/109 H Blood Pressure Mean [Right Arm] 129 Blood Pressure Source Automatic Cuff Blood Pressure Source [Right Arm] Automatic Cuff Blood Pressure Position Sitting Blood Pressure Position [Right Arm] Supine 02 Sat by Pulse Oximetry 96 100 Oxygen Delivery Method Room Air Room Air Lab Data Lab results reviewed: Yes I reviewed the patient's lab results. Labs: Lab Results 11/25/24 14:41: VBG pH 7.33, VBG pCO2 37.5, VBG pO2 119.7 H, VBG HCO3 19.2 L, VBG Total CO2 20.3 L, VBG O2 Saturation 98.2 H, VBG Base Excess -6.8 L, VBG Lactic Acid 1.8 11/25/24 14:46: WBC 11.9 H, RBC 4.06 L, Hgb 11.3 L, Hct 36.5 L, MCV 89.9, MCH 27.8, MCHC 31.0 L, RDW 16.3, Plt Count 294, MPV 10.7 H, Neut % (Auto) 66.0, Lymph % (Auto) 24.2, Dane % (Auto) 6.3, Eos % (Auto) 1.4, Baso % (Auto) 1.3, Neut # (Auto) 7.8, Lymph # (Auto) 2.9, Dane # (Auto) 0.8, Eos # (Auto) 0.2, Baso # (Auto) 0.2, D-Dimer 0.45, Sodium 136, Potassium 8.5 H*, Chloride 107, Carbon Dioxide 19 L, Anion Gap 18.5 H, BUN 24 H, Creatinine 1.50 H, Estimated Creat Clear 28, Estimated GFR 35 L, Est GFR ( Amer) 42 L, Glucose 40 L*, Calcium 10.0, Magnesium 1.4 L, Total Bilirubin 0.5, AST 37 H, ALT 25, Alkaline Phosphatase 72, Troponin I < 0.01, Total Protein 8.5 H, Albumin 4.8, Globulin 3.7 H, Albumin/Globulin Ratio 1.3, SARS-CoV-2 (PCR) Not detected, Influenza Type A (PCR) Not detected, Influenza Type B (PCR) Not detected, RSV (PCR) Not detected, Rhinovirus (PCR) Not detected 11/25/24 15:39: Sodium 137, Potassium 8.7 H*, Chloride 105, Carbon Dioxide 22, Anion Gap 18.7 H, BUN 25 H, Creatinine 1.50 H, Estimated Creat Clear 28, Estimated GFR 35 L, Est GFR ( Amer) 42 L, Glucose 42 L*, Calcium 10.1, Total Bilirubin 0.4, AST 34, ALT 23, Alkaline Phosphatase 79, Total Protein 8.4 H, Albumin 4.8, Globulin 3.6 H, Albumin/Globulin Ratio 1.3 11/25/24 16:08: POC Glucose 127 H 11/25/24 17:09: Sodium 135 L, Potassium 7.6 H*, Chloride 102, Carbon Dioxide 22, Anion Gap 18.6 H, BUN 24 H, Creatinine 1.50 H, Estimated Creat Clear 28, Estimated GFR 35 L, Est GFR ( Amer) 42 L, Glucose 202 H D, Calcium 10.7 H, Total Bilirubin 0.3, AST 29, ALT 23, Alkaline Phosphatase 82, Total Protein 7.9, Albumin 4.6, Globulin 3.3 H, Albumin/Globulin Ratio 1.4 Response Orders (Tests/Meds): ED MEDICATIONS Discontinued Medications Generic Name Dose Route Start Last Admin Trade Name Genevieve PRN Reason Stop Dose Admin Albuterol Sulfate 7.5 mg 11/25/24 15:38 11/25/24 16:05 Albuterol 0.083% 2.5 Mg/3 Ml [facility] 11/25/24 15:39 7.5 mg ONCE ONE Administration Albuterol Sulfate 12.5 mg 11/25/24 16:07 11/25/24 16:19 Albuterol 0.083% 2.5 Mg/3 Ml [facility] 11/25/24 16:08 12.5 mg ONCE ONE Administration Albuterol/Ipratropium 3 ml 11/25/24 14:44 11/25/24 15:42 Ipratropium/Albuterol 3 Ml [facility] 11/25/24 14:45 3 ml ONCE ONE Administration Dextrose 50 ml 11/25/24 15:20 11/25/24 17:49 Dextrose 50% 50ml Syringe (Crash Cart) IVP 11/25/24 15:21 Not Given ONCE ONE Dextrose 50 ml 11/25/24 15:20 11/25/24 15:36 Dextrose 50% 50ml Syringe (Crash Cart) IVP 11/25/24 15:21 50 ml ONCE ONE Administration Dextrose 50 ml 11/25/24 15:38 11/25/24 16:18 Dextrose 50% 50ml Syringe (Crash Cart) IVP 11/25/24 15:39 50 ml ONCE ONE Administration Furosemide 40 mg 11/25/24 16:10 11/25/24 16:36 Furosemide 40mg/4ml Vial IV 11/25/24 16:11 40 mg ONCE ONE Administration Calcium Gluconate/Sodium Chloride 2 gm in 100 mls @ 50 mls/hr 11/25/24 15:20 11/25/24 17:49 Calcium Gluconate 2,000mg/100ml Nacl Premix IV 11/25/24 17:19 Not Given ONCE ONE Calcium Gluconate/Sodium Chloride 2 gm in 100 mls @ 50 mls/hr 11/25/24 15:30 11/25/24 17:46 Calcium Gluconate 2,000mg/100ml Nacl Premix IV 11/25/24 17:19 Infused ONCE ONE Infusion Magnesium Sulfate 2 gm in 50 mls @ 50 mls/hr 11/25/24 15:51 11/25/24 17:48 Magnesium Sulfate 2gm/50ml Premix IV 11/25/24 16:50 Infused ONCE ONE Infusion Insulin Human Regular 10 unit 11/25/24 15:38 11/25/24 15:57 Insulin Human Regular 100 Units/Ml 10ml Vial IVP 11/25/24 15:39 10 unit ONCE ONE Administration Sodium Zirconium Cyclosilicate 10 gm 11/25/24 15:49 11/25/24 16:19 Lokelma 5gm Packet PO 11/25/24 15:50 10 gm ONCE ONE Administration ORDERS Category Date Time Status CXR --portable [XR chest portable] Stat Exams 11/25/24 14:41 Completed CBC w/Auto Diff [Complete Blood Count Auto Diff] Stat Lab 11/25/24 14:46 Completed CMP [Comprehensive Metabolic Panel] Stat Lab 11/25/24 14:46 Completed CMP [Comprehensive Metabolic Panel] Stat Lab 11/25/24 15:39 Completed CMP [Comprehensive Metabolic Panel] Stat Lab 11/25/24 17:09 Completed D-Dimer Stat Lab 11/25/24 14:46 Completed Magnesium Stat Lab 11/25/24 14:46 Completed Mini Respiratory Panel Stat Lab 11/25/24 14:46 Completed POC Glucose,Bedside Routine Lab 11/25/24 16:08 Completed Troponin I Stat Lab 11/25/24 14:46 Completed UA [Urinalysis and Microscopic] Stat Lab 11/25/24 16:47 Ordered Blood Culture Stat Micro 11/25/24 16:45 Received VBG [Venous Blood Gas] Stat RT 11/25/24 14:41 Completed MDM Narrative Medical Decision Narrative: Staci Rebolledo is a 64y female with a history of COPD, obesity, type 2 diabetes on metformin, hypertension who presents to the emergency department complaining of dizziness and shortness of breath. Patient states that she fell a month ago and injured her left lower extremity. She states that she was on Augmentin and then Bactrim for an infection of her left lower extremity that she had after the fall. She states that her last dose of Bactrim was on Sunday (2 days ago). She states that while taking the Bactrim, she has been nauseated and feeling dizzy. She states that she has had issues with getting dehydrated in the past and feels like she might be dehydrated now. She reports shortness of breath but denies any chest pain. She denies any history of blood clots. She states that she is not on any blood thinning medications. Patient also states that last night, she had some numbness of her tongue and some numbness around her mouth this morning that have since resolved. On arrival, patient is initially hypertensive but blood pressure 170/109 but corrected to 130/85 without intervention. Heart rate within normal limits, afebrile, oxygen saturation 96% on room air. Physical exam, as stated above, revealed an anxious, nontoxic-appearing female with mild increased work of breathing. Cardiopulmonary exam showed diminished breath sounds bilaterally but no wheezing or rhonchi. No cardiac murmurs. Abdomen is soft, nontender nondistended. She is speaking in full sentences. Her left lower extremity is without erythema or swelling. Patient was noted to be hypoglycemic on arrival with fingerstick blood glucose of 44 and was immediately given orange juice. Differential diagnosis includes, but is not limited to: ACS, pulmonary embolism, pneumonia, urinary tract infection, electrolyte derangement, metabolic derangement, among others. The most morbid conditions were considered and workup was based on these. Workup in the emergency department included: Fingerstick blood glucose, chest x-ray, urinalysis, VBG with lactate, CBC with differential, magnesium, mini respiratory panel, troponin, CMP, D-dimer, EKG. Patient was initially started on 1 L lactated ringer. At this time, some of the patient's lab work has come back. CBC with mild leukocytosis of 11.9 without neutrophilia. Hemoglobin is stably low at 11.3, hematocrit 36.5. D-dimer is negative at 0.45. CMP shows significantly elevated potassium of 8.5. EKG does shows some changes consistent with hyperkalemia with a widened QRS but no ST elevation or depression. No peaked T waves. 2 g IV calcium gluconate was immediately ordered. A repeat CMP was also sent to ensure that this value was accurate. Patient was also noted to be persistently hypoglycemic on her CMP with glucose of 40. 2 amps of D50 were ordered. Instructions were given to administer 10 units of regular insulin after stabilization of her glucose. Will start patient on a continuous albuterol nebulizer at this time. Patient to remain on continuous cardiac monitoring. Blood cultures were also ordered. 10 mg of Lokelma was also ordered. Patient's D-dimer was negative at 0.45. Magnesium is low at 1.4 (will replace with 2 g of IV magnesium sulfate). Liver enzymes unremarkable nonactionable. Initial troponin less than 0.01. The remainder of the patient's workup is pending at this time. At this time, patient's care was transferred to the oncoming physician, Dr. Alvarez, pending completion of her workup. Deandra Alvarez, DO I assumed care of the patient at 1500. Patient's repeat CMP showed worsening potassium of 8.7. Patient's kidney function was only mildly elevated at 1.5. As noted above, patient received 2 amps of D50 as well as IV insulin. Patient's repeat blood sugar was 127. Patient was given 2 g of calcium gluconate. Patient was given 20 of albuterol as well as Lokelma. Patient was also given 40 of IV lasix. Patient did report some improvement in her symptoms. Repeat CMP was obtained which showed a repeat potassium of 7.6. Repeat EKG was also obtained which showed narrowing of the QRS complex, no other acute ST or T wave changes concerning for ischemia. Given that patient would potentially need dialysis given only minimal improvement of her potassium above the patient warranted transfer to a hospital that had acute abilities of dialysis. Family noted that [place] is a closer commute therefore [facility] was contacted. They accepted the patient for transfer to be admitted to the Med[facility] unit by provider Dr. Koenig. Patient was sent in stable condition via ALS ambulance.
[2024-11-25 14:52] LABS: Coronavirus 19, PCR Not Detected (NotDetected); Influenza A, PCR Not Detected (NotDetected); Influenza B, PCR Not Detected (NotDetected)
[2024-11-25 14:56] LABS: Lactate Venous 1.8 mmol/L (0.4-2.0); VBG HCO3 19.2 mmol/L (23-30); VBG PCO2 37.5 mmol/L (35-51); VBG PH 7.33 mmol/L (7.31-7.41); VBG PO2 119.7 mmol/L (28-40)
[2024-11-25 14:57] LABS: Hematocrit 36.5 % (37.0-47.0); Hemoglobin 11.3 g/dL (12.2-16.2); Immature Granulocytes % 0.8 %; Mean Corpuscular HGB Conc 31.0 g/dL (31.8-35.4); Mean Corpuscular Hemoglobin 27.8 pg (27.0-31.2); Mean Corpuscular Volume 89.9 fl (81-99); Nucleated Red Blood Cells % 0 %; Platelet Count 294 K/mm3 (142-424); Red Blood Count 4.06 M/mm3 (4.20-5.40); Red Cell Distribution Width-SD 53.3 fL; White Blood Count 11.9 K/mm3 (4.8-10.8)
--- NOTE | 2024-11-25 15:01 | ECG_ITS ---
APPROVED REPORT Exam: Resting ECG HR:68 bpm ECG Measurements Heart Rate 68 AXES AL 252 P -89 QRSd 178 QRS -67 QT 416 T 82 QTc 432 Conclusion SINUS RHYTHM WITH FIRST DEGREE AV BLOCK LEFT AXIS DEVIATION [QRS AXIS < -30] LEFT BUNDLE BRANCH BLOCK [120+ ms QRS DURATION, 80+ ms Q/S IN V1/V2, 85+ ms R IN I/aVL/V5/V6] ABNORMAL ECG UNCONFIRMED REPORT QRS widening. No ST elevation or depression. No peaked T waves. QTc of 432 Electronically signed by : CONSTANCE CAREY, 11/25/2024 16:00:10
--- NOTE | 2024-11-25 15:07 | PC.NURSE ---
patient drank 2 orange juice
[2024-11-25 15:08] LABS: Alanine Aminotransferase 25 U/L (12-78); Albumin Level 4.8 g/dl (3.5-5.0); Albumin/Globulin Ratio 1.3 (1.1-1.8); Alkaline Phosphatase 72 U/L (38-126); Anion Gap 18.5 mEq/L (5-15); Aspartate Amino Transferase 37 U/L (14-36); Bilirubin,Total 0.5 mg/dl (0.2-1.3); Blood Urea Nitrogen 24 mg/dl (7-17); Calcium 10.0 mg/dl (8.4-10.2); Carbon Dioxide 19 mmol/L (22.0-30.0); Chloride 107 mmol/L (98-107); Creatinine Clearance Estimated 28 mL/min (50-200); Creatinine,Serum 1.50 mg/dl (0.52-1.04); Estimated Glomerular Filt Rate 35 ml/min (>60); GFR (African American) 42 ML/MIN (>60); Globulin 3.7 g/dL (1.3-3.2); Magnesium 1.4 mg/dl (1.6-2.3); Sodium 136 mmol/L (136-145); Total Protein,Serum 8.5 g/dl (6.3-8.2)
[2024-11-25 15:10] LABS: Glucose 40 mg/dl (74-100); Potassium 8.5 mmoL/L (3.5-5.1)
--- NOTE | 2024-11-25 15:10 | PC.NURSE ---
CRITICAL K+ 8.5 AND GLUCOSE 40. PT NAME AND R/V. DR FLYNN NOTIFIED
[2024-11-25 15:13] LABS: D-Dimer 0.45 ug/mL (0.0-0.5)
[2024-11-25 15:21] LABS: Troponin I < 0.01 ng/ml (0.00-0.034)
[2024-11-25] MEDS: DEXTROSE 50% 50ML SYRINGE (CRASH CART) 50 ML IVP ×2 (15:36→16:18)
[2024-11-25] MEDS: IPRATROPIUM/ALBUTEROL 3 ML NEB IH (15:42)
[2024-11-25] MEDS: CALCIUM GLUC IN NACL, ISO-OSM 2 GM/100 ML BAG IV (15:42)
[2024-11-25 15:54] LABS: Albumin Level 4.8 g/dl (3.5-5.0); Chloride 105 mmol/L (98-107); Sodium 137 mmol/L (136-145)
[2024-11-25 15:57] LABS: Alanine Aminotransferase 23 U/L (12-78); Albumin/Globulin Ratio 1.3 (1.1-1.8); Alkaline Phosphatase 79 U/L (38-126); Anion Gap 18.7 mEq/L (5-15); Aspartate Amino Transferase 34 U/L (14-36); Bilirubin,Total 0.4 mg/dl (0.2-1.3); Blood Urea Nitrogen 25 mg/dl (7-17); Carbon Dioxide 22 mmol/L (22.0-30.0); Creatinine Clearance Estimated 28 mL/min (50-200); Creatinine,Serum 1.50 mg/dl (0.52-1.04); Estimated Glomerular Filt Rate 35 ml/min (>60); GFR (African American) 42 ML/MIN (>60); Globulin 3.6 g/dL (1.3-3.2); Total Protein,Serum 8.4 g/dl (6.3-8.2)
[2024-11-25] MEDS: INSULIN HUMAN REGULAR 100 UNITS/ML 10ML VIAL 10 UNIT IVP (15:57)
[2024-11-25 15:58] LABS: Calcium 10.1 mg/dl (8.4-10.2)
[2024-11-25 16:02] LABS: Glucose 42 mg/dl (74-100); Potassium 8.7 mmoL/L (3.5-5.1)
--- NOTE | 2024-11-25 16:04 | PC.NURSE ---
K+ 8.7 and Glucose is 42 mg/dl. Antonio and RN notified
[2024-11-25] MEDS: ALBUTEROL 0.083% 2.5 MG/3 ML NEB 7.5 MG IH (16:05)
[2024-11-25 16:15] LABS: POC Glucose,Bedside 127 gm/dL (70-110)
[2024-11-25] MEDS: MAGNESIUM SULFATE IN WATER 2 GM/50 ML PIGGYBACK IV (16:18)
[2024-11-25] MEDS: ALBUTEROL 0.083% 2.5 MG/3 ML NEB 12.5 MG IH (16:19)
[2024-11-25] MEDS: LOKELMA 5GM PACKET 10 GM PO (16:19)
[2024-11-25] MEDS: FUROSEMIDE 40MG/4ML VIAL 40 MG IV (16:36)
--- NOTE | 2024-11-25 16:47 | PC.NURSE ---
Called [facility] for transfer of this pt to [facility] for Dialysis. Transfer center has us on hold while they try and make contact with [facility]. Dr Alvarez is speaking with [facility] at this time.
[2024-11-25 17:21] LABS: Albumin Level 4.6 g/dl (3.5-5.0); Chloride 102 mmol/L (98-107); Sodium 135 mmol/L (136-145)
[2024-11-25 17:24] LABS: Alanine Aminotransferase 23 U/L (12-78); Albumin/Globulin Ratio 1.4 (1.1-1.8); Alkaline Phosphatase 82 U/L (38-126); Anion Gap 18.6 mEq/L (5-15); Aspartate Amino Transferase 29 U/L (14-36); Bilirubin,Total 0.3 mg/dl (0.2-1.3); Blood Urea Nitrogen 24 mg/dl (7-17); Carbon Dioxide 22 mmol/L (22.0-30.0); Creatinine Clearance Estimated 28 mL/min (50-200); Creatinine,Serum 1.50 mg/dl (0.52-1.04); Estimated Glomerular Filt Rate 35 ml/min (>60); GFR (African American) 42 ML/MIN (>60); Globulin 3.3 g/dL (1.3-3.2); Total Protein,Serum 7.9 g/dl (6.3-8.2)
[2024-11-25 17:25] LABS: Calcium 10.7 mg/dl (8.4-10.2); Glucose 202 mg/dl (74-100)
[2024-11-25 17:26] LABS: Potassium 7.6 mmoL/L (3.5-5.1)
--- NOTE | 2024-11-25 17:42 | ECG_ITS ---
APPROVED REPORT Exam: Resting ECG HR:60 bpm ECG Measurements Heart Rate 60 AXES UT 176 P 77 QRSd 125 QRS -56 QT 404 T 79 QTc 405 Conclusion SINUS RHYTHM WITH SINUS ARRHYTHMIA LEFT AXIS DEVIATION [QRS AXIS < -30] MODERATE INTRAVENTRICULAR CONDUCTION DELAY [105+ ms QRS DURATION, 80+ ms Q/S IN V1/V2, NO Q AND 60+ ms R IN I/aVL/V5/V6] ABNORMAL ECG UNCONFIRMED REPORT Electronically signed by : LEILANI HARO, 11/26/2024 07:44:41
[2024-11-27 15:40] LABS: POC Glucose,Bedside 47 gm/dL (70-110)
[2024-11-27 15:42] LABS: POC Glucose,Bedside 46 gm/dL (70-110)
[2024-11-27 15:42] LABS: POC Glucose,Bedside 44 gm/dL (70-110)
== END 2024-11-25 18:43 | disposition short-term general hospital (02) ==
PROVIDERS: Student in an Organized Health Care Education/Training Program; Emergency Provider Student in an Organized Health Care Education/Training Program; PCP Family Medicine
DX: E87.5 Hyperkalemia (principal); R07.89 Other chest pain; R06.02 Shortness of breath; E11.649 Type 2 diabetes mellitus with hypoglycemia without coma; E83.42 Hypomagnesemia; I12.9 Hypertensive chronic kidney disease with stage 1 through stage 4 chronic kidney disease, or unspecified chronic kidney disease; J44.9 Chronic obstructive pulmonary disease, unspecified; N18.32 Chronic kidney disease, stage 3b; Z87.891 Personal history of nicotine dependence; Z79.84 Long term (current) use of oral hypoglycemic drugs
CPT/HCPCS: 51702; 71045; 80053; 82803; 82962; 83735; 84484; 85025; 85378; 87040; 87631; 93005; 96365; 96366; 96367; 96375; 99285; 99291; 99292; J0612; J1938; J3475; J7120

== ENCOUNTER 2024-12-01 12:47 | Outpatient (CLI) | payer MEDICARE, SELFPAY ==
--- OUTSIDE RECORDS SUMMARY | 2024-06-14 17:30 | XMS_ITS ---
Author Organization [facility] Address [address] [place] [address] Care Team Providers Care Insurance Agents Supervisor Name Role Phone Red Lee Primary Care Provider [phone] Migration, Provider Unavailable Unavailable REASON FOR VISIT [facility] Encounter Medications Medication SIG (Take, Route, [...] Active Encounters Encounter Location Date Provider Diagnosis [facility] [address] [facility] [address] [facility] [address] [place] [address] 06/14/2024 Provider Migration Plan Of Treatment Medication [...] *Please review and pick correct strength-formulation from [employer] options. If intended option is not shown, [...] orally once a day; Duration: 90 days Next Appt Details Provider Name:Red Lee, 12/03/2024 03:30:00 PM, [address] [facility], [address], [place], [address], Progress Notes * Staci SAINZDOB:1959 (64 yo F)Acc No.[id number]:06/14/2024 Patient: Staci JEAN-BAPTISTE Provider: Teri epps Migration :1960 A ge:64 Y S ex:Female Date:06/14/2024 Address:[address] [place] [address] [place] [id number] Pcp:Red Lee Subjective: * Chief Complaints: * 1 . Multum To Med[facility] Conversion Encounter. * Medical History: * Medications: [...] * Treatment: * * Electronic signature of Prov josi Migration on 12/01/2024 at 12:57 PM EDT Sign off status: Pending * Provider: Teri epps Migration Date: 0 06/14/2024 Generated for Shane nguyễn/Reyes/Gila on: 0 12/01/2024 12:57 PM EDT
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
--- OUTSIDE RECORDS SUMMARY | 2024-12-01 12:57 | XMS_ITS | Clinical Summary ---
Author Organization [facility] Address [address] [place] [address] Care Team Providers Care Psych Np Name Role Phone Red Lee MD Primary Care Provider [phone] Family History Medical History Relation Name Comments [...] of Treatment Not on file Care Teams Psych Np Relationship Specialty Start Date End Date Red Lee MD [address] [place] [address] PCP - General 07/23/20
[2024-12-01 14:21] LABS: Chloride 107 mmol/L (98-107); Sodium 140 mmol/L (136-145)
[2024-12-01 14:22] LABS: Potassium 5.1 mmoL/L (3.5-5.1)
[2024-12-01 14:24] LABS: Blood Urea Nitrogen 25 mg/dl (7-17); Creatinine,Serum 1.30 mg/dl (0.52-1.04); Estimated Glomerular Filt Rate 41 ml/min (>60); GFR (African American) 50 ML/MIN (>60)
[2024-12-01 14:25] LABS: Anion Gap 17.1 mEq/L (5-15); Calcium 9.5 mg/dl (8.4-10.2); Carbon Dioxide 21 mmol/L (22.0-30.0); Glucose 127 mg/dl (74-100)
== END 2024-12-01 23:59 | disposition home or self-care (01) ==
LOC: LAB 12:54
PROVIDERS: PCP Internal Medicine Adolescent Medicine; Visit Provider Family Medicine
DX: I11.0 Hypertensive heart disease with heart failure (principal)
CPT/HCPCS: 36415; 80048

== ENCOUNTER 2024-12-29 15:21 | Outpatient (CLI) | payer MEDICARE, SELFPAY ==
--- NOTE | 2024-12-29 15:30 | US_ITS ---
PROCEDURE INFORMATION: Exam: US Left Breast, Complete Exam date and time: 12/29/2024 3:29 PM Age: 64 years old Clinical indication: Breast pain; question left abscess. TECHNIQUE: Imaging protocol: Complete ultrasound of all four quadrants of the left breast and the retroareolar regions, including ultrasound of the axilla when performed. COMPARISON: MG MM DIG SCREENING MAMM BI W/CAD 07/01/2024 4:05 PM FINDINGS: ULTRASOUND: Breast ultrasound findings: In the left breast at the area of concern, 2 o'clock axis, 8 cm from the nipple there is skin thickening with localized edema within the skin measuring 1.5 x 0.3 x 1.6 cm. No drainable fluid collection is seen. There is no underlying mass or shadowing. In the left breast upper inner quadrant, 9 o'clock axis, 5 cm from the nipple, there is a complicated cyst that measures 0.4 x 0.4 x 0.5 cm. This is probably benign. IMPRESSION: 1. Localized edema within the skin of the left breast at 2 o'clock, 8 cm from the nipple. Clinical follow-up and management is recommended. 2. Incidentally, there is a complicated cyst in the left breast at the 9 o'clock axis, 5 cm from the nipple. Six-month follow-up left breast ultrasound is recommended for close surveillance. ASSESSMENT: BI-RADS Category 3: Probably benign.
== END 2024-12-29 23:59 | disposition home or self-care (01) ==
LOC: RAD 15:21
PROVIDERS: PCP Internal Medicine Adolescent Medicine; Visit Provider Surgery
DX: N61.1 Abscess of the breast and nipple (principal); N60.02 Solitary cyst of left breast
CPT/HCPCS: 76641

== ENCOUNTER 2025-02-04 15:30 | Outpatient (RCR) | payer MEDICARE, SELFPAY ==
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
== END 2025-02-04 23:59 | disposition home or self-care (01) ==
LOC: PT.CARL 15:30
PROVIDERS: PCP Internal Medicine Adolescent Medicine; Visit Provider Internal Medicine Adolescent Medicine
DX: M12.9 Arthropathy, unspecified (principal); M62.81 Muscle weakness (generalized); W19.XXXA Unspecified fall, initial encounter
CPT/HCPCS: 97110; 97112; 97162; 97530

== ENCOUNTER 2025-02-10 12:56 | Outpatient (RCR) | payer MEDICARE, SELFPAY | END 2025-02-16 10:49 | disposition home or self-care (01) | LOC: PT.CARL 12:56 | PROVIDERS: PCP Internal Medicine Adolescent Medicine; Visit Provider Internal Medicine Adolescent Medicine | DX: M12.9 Arthropathy, unspecified (principal); W19.XXXA Unspecified fall, initial encounter; M62.81 Muscle weakness (generalized) | CPT/HCPCS: 97110 ==